=== PATIENT | male | born 1990 | race African-American/Black ===

== ENCOUNTER 2017-03-22 18:22 | Emergency (ER) | payer SELFPAY ==
[2017-03-22 18:33] VITALS: BP 127/74
[2017-03-22] MEDS ORDERED: DOXYcycline CAP(*) 100 MG PO ONE (19:14)
--- NOTE | 2017-03-22 20:08 | UC ---
Radha Medrano Emily, scribed for Kennedy Summers MD on 03/22/17 at 1905 . Complaint Male HPI - HPI Summary HPI Summary: This patient is a 26 year old M presenting to [facility] with a chief complaint of dysuria since approximately one week ago. He states it hurts in his groin when he urinates but it does not burn. Symptoms alleviated by nothing. Patient reports increased thirst, weight loss, dehydration, lightheadedness, suprapubic abdominal pain, vomiting, urinary frequency, vision changes (thought he saw light out of the corner of his eye), and loss of appetite. Patient denies penile discharge, and hematuria. He takes a baby ASA daily. He reports working 80 hours a week. PMHx of A-Fib (Cardioversion 5 years ago). Medications reviewed. Allergies reviewed. - History of Current Complaint Chief Complaint: UCGeneralIllness Stated Complaint: UTI Time Seen by Provider: 03/22/17 18:46 Hx Obtained From: Patient Onset/Duration: Sudden Onset, Lasting Weeks - 1, Still Present Timing: Constant Severity Initially: Moderate Severity Currently: Moderate Location: Groin Alleviating Factor(s): Nothing Associated Signs And Symptoms: Positive: Dysuria, Vomiting(# Of Episodes =). Negative: Hematuria, Appetite, Penile Discharge - Allergies/Home Medications Allergies/Adverse Reactions: Allergies Allergy/AdvReac Type Severity Reaction Status Date / Time Eggs or Egg-derived Products Allergy Severe Hives Verified 03/22/17 18:35 Gluten Meal Allergy Abdominal Verified 03/22/17 18:35 Pain Milk-related Compounds Allergy Abdominal Verified 03/22/17 18:35 Pain Peanut-containing Drug Allergy Airway Verified 03/22/17 18:35 Products Obstruction BANANAS Allergy Severe Rash Uncoded 03/22/17 18:35 Home Medications: Home Medications Cetirizine* [ZyrTEC 10 MG TAB*] 1 cap PO DAILY 03/22/17 [History Confirmed 03/22] PMH/Surg Hx/FS Hx/Imm Hx Cardiovascular History: Atrial Fibrillation Other History Of: Anticoagulant Therapy - asa 325mg daily - Surgical History Surgical History: None - Family History Known Family History: Positive: Diabetes - Social History Alcohol Use: Occasionally Substance Use Type: Marijuana Smoking Status (MU): Heavy Every Day Tobacco Smoker Amount Used/How Often: 1/2 PPD - Immunization History Most Recent Tetanus Shot: last year 2011, at dr yen[facility] Review of Systems Eyes: Other - vision changes (thought he saw light out of the corner of his eye) Gastrointestinal: Abdominal Pain - suprapubic, Vomiting, Other - increased thirst, weight loss, dehydration, loss of appetite Genitourinary: Dysuria, Frequency, Other - Negative penile discharge and hematuria. Neurological: Other - lightheadedness All Other Systems Reviewed And Are Negative: Yes Physical Exam Triage Information Reviewed: Yes Vital Signs: Initial Vital Signs Temp 98.1 F 03/22/17 18:29 Pulse 97 03/22/17 18:29 Resp 12 03/22/17 18:29 BP 127/74 03/22/17 18: Pulse Ox 100 03/22/17 18:29 Vital Signs Reviewed: Yes - Additional Comments The patient is well-nourished in no acute distress and in no acute pain. The skin is warm and dry and skin color reflects adequate perfusion. HEENT: The head is normocephalic and atraumatic. The pupils are equal and reactive. The conjunctivae are clear and without drainage. Nares are patent and without drainage. Mouth reveals moist mucous membranes and the throat is without erythema and exudate. The external ears are intact. The ear canals are patent and without drainage. The tympanic membranes are intact. Neck is supple with full range of motion and non-tender. There are no carotid bruits. There is no neck vein distension. Respiratory: Chest is non-tender. Lungs are clear to auscultation and breath sounds are symmetrical and equal. Cardiovascular: Heart is regular rate and rhythm. There is no murmur or rub auscultated. There is no peripheral edema and pulses are symmetrical and equal. Abdomen: The abdomen is soft and non-tender. There are normal bowel sounds heard in all four quadrants and there is no organomegaly palpated. Bilateral inguinal adenopathy. Testicles nontender. Musculoskeletal: There is no back pain noted. Extremities are non-tender with full range of motion. There is good capillary refill. There is no peripheral edema or calf tenderness elicited. Neurological: Patient is alert and oriented to person, place and time. The patient has symmetrical motor strength in all four extremities. Cranial nerves are grossly intact. Deep tendon reflexes are symmetrical and equal in all four extremities. Psychiatric: The patient has an appropriate affect and does not exhibit any anxiety or depression. Complaint Male Course/Dx - Course Course Of Treatment: This patient is a 26 year old M presenting to [facility] with a chief complaint of dysuria since approximately one week ago. He states it hurts in his groin when he urinates but it does not burn. Symptoms alleviated by nothing. Patient reports increased thirst, weight loss, dehydration, lightheadedness, suprapubic abdominal pain, vomiting, urinary frequency, vision changes (thought he saw light out of the corner of his eye), and loss of appetite. Patient denies penile discharge, and hematuria. He takes a baby ASA daily. He reports working 80 hours a week. PMHx of A-Fib (Cardioversion 5 years ago). Medications reviewed. Allergies reviewed. Patient will be discharged with prescription and follow up from PCP. The patient is agreeable with this plan. - Differential Dx/Diagnosis Differential Diagnosis/HQI/PQRI: Prostatitis, Urinary Tract Infection, Other - std, diabetes mellitus Provider Diagnoses: Prostatitis, hematuria. Discharge - Discharge Plan Condition: Stable Disposition: HOME Prescriptions: DOXYcycline CAP(*) [DOXYcycline 100MG CAP(*)] 100 mg PO BID #18 cap Patient Education Materials: Prostatitis (ED), Hematuria (ED) Referrals: [facility] [Outside] - 7 Days The documentation as recorded by the Radha pardo Emily accurately reflects the service I personally performed and the decisions made by me, Kennedy Summers MD.
== END 2017-03-22 19:28 | disposition home or self-care (01) ==
LOC: UCEAST 18:22
DX: N41.9 Inflammatory disease of prostate, unspecified (principal); R31.9 Hematuria, unspecified; R30.0 Dysuria; R11.10 Vomiting, unspecified; R63.4 Abnormal weight loss; R42 Dizziness and giddiness; E86.0 Dehydration; I48.91 Unspecified atrial fibrillation; Z79.82 Long term (current) use of aspirin; F12.90 Cannabis use, unspecified, uncomplicated; F17.210 Nicotine dependence, cigarettes, uncomplicated
CPT/HCPCS: 81003; 87086; 87491; 87591; 99212; A9270-GY; G0463

== ENCOUNTER 2017-04-24 05:52 | Observation (INO) | payer SELFPAY ==
[2017-04-24 06:42] LABS: Hematocrit 44 % (42-52); Hemoglobin 14.5 g/dl (14.0-18.0); Mean Corpuscular HGB Conc 33 g/dl (31-36); Mean Corpuscular Hemoglobin 29 pg (27-31); Mean Corpuscular Volume 88 fL (80-94); Mean Platelet Volume 9 um3 (7.4-10.4); Red Blood Count 4.97 10^6/ul (4.0-5.4); Red Cell Distribution Width 14 % (10.5-15)
[2017-04-24 06:58] LABS: Albumin 4.7 g/dL (3.2-5.2); BUN/Creatinine Ratio 12.8 (8-20); Calcium 9.3 mg/dL (8.6-10.3); EGFR African American 122.9 (>60); EGFR Non-African American 95.6 (>60); Globulin 2.9 g/dL (2-4); Magnesium 1.9 mg/dL (1.9-2.7); Potassium 3.7 mmol/L (3.5-5.0); Total Bilirubin 0.6 mg/dL (0.2-1.0); Total Protein 7.6 g/dL (6.4-8.9)
[2017-04-24 07:23] LABS: TSH (Thyroid Stimulating Horm) 0.41 mcIU/mL (0.34-5.60)
[2017-04-24 07:25] LABS: Troponin I 0.05 ng/mL (<0.04)
--- NOTE | 2017-04-24 07:58 | RAD ---
HISTORY: Chest pain, history of dextrocardia COMPARISONS: October 27, 2012, September 25, 2012 VIEWS: 4: Frontal dual-energy and lateral views of the chest. FINDINGS: CARDIOMEDIASTINAL SILHOUETTE: There is a right-sided cardiac silhouette with a right-sided aortic arch. SCOT: The scot are normal. PLEURA: The costophrenic angles are sharp. No pleural abnormalities are noted. LUNG PARENCHYMA: The lungs are clear. ABDOMEN: The upper abdomen is clear. There is no subphrenic gas. BONES AND SOFT TISSUES: No bone or soft tissue abnormalities are noted. OTHER: None. 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 NO ACTIVE CARDIOPULMONARY DISEASE
[2017-04-24] MEDS ORDERED: Nicotine Inhaler* 10 MG AMP INH PRN (13:36)
[2017-04-24] MEDS ORDERED: Mouth Piece, Nicotine* 1 EACH CARTRIDGE INH PRN (13:36)
--- NOTE | 2017-04-24 14:24 | ED ---
French Medrano Rebecca, scribed for Maribell Bass MD on 04/24/17 at 0640 . Palpitations / Dysrhythmia - HPI Summary HPI Summary: Pt is a 26 y/o M who presents to ED c/o palpitations characterized as fast, described as "heart racing." Sx have been present for approximately 45 minutes. Sx aggravated and alleviated by nothing. Additionally c/o R hand numbness and L- sided "chest swelling." Pt reports using EtOH, marijuana and cocaine tonight and he is unsure of the amount. Pt confirms that he has used cocaine in the past and he has not had prior similar episodes of symptoms s/p use. PMHx A Fib that was cardioverted and dextrocardia. - History of Current Complaint Chief Complaint: EDDysrhythmPalp Time Seen by Provider: 04/24/17 06:13 Hx Obtained From: Patient, Family/Resolution Specialist - 2 male friends with pt Onset/Duration: Lasting Minutes, Still Present Timing: Constant Severity Initially: Moderate Severity Currently: Moderate Character: Fast Aggravating: Nothing Alleviating: Nothing Associated Signs & Symptoms: Dizzy, Chest Pain - Allergy/Home Medications Allergies/Adverse Reactions: Allergies Allergy/AdvReac Type Severity Reaction Status Date / Time Eggs or Egg-derived Products Allergy Severe Hives Verified 04/24/17 06:16 Gluten Meal Allergy Abdominal Verified 04/24/17 06:16 Pain Milk-related Compounds Allergy Abdominal Verified 04/24/17 06:16 Pain Peanut-containing Drug Allergy Airway Verified 04/24/17 06:16 Products Obstruction BANANAS Allergy Severe Rash Uncoded 04/24/17 06:16 PMH/Surg Hx/FS Hx/Imm Hx Endocrine/Hematology History: Reports: Hx Anticoagulant Therapy - asa 325mg daily Denies: Hx Diabetes, Hx Thyroid Disease Cardiovascular History: Denies: Hx Hypertension, Hx Pacemaker/ICD Comment Only: 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 Respiratory History: Denies: Hx Chronic Obstructive Pulmonary Disease (COPD) Comment Only: Hx Asthma - SEASONAL ALLERGIES GI History: Denies: Hx Ulcer Neurological History: Denies: Hx Seizures - Surgical History Surgery Procedure, Year, and Place: no prior surg - Immunization History Date of Tetanus Vaccine: 2011 Date of Influenza Vaccine: NONE; ALLERGIC Infectious Disease History: No Infectious Disease History: Denies: Hx Hepatitis, Hx Human Immunodeficiency Virus (HIV), Traveled Outside the [place] in Last 30 Days - Family History Known Family History: Positive: Diabetes - Social History Alcohol Use: Occasionally Substance Use Type: Reports: Cocaine, Marijuana Substance Use Comment - Amount & Last Used: tonight Hx Tobacco Use: Yes - FEW YEARS AGO Smoking Status (MU): Heavy Every Day Tobacco Smoker Amount Used/How Often: 1/2 PPD Review of Systems Constitutional: Negative Positive: Palpitations - fast, Other - L-sided chest swelling Respiratory: Negative Positive: Numbness - R hand numbness Psychological: Normal All Other Systems Reviewed And Are Negative: Yes Physical Exam Triage Information Reviewed: Yes Vital Signs On Initial Exam: Initial Vitals Temp Pulse Resp BP Pulse Ox 98.4 F 90 14 166/94 100 04/24/17 06:03 04/24/17 06:03 04/24/17 06:03 04/24/17 06:03 04/24/17 06:03 Vital Signs Reviewed: Yes Appearance: Positive: No Pain Distress, Well-Nourished, Ill-Appearing - mildly Skin: Positive: Warm, Skin Color Reflects Adequate Perfusion Head/Face: Positive: Normal Head/Face Inspection Eyes: Positive: EOMI, Conjunctiva Clear ENT: Positive: Normal ENT inspection Neck: Positive: Supple, Nontender Respiratory/Lung Sounds: Positive: Clear to Auscultation, Breath Sounds Present , Other - No respiratory distress Cardiovascular: Positive: RRR, Pulses are Symmetrical in both Upper and Lower Extremities, Other - Brisk capillary refill, point of maximal impulse is on the right. Negative: Murmur Abdomen Description: Positive: Nontender, No Organomegaly, Soft Musculoskeletal: Positive: Strength/ROM Intact Neurological: Positive: Sensory/Motor Intact, Alert, Oriented to Person Place, Time, Facial Symmetry, Speech Normal Psychiatric: Positive: Normal - Karen Coma Scale Coma Scale Total: 15 Diagnostics - Vital Signs Vital Signs Temp Pulse Resp BP Pulse Ox 04/24/17 06:03 98.4 F 90 14 166/94 100 - Laboratory Lab Results: Lab Results 04/24/17 04/24/17 04/24/17 Range/Units 06:28 06:28 06:28 WBC 8.0 (3.5-10.8) 10^3/ul RBC 4.97 (4.0-5.4) 10^6/ul Hgb 14.5 (14.0-18.0) g/dl Hct 44 (42-52) % MCV 88 (80-94) fL MCH 29 (27-31) pg MCHC 33 (31-36) g/dl RDW 14 (10.5-15) % Plt Count 135 L (150-450) 10^3/ul MPV 9 (7.4-10.4) um3 Neut % (Auto) 64.0 (38-83) % Lymph % (Auto) 24.2 L (25-47) % Osborne % (Auto) 10.7 H (1-9) % Eos % (Auto) 0.5 (0-6) % Baso % (Auto) 0.6 (0-2) % Absolute Neuts (auto) 5.1 (1.5-7.7) 10^3/ul Absolute Lymphs (auto) 1.9 (1.0-4.8) 10^3/ul Absolute Monos (auto) 0.9 H (0-0.8) 10^3/ul Absolute Eos (auto) 0 (0-0.6) 10^3/ul Absolute Basos (auto) 0 (0-0.2) 10^3/ul Absolute Nucleated RBC 0.01 10^3/ul Nucleated RBC % 0.1 Sodium 135 (133-145) mmol/L Potassium 3.7 (3.5-5.0) mmol/L Chloride 99 L (101-111) mmol/L Carbon Dioxide 30 (22-32) mmol/L Anion Gap 6 (2-11) mmol/L BUN 12 (6-24) mg/dL Creatinine 0.94 (0.67-1.17) mg/dL Est GFR ( Amer) 122.9 (>60) Est GFR (Non-Af Amer) 95.6 (>60) BUN/Creatinine Ratio 12.8 (8-20) Glucose 181 H (70-100) mg/dL Lactic Acid 1.7 (0.5-2.0) mmol/L Calcium 9.3 (8.6-10.3) mg/dL Magnesium 1.9 (1.9-2.7) mg/dL Total Bilirubin 0.60 (0.2-1.0) mg/dL AST 22 (13-39) U/L ALT 14 (7-52) U/L Alkaline Phosphatase 55 (34-104) U/L Total Creatine Kinase 303 H (10-223) U/L CK-MB (CK-2) 2.3 (0.6-6.3) ng/mL Troponin I 0.05 H* (<0.04) ng/mL B-Natriuretic Peptide ( - 100) pg/mL Total Protein 7.6 (6.4-8.9) g/dL Albumin 4.7 (3.2-5.2) g/dL Globulin 2.9 (2-4) g/dL Albumin/Globulin Ratio 1.6 (1-3) TSH 0.41 (0.34-5.60) mcIU/mL 04/24/17 Range/Units 06:28 WBC (3.5-10.8) 10^3/ul RBC (4.0-5.4) 10^6/ul Hgb (14.0-18.0) g/dl Hct (42-52) % MCV (80-94) fL MCH (27-31) pg MCHC (31-36) g/dl RDW (10.5-15) % Plt Count (150-450) 10^3/ul MPV (7.4-10.4) um3 Neut % (Auto) (38-83) % Lymph % (Auto) (25-47) % Osborne % (Auto) (1-9) % Eos % (Auto) (0-6) % Baso % (Auto) (0-2) % Absolute Neuts (auto) (1.5-7.7) 10^3/ul Absolute Lymphs (auto) (1.0-4.8) 10^3/ul Absolute Monos (auto) (0-0.8) 10^3/ul Absolute Eos (auto) (0-0.6) 10^3/ul Absolute Basos (auto) (0-0.2) 10^3/ul Absolute Nucleated RBC 10^3/ul Nucleated RBC % Sodium (133-145) mmol/L Potassium (3.5-5.0) mmol/L Chloride (101-111) mmol/L Carbon Dioxide (22-32) mmol/L Anion Gap (2-11) mmol/L BUN (6-24) mg/dL Creatinine (0.67-1.17) mg/dL Est GFR ( Amer) (>60) Est GFR (Non-Af Amer) (>60) BUN/Creatinine Ratio (8-20) Glucose (70-100) mg/dL Lactic Acid (0.5-2.0) mmol/L Calcium (8.6-10.3) mg/dL Magnesium (1.9-2.7) mg/dL Total Bilirubin (0.2-1.0) mg/dL AST (13-39) U/L ALT (7-52) U/L Alkaline Phosphatase (34-104) U/L Total Creatine Kinase (10-223) U/L CK-MB (CK-2) (0.6-6.3) ng/mL Troponin I (<0.04) ng/mL B-Natriuretic Peptide 11 ( - 100) pg/mL Total Protein (6.4-8.9) g/dL Albumin (3.2-5.2) g/dL Globulin (2-4) g/dL Albumin/Globulin Ratio (1-3) TSH (0.34-5.60) mcIU/mL Result Diagrams: 04/24/17 06:28 04/24/17 06:28 Lab Statement: Any lab studies that have been ordered have been reviewed, and results considered in the medical decision making process. - Radiology CXR Xray Interpretation: Positive (See Comments) - Dextrocardia. Radiology Interpretation Completed By: ED Physician - EKG 0604 Cardiac Rate: NL - [address] Segment: Non-Specific - inverted Ts in V4, V5, V6 and coved STs in V2 and V3 EKG Interpretation: Right leads: Nl AV/IV CT, nl QTC, nl axis, RAD, LVH 0612 Cardiac Rate: NL - [address] Segment: Non-Specific - Coved STs in V1-V3 EKG Interpretation: Left Leads: Nl AV/IV CT, nl QTC, RAD EKG Comparison: Other - As compared with EKG at 0604 (right heart leads) there are no T wave inversions Course/Dx - Course Assessment/Plan: Pt is a 26 y/o M who presents to ED c/o palpitations characterized as fest, described as "heart racing." Sx have been present for approximately 45 minutes. Sx aggravated and alleviated by nothing. Additionally c/o R hand numbness and L-sided "chest swelling." Pt reports using EtOH, marijuana and cocaine tonight and he is unsure of the amount. Pt confirms that he has used cocaine in the past and he has not had prior similar episodes of symptoms s/p use. PMHx A Fib and dextrocardia. Both right sided lead and left sided lead EKG's done without sign of a STEMI. Troponin of 0.05. CXR reveals destrocardia. Discussed care of pt with Dr. Wetzel who recommended admission to hospitalist services. Elevated BP noted. - Diagnoses Differential Diagnosis/HQI/PQRI: Positive: Cardiomyopathy, Congestive Heart Failure, Pericarditis, Pulmonary Embolism, Other - ACS, MS Provider Diagnoses: Elevated BP without diagnosis of hypertension, Chest pain, Cocaine abuse, Marijuana abuse, Dextrocardia - Physician Notifications Discussed Care Of Patient With: Fabien Wetzel Time Discussed With Above Provider: 07:29 Instructed by Provider To: Other - Advised that the pt avoid beta-blockers and that it is alright for him to receive NTG. Recommended admission for observation and an echocardiogram. Discharge - Discharge Plan Condition: Good Disposition: ADMITTED TO [facility] documentation as recorded by the French pardo Rebecca accurately reflects the service I personally performed and the decisions made by , Maribell Bass MD.
--- NOTE | 2017-04-24 16:04 | ECHO ---
Patient: RONI TATE [facility] Rec#: [id number] : 1990 Date: 04/24/2017 Age: 26y Height: 182.88 cm / 72.0 in Weight: 86.18 kg / 189.9 lbs Sex: M BSA: 2.08 Room#: [facility] Admit Date#: 04/24/2017 Type: Inpatient Referring: ADÁN REYNOLDS MD Reading: Fabien Wetzel DO Inspector Quality Assurance: [facility] Indication: Chest pain BP: 124/68 HR: 64 Rhythm: NSR Findings History: Dextrocardia with situs inversus, a-fib, smoker, and substance abuse. Technical Comments: The study quality is good. Completed at 1500. Left Ventricle: The left ventricular chamber size is normal. Mild concentric left ventricular hypertrophy is observed. Global left ventricular wall motion and contractility are within normal limits. There is normal left ventricular systolic function. The estimated ejection fraction is 55-60%. Normal left ventricular diastolic filling is observed. Left Atrium: The left atrial chamber size is normal. Right Ventricle: The right ventricular chamber size and systolic function are within normal limits. Right Atrium: The right atrial cavity size is normal. Aortic Valve: The aortic valve is trileaflet. There is no evidence of aortic regurgitation. There is no evidence of aortic stenosis. Mitral Valve: The mitral valve leaflets appear normal. There is a trace of mitral regurgitation. There is no evidence of mitral stenosis. Tricuspid Valve: The tricuspid valve leaflets are normal. There is a physiologic tricuspid regurgitation. No pulmonary hypertension is noted. There is no tricuspid stenosis. Pulmonic Valve: The pulmonic valve appears normal. There is a trace pulmonic regurgitation. There is no pulmonic stenosis. Pericardium: There is no significant pericardial effusion. Aorta: There is no dilatation of the ascending aorta. There is no dilatation of the aortic arch. The aortic root is normal in size. Pulmonary Artery: The main pulmonary artery appears normal. Venous: The inferior vena cava appears normal in size. There is a greater than 50% respiratory change in the inferior vena cava dimension. Conclusions The left ventricular chamber size is normal. Mild concentric left ventricular hypertrophy is observed. Global left ventricular wall motion and contractility are within normal limits. There is normal left ventricular systolic function. The estimated ejection fraction is 55-60%. The left atrial chamber size is normal. The right ventricular chamber size and systolic function are within normal limits. No significant valvular abnormalities noted. No pulmonary hypertension is noted. Patient with known dextrocardia No recent transthoracic images available for comparison at time of examination Measurements Name Value Normal Range RVIDd (AP) 2D 2.9 cm (0.9 - 2.6) RVDdMajor (2D) 3.6 cm (2.2 - 4.4) RA (A4C)W 4.5 cm (2.9 - 4.6) IVSd (2D) 1.1 cm (0.6 - 1) LVPWd (2D) 1.1 cm (0.6 - 1) LVIDd (2D) 4.9 cm (3.6 - 5.4) LVIDs (2D) 3.2 cm - LV FS (2D) 35 % (25 - 45) Aortic Annulus 2.6 cm (1.4 - 2.6) Ao root diameter (2D) 3.2 cm (2.1 - 3.5) Ascending Ao 2.8 cm (2.1 - 3.4) Aortic arch 2.9 cm (1.8 - 3.4) LA dimension (AP) 2D 3.2 cm (2.3 - 3.8) LAd ISD 4CH 5.9 cm (2.9 - 5.3) LA ISD 4CH W 4.3 cm (2.5 - 4.5) Name Value Normal Range LA ESV SP 4CH (A/L) 68 ml - LA ESV SP 2CH (A/L) 78 ml - LA ESV BP (A/L) 74 ml - LA ESV BP (A/L) index 35.22 ml/m2 - LA ESV SP 4CH (MOD) 58 ml - LA ESV SP 2CH (MOD) 75 ml - Name Value Normal Range MV E-wave Vmax 0.84 m/sec - MV deceleration time 249.1 msec - MV A-wave Vmax 0.38 m/sec - MV E:A ratio 2.2 ratio - LV septal e' Vmax 0.11 m/sec - LV lateral e' Vmax 0.19 m/sec - LV E:e' septal ratio 7.64 ratio - LV E:e' lateral ratio 4.42 ratio - Name Value Normal Range AV Vmax 1.24 m/sec - AV VTI 24.2 cm - AV peak gradient 6.16 mmHg - AV mean gradient 3.21 mmHg - LVOT Vmax 0.99 m/sec - LVOT VTI 20.97 cm - LVOT peak gradient 3.92 mmHg - LVOT mean gradient 2.27 mmHg - BLANE Vmax 1.04 m/sec - Name Value Normal Range TR Vmax 1.7 m/sec - TR peak gradient 12 mmHg - RAP 3 mmHg - RVSP 15 mmHg - IVC diameter 2 cm - Name Value Normal Range PV Vmax 0.88 m/sec - PV peak gradient 3.07 mmHg -
[2017-04-24 16:44] VITALS: BP 104/55
--- NOTE | 2017-04-24 20:59 | HP ---
HISTORY AND PHYSICAL/DISCHARGE SUMMARY: DATE OF ADMISSION: 04/24/17 CHIEF COMPLAINT: Chest pain and palpitations after cocaine use. HISTORY OF PRESENT ILLNESS: Mr. Lundy is a 26-year-old man with past medical history of dextrocardia who presented to the hospital with chest pain, palpitations, and reported some right hand numbness and tingling a few hours after using cocaine. The patient states he was out last night with his friends , had a few drinks and then around midnight he used cocaine, which he states he does about once a month. Within a few hours he reported "chest swelling, palpitations, and left-sided pain." When the symptoms came on, he was back home just watching TV. He was concerned, so came to the emergency department for further evaluation. On my exam, he states the chest pain was still present , but was very mild. Denied any shortness of breath, diaphoresis, fever, chills , nausea, vomiting. Initial troponin was 0.05. Hospitalist service was consulted to consider the patient for observation. PAST MEDICAL HISTORY: Dextrocardia. He reports history of AFib in the past that he was cardioverted for. PAST SURGICAL HISTORY: None. HOME MEDICATIONS: Allergy medication once a day. ALLERGIES: The patient reports no known drug allergies. FAMILY HISTORY: Denies any significant family history. SOCIAL HISTORY: The patient is a half a pack per day smoker, uses cocaine about once a month, occasionally used marijuana. Denies any IV drug use. Up-to -date on HIV testing, which he states he had 2 weeks ago. REVIEW OF SYSTEMS: A 12-point review of systems is negative except for that noted in the HPI aside from reported hematuria and urinary tract infection recently. PHYSICAL EXAMINATION GENERAL: The patient is a middle-aged Afirican-Mongolian male, lying in bed, in no acute distress. VITAL SIGNS: On admission, temperature 98.4, heart rate 90, respiratory rate of 14, O2 saturation 100% on room air, blood pressure 166/94. HEENT: Head normocephalic, atraumatic. Eyes, pupils equal, round and reactive to light and accommodation. Anicteric sclerae. ENT: Moist mucous membranes. NECK: No cervical adenopathy. LUNGS: Clear to auscultation bilaterally. No wheezes, rales, or rhonchi. CARDIOVASCULAR: Right-sided heart sounds. Regular rate and rhythm. No murmurs , gallops, or rubs. ABDOMEN: Soft. DIAGNOSTIC STUDIES/LABORATORY DATA: EKG difficult to compare with dextrocardia with the final read, but did not appear to have any acute ischemic changes. Initial troponin of 0.05. Subsequent troponins were negative. Echocardiogram was done that showed normal left ventricular chamber size, mild concentric LVH, global left ventricular wall motion and contractility within normal limits. Normal LV systolic function with EF of 55% to 60%. Normal left atrial chamber size, right ventricular chamber size, systolic function within normal limits. No significant valvular abnormalities. No pulmonary hypertension. The patient with known dextrocardia. ASSESSMENT AND PLAN: Chest pain induced by cocaine and palpitations in a 26- year- old man with a history of dextrocardia and reported atrial fibrillation in the past. The patient was monitored on telemetry and as noted above, subsequent troponins remain negative. Echocardiogram was unremarkable. The patient still had some mild chest discomfort and was encouraged to use Tylenol or ibuprofen. I do not think he has any ischemic issues aside from perhaps some mild cocaine-induced changes. He was counseled on cessation of cocaine use , which he states he is agreeable to. The patient will be discharged home and should follow up with a primary care doctor. TIME SPENT: Total time spent on this history and discharge, 60 minutes. This is a summary of the hospitalization. Please see the full medical record for further details. [id number] #: [id number] MTDD
== END 2017-04-24 17:25 | disposition home or self-care (01) ==
LOC: ED 05:52 → MEDTELE 08:30
PROVIDERS: ADMIT Internal Medicine; ATTEND Hospitalist
DX: R07.9 Chest pain, unspecified (principal); R00.1 Bradycardia, unspecified; R20.0 Anesthesia of skin; F14.10 Cocaine abuse, uncomplicated; Q24.0 Dextrocardia; F17.210 Nicotine dependence, cigarettes, uncomplicated; Z79.899 Other long term (current) drug therapy; Z79.82 Long term (current) use of aspirin; R94.31 Abnormal electrocardiogram [ECG] [EKG]
CPT/HCPCS: 36415; 71020; 80053; 82550; 82553; 83605; 83735; 83880; 84443; 84484; 85025; 93005; 93306; 99284; 99406; A9270-GY; G0378

== ENCOUNTER 2017-06-29 17:13 | Emergency (ER) | payer SELFPAY ==
[2017-06-29 17:19] VITALS: BP 140/84
[2017-06-29] MEDS ORDERED: Ketorolac INJ* 30 MG/ML 1 ML VIAL IV PUSH ONE (17:46)
--- NOTE | 2017-06-29 17:55 | UC ---
Osorio Medrano Gabriel, scribed for Thien Mcrae MD on 06/29/17 at 1737 . Abdominal Pain Male HPI - HPI Summary HPI Summary: This patient is a 26 year old M presenting to [facility] with a chief complaint of left sided ABD pain since yesterday. The patient rates the pain 10/10 in severity radiating into his grown and testicle. Symptoms aggravated by bending down. Patient reports increased urinary frequency. Patient believes he ate something he is allergic to yesterday at [facility]. - History of Current Complaint Chief Complaint: UCGU Stated Complaint: ABD/GROIN PAIN Hx Obtained From: Patient Onset/Duration: Lasting Days - 1, Still Present Timing: Constant Severity Initially: Moderate Severity Currently: Severe Pain Intensity: 10 Pain Scale Used: 0-10 Numeric Radiates: Yes Radiates to: Inguinal Associated Signs And Symptoms: Positive: Urinary Symptoms - Allergies/Home Medications Allergies/Adverse Reactions: Allergies Allergy/AdvReac Type Severity Reaction Status Date / Time Eggs or Egg-derived Products Allergy Severe Hives Verified 06/29/17 17:19 Gluten Meal Allergy Abdominal Verified 06/29/17 17:19 Pain Milk-related Compounds Allergy Abdominal Verified 06/29/17 17:19 Pain Peanut-containing Drug Allergy Airway Verified 06/29/17 17:19 Products Obstruction BANANAS Allergy Severe Rash Uncoded 06/29/17 17:19 Home Medications: Home Medications HYDROcodone/ACETAMIN 5-325 MG* [[place] 5-325 TAB*] 1 tab PO Q4H PRN 06/29/17 [ History Confirmed 06/29/17] PMH/Surg Hx/FS Hx/Imm Hx Previously Healthy: No Cardiovascular History: Atrial Fibrillation Other History Of: Anticoagulant Therapy - asa 325mg daily - Surgical History Surgical History: None Surgery Procedure, Year, and Place: no prior surg - Family History Known Family History: Positive: Hypertension, Diabetes - Social History Occupation: Employed Full-time Alcohol Use: Occasionally Substance Use Type: Marijuana Substance Use Comment - Amount & Last Used: rarely Smoking Status (MU): Heavy Every Day Tobacco Smoker Type: Cigarettes Amount Used/How Often: 1/2 PPD - Immunization History Most Recent Tetanus Shot: last year 2011, at [facility] Review of Systems Gastrointestinal: Abdominal Pain Genitourinary: Frequency - increased Musculoskeletal: Other: - pain radiating into groin All Other Systems Reviewed And Are Negative: Yes Physical Exam Triage Information Reviewed: Yes Appearance: Pain Distress Vital Signs: Initial Vital Signs Temp 99.0 F 06/29/17 17:15 Pulse 101 06/29/17 17:15 Resp 18 06/29/17 17:15 BP 140/84 06/29/17 17:15 Pulse Ox 100 06/29/17 17:15 Vital Signs Reviewed: Yes Eyes: Positive: Conjunctiva Clear ENT: Positive: Normal ENT inspection Neck: Positive: Supple, Nontender Respiratory: Positive: Lungs clear, Normal breath sounds Cardiovascular: Positive: RRR, No Murmur Abdomen Description: Positive: Nontender, Other: - No inguinal hernia present, no scrotal swelling or tenderness to palpation of the testes.. Negative: CVA Tenderness (R), CVA Tenderness (L), Distended, Guarding Musculoskeletal Exam: Normal Neurological Exam: Normal Psychological Exam: Normal Skin Exam: Normal Abd Pain Male Course/Dx - Course Course Of Treatment: 26 yr old with left side abdominal pain radiating into his left testes. Urine positive for blood. Favor renal stone over testes etiology. DW Dr Bass in the ER and patient going by ambulance for pain management and further work up. - Differential Dx/Clinical Impression Provider Diagnoses: left side abdominal pain. left testes pain Discharge - Discharge Plan Condition: Good Disposition: TRANS HIGHER LVL OF CARE FAC Referrals: No Primary Care Phys,NOPCP [Primary Care Provider] - The documentation as recorded by the Osorio pardo Gabriel accurately reflects the service I personally performed and the decisions made by me, Thien Mcrae MD.
== END 2017-06-29 18:07 | disposition short-term general hospital (02) ==
LOC: UCEAST 17:13
DX: R10.9 Unspecified abdominal pain (principal); N50.812 Left testicular pain; Z79.82 Long term (current) use of aspirin; I48.91 Unspecified atrial fibrillation; F17.210 Nicotine dependence, cigarettes, uncomplicated
CPT/HCPCS: 81003; 96374; 99213; G0463; J1885

== ENCOUNTER 2017-06-29 18:32 | Emergency (ER) | payer SELFPAY ==
[2017-06-29] MEDS ORDERED: Morphine INJ* 4 MG/ML 1 ML CARPUJECT IV ONE (18:56)
[2017-06-29] MEDS ORDERED: Ondansetron INJ* 2 MG/ML VIAL IV ONE (18:56)
[2017-06-29 19:02] LABS: Hematocrit 44 % (42-52); Hemoglobin 14.6 g/dl (14.0-18.0); Mean Corpuscular HGB Conc 33 g/dl (31-36); Mean Corpuscular Hemoglobin 29 pg (27-31); Mean Corpuscular Volume 87 fL (80-94); Mean Platelet Volume 9 um3 (7.4-10.4); Red Blood Count 5.04 10^6/ul (4.0-5.4); Red Cell Distribution Width 14 % (10.5-15); White Blood Count 9.1 10^3/ul (3.5-10.8)
[2017-06-29 19:08] LABS: Urine Bacteria Absent (Absent); Urine Bilirubin Negative (Negative); Urine Glucose Negative (Negative); Urine Nitrite Negative (Negative)
[2017-06-29 19:15] LABS: Albumin 4.2 g/dL (3.2-5.2); BUN/Creatinine Ratio 11.7 (8-20); Calcium 9.6 mg/dL (8.6-10.3); EGFR African American 110.6 (>60); Globulin 2.7 g/dL (2-4); Potassium 3.8 mmol/L (3.5-5.0); Total Bilirubin 0.4 mg/dL (0.2-1.0); Total Protein 6.9 g/dL (6.4-8.9)
--- NOTE | 2017-06-29 19:22 | RAD ---
CLINICAL HISTORY: Left-sided abdominal pain, hematuria, history of dextrocardia COMPARISON: None TECHNIQUE: Multiple contiguous axial CT scans were obtained of the abdomen and pelvis, without intravenous contrast enhancement. Coronal and sagittal multiplanar reformations are submitted for review. Oral contrast was not administered. FINDINGS: The study is limited by the lack of intravenous contrast. This limits evaluation of the solid organs and vasculature. 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 LIVER: There are low-attenuation hepatic parenchymal lesions that are too small to definitively characterize measuring up to 0.6 cm in size. BILE DUCTS: There is no intrahepatic or extrahepatic biliary dilatation. GALLBLADDER: The gallbladder is normal, without pericholecystic inflammatory change. PANCREAS: The pancreas is normal, without mass or ductal dilatation. SPLEEN: Normal in size and appearance. UPPER GI TRACT: Evaluation of the gastrointestinal tract is limited by incomplete gastric distention. The upper GI tract is unremarkable. SMALL BOWEL AND MESENTERY: The small bowel is normal in contour, course, and caliber. There is no obstruction or dilatation. COLON: The colon is normal in contour, course, caliber. There is no pericolonic inflammatory change. There is a tubular, vermiform, hollow viscus that is blind ending, and originates from the cecum, consistent with a normal appendix. There is no periappendiceal inflammatory change. This is best seen on axial images 61 through 74. ADRENALS: Normal bilaterally. KIDNEYS: There is a calculus in the region of the left UVJ, measuring 0.3 cm in size. There is mild hydroureter.. BLADDER: The bladder is collapsed and is not well evaluated. PELVIC ORGANS: The prostate gland is normal. The seminal vesicles are symmetric. AORTA: The aorta is normal. IVC: Unremarkable LYMPH NODES: There is no lymphadenopathy by size criteria. ABDOMINAL WALL: There is no evidence for abdominal wall hernia. BONES AND SOFT TISSUES: Mild degenerative changes are noted most mass at L5-S1 OTHER: None IMPRESSION: 1. SINUS INVERSUS. 2. 0.3 CM CALCULUS IN THE REGION OF THE LEFT UVJ WITH MILD HYDROURETER. 3. MULTIPLE LOW-ATTENUATION HEPATIC PARENCHYMAL LESIONS. THESE ARE TOO SMALL TO DEFINITIVELY CHARACTERIZE, BUT LIKELY REPRESENT SMALL CYSTS VERSUS HEMANGIOMAS.
--- NOTE | 2017-06-29 19:42 | RAD ---
HISTORY: Left testicular pain COMPARISONS: None TECHNIQUE: Multiple transverse and longitudinal ultrasound images were obtained of the scrotum, using grayscale, color Doppler, and spectral Doppler imaging. FINDINGS: RIGHT: RIGHT TESTICLE: The right testicle measures 3.8 x 1.8 x 3.1 cm. The right testicle is homogeneous in echotexture, without testicular parenchymal mass. Normal arterial and venous waveforms are identified within the right testicle on spectral Doppler imaging. RIGHT EPIDIDYMIS: The right epididymis measures 1 cm at the head. RIGHT SCROTUM: There is no hydrocele or varicocele. LEFT: LEFT TESTICLE: The left testicle measures 3.8 x 1.6 x 3.1 cm. The left testicle is homogeneous in echotexture, without testicular parenchymal mass. Normal arterial and venous waveforms are identified within the left testicle on spectral Doppler imaging. LEFT EPIDIDYMIS: The left epididymis measures 0.8 cm at the head. LEFT SCROTUM: There is a small left hydrocele. There is no varicocele. OTHER: None IMPRESSION: 1. NO TESTICULAR PARENCHYMAL MASS. 2. NO SONOGRAPHIC FEATURES OF TORSION. PLEASE NOTE THAT PARTIAL OR INTERMITTENT TORSION MAY BE SONOGRAPHICALLY NORMAL. 3. SMALL LEFT HYDROCELE
[2017-06-29] MEDS ORDERED: Tamsulosin CAP* 0.4 MG PO ONE (19:53)
[2017-06-29] MEDS ORDERED: HYDROmorphone INJ* 2 MG/ML CARPUJECT SYRINGE IV SLOW PU ONE (21:14)
[2017-06-29] MEDS ORDERED: oxyCODONE/Acetamin 5/325 MG* TAB PO ONE (22:58)
--- NOTE | 2017-06-29 22:58 | ED ---
GI/ HPI - HPI Summary HPI Summary: 26M presents with left sided abdominal pain. He states pain radiates from LLQ to left groin. Patient believes he ate something he is allergic to yesterday at [facility] when it first started but he denies any diarrhea. He had one episode of vomiting. He admits to nausea. He had normal BM. He admits to urinary frequency and dysuria. He denies any penile discharge. He had history of kidney stones years ago. He denies any previous abdominal surgeries. He took an oxy without relief. He denies any fevers. - History of Current Complaint Chief Complaint: EDAbdPain Time Seen by Provider: 06/29/17 18:43 Stated Complaint: ABD/GROIN PAIN Pain Intensity: 9 - Allergy/Home Medications Allergies/Adverse Reactions: Allergies Allergy/AdvReac Type Severity Reaction Status Date / Time Eggs or Egg-derived Products Allergy Severe Hives Verified 06/29/17 17:19 Gluten Meal Allergy Abdominal Verified 06/29/17 17:19 Pain Milk-related Compounds Allergy Abdominal Verified 06/29/17 17:19 Pain Peanut-containing Drug Allergy Airway Verified 06/29/17 17:19 Products Obstruction BANANAS Allergy Severe Rash Uncoded 06/29/17 17:19 PMH/Surg Hx/FS Hx/Imm Hx Endocrine/Hematology History: Reports: Hx Anticoagulant Therapy - asa 325mg daily Denies: Hx Diabetes, Hx Thyroid Disease Cardiovascular History: Denies: Hx Hypertension, Hx Pacemaker/ICD Comment Only: 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 Respiratory History: Denies: Hx Chronic Obstructive Pulmonary Disease (COPD) Comment Only: Hx Asthma - SEASONAL ALLERGIES GI History: Denies: Hx Ulcer History: Comment Only: Other Problems/Disorders - intermittent pain in stomach Sensory History: Denies: Hx Contacts or Glasses, Hx Hearing Aid Opthamlomology History: Denies: Hx Contacts or Glasses Neurological History: Denies: Hx Seizures - Surgical History Surgery Procedure, Year, and Place: no prior surg - Immunization History Date of Tetanus Vaccine: 2011 Date of Influenza Vaccine: NONE; ALLERGIC Infectious Disease History: No Infectious Disease History: Denies: Hx Hepatitis, Hx Human Immunodeficiency Virus (HIV), Traveled Outside the [place] in Last 30 Days - Family History Known Family History: Positive: Hypertension, Diabetes - Social History Alcohol Use: Occasionally Substance Use Type: Reports: Marijuana Substance Use Comment - Amount & Last Used: rarely Hx Tobacco Use: Yes - FEW YEARS AGO Smoking Status (MU): Heavy Every Day Tobacco Smoker Type: Cigarettes Amount Used/How Often: 1/2 PPD Review of Systems Negative: Fever Negative: Chest Pain Negative: Shortness Of Breath Positive: Abdominal Pain, Vomiting, Nausea. Negative: Diarrhea All Other Systems Reviewed And Are Negative: Yes Physical Exam Triage Information Reviewed: Yes Vital Signs On Initial Exam: Initial Vitals Temp Pulse Resp BP Pulse Ox 99.5 F 77 22 127/77 99 06/29/17 18:34 06/29/17 18:34 06/29/17 18:34 06/29/17 18:34 06/29/17 18:34 Vital Signs Reviewed: Yes Appearance: Positive: Pain Distress Skin: Positive: Warm, Dry Head/Face: Positive: Normal Head/Face Inspection Eyes: Positive: Normal, EOMI, NANNETTE, Conjunctiva Clear ENT: Positive: Normal ENT inspection, Pharynx normal, TMs normal Respiratory/Lung Sounds: Positive: Clear to Auscultation, Breath Sounds Present Cardiovascular: Positive: Normal, RRR Abdomen Description: Positive: Soft, CVA Tenderness (L), Other: - tenderness LLQ Bowel Sounds: Positive: Present Musculoskeletal: Positive: Normal Neurological: Positive: Normal Psychiatric: Positive: Normal Diagnostics - Vital Signs Vital Signs Temp Pulse Resp BP Pulse Ox 06/29/17 22:09 18 06/29/17 19:39 91 18 118/86 100 06/29/17 19:33 18 06/29/17 18:40 78 133/87 99 06/29/17 18:34 99.5 F 77 22 127/77 99 - Laboratory Lab Results: Lab Results 06/29/17 06/29/17 06/29/17 Range/Units 18:05 18:05 18:52 WBC 9.1 (3.5-10.8) 10^3/ul RBC 5.04 (4.0-5.4) 10^6/ul Hgb 14.6 (14.0-18.0) g/dl Hct 44 (42-52) % MCV 87 (80-94) fL MCH 29 (27-31) pg MCHC 33 (31-36) g/dl RDW 14 (10.5-15) % Plt Count 161 (150-450) 10^3/ul MPV 9 (7.4-10.4) um3 Neut % (Auto) 63.9 (38-83) % Lymph % (Auto) 21.0 L (25-47) % [place] % (Auto) 11.9 H (1-9) % Eos % (Auto) 2.8 (0-6) % Baso % (Auto) 0.4 (0-2) % Absolute Neuts (auto) 5.8 (1.5-7.7) 10^3/ul Absolute Lymphs (auto) 1.9 (1.0-4.8) 10^3/ul Absolute Monos (auto) 1.1 H (0-0.8) 10^3/ul Absolute Eos (auto) 0.3 (0-0.6) 10^3/ul Absolute Basos (auto) 0 (0-0.2) 10^3/ul Absolute Nucleated RBC 0.02 10^3/ul Nucleated RBC % 0.2 Sodium 140 (133-145) mmol/L Potassium 3.8 (3.5-5.0) mmol/L Chloride 103 (101-111) mmol/L Carbon Dioxide 26 (22-32) mmol/L Anion Gap 11 (2-11) mmol/L BUN 12 (6-24) mg/dL Creatinine 1.03 (0.67-1.17) mg/dL Est GFR ( Amer) 110.6 (>60) Est GFR (Non-Af Amer) 86.0 (>60) BUN/Creatinine Ratio 11.7 (8-20) Glucose 124 H (70-100) mg/dL Calcium 9.6 (8.6-10.3) mg/dL Total Bilirubin 0.40 (0.2-1.0) mg/dL AST 18 (13-39) U/L ALT 13 (7-52) U/L Alkaline Phosphatase 64 (34-104) U/L C-React Prot High Sens 0.53 mg/L Total Protein 6.9 (6.4-8.9) g/dL Albumin 4.2 (3.2-5.2) g/dL Globulin 2.7 (2-4) g/dL Albumin/Globulin Ratio 1.6 (1-3) Lipase 17 (11.0-82.0) U/L Urine Color Yellow Urine Appearance Clear Urine pH 6.0 (5-9) Ur Specific [place] 1.014 (1.010-1.030) Urine Protein Negative (Negative) Urine Ketones Negative (Negative) Urine Blood 2+ H (Negative) Urine Nitrate Negative (Negative) Urine Bilirubin Negative (Negative) Urine Urobilinogen Negative (Negative) Ur Leukocyte Esterase Negative (Negative) Urine WBC (Auto) Trace(0-5/hpf) (Absent) Urine RBC (Auto) 3+(>10/hpf) H (Absent) Urine Bacteria Absent (Absent) Urine Glucose Negative (Negative) Result Diagrams: 06/29/17 18:05 06/29/17 18:05 Lab Statement: Any lab studies that have been ordered have been reviewed, and results considered in the medical decision making process. - CT abd CT Interpretation: Positive (See Comments) - IMPRESSION: 1. SINUS INVERSUS. 2. 0.3 CM CALCULUS IN THE REGION OF THE LEFT UVJ WITH MILD HYDROURETER. 3. MULTIPLE LOW-ATTENUATION HEPATIC PARENCHYMAL LESIONS. THESE ARE TOO SMALL TO DEFINITIVELY CHARACTERIZE, BUT LIKELY REPRESENT SMALL CYSTS VERSUS HEMANGIOMAS. CT Interpretation Completed By: Radiologist - Ultrasound No standard instances Ultrasound Interpretation: No Acute Changes Ultrasound Interpretation Completed By: Radiologist Re-Evaluation - Re-Evaluation First Eval Re-Evaluation Time: 20:45 Change: Improved Comment: pain still 7/10 Second Eval Re-Evaluation Time: 22:50 Change: Improved Comment: pain is 3/10 so will discharge with pain meds GIGU Course/Dx - Course Course Of Treatment: 26M presents with left sided abdominal pain. He states pain radiates from LLQ to left groin. Patient believes he ate something he is allergic to yesterday at [employer] when it first started but he denies any diarrhea. He had one episode of vomiting. He admits to nausea. He had normal BM. He admits to urinary frequency and dysuria. He denies any penile discharge. He had history of kidney stones years ago. He denies any previous abdominal surgeries. He took an oxy without relief. on exam tenderness LLQ. urine shows blood. u/s normal. CT abd shows stone. will discharge with pain meds and flomax and urology referral. patient understand and agrees with plan. - Diagnoses Differential Diagnoses - Male: Pyelonephritis, Ureteral Calculi, Urinary Tract Infection Provider Diagnoses: Left ureteral stone Discharge - Discharge Plan Condition: Good Disposition: HOME Prescriptions: Ondansetron ODT TAB* [Zofran 4 MG Odt TAB*] 4 mg PO Q6H PRN #12 tab.odt PRN Reason: Nausea oxyCODONE/Acetamin 5/325 MG* [Percocet 5/325 TAB*] 1 tab PO Q6H PRN #16 tab MDD 4 PRN Reason: Pain Tamsulosin CAP* [Flomax CAP*] 0.4 mg PO DAILY #7 cap Patient Education Materials: Ureteral Stones (ED) Referrals: [facility]ERR[facility] [Outside] Lars Espinoza MD [Medical Doctor] - Additional Instructions: Take ibuprofen every 6 hours and narcotic as needed every 6 hours Take Zofran every 6 hours for nausea as needed Take Flomax daily starting tomorrow, first dose given in ED until stone expelled , make sure stand up slowly Follow up with urology, call office tomorrow for appointment Strain urine until collect stone Return to ED if unable to manage pain at home, develop fever, or any new or worsening symptoms
[2017-06-29 23:26] VITALS: BP 139/89
== END 2017-06-29 23:25 | disposition home or self-care (01) ==
LOC: ED 18:32
DX: N20.1 Calculus of ureter (principal); Z87.442 Personal history of urinary calculi; R11.2 Nausea with vomiting, unspecified; Q89.3 Situs inversus; Z79.82 Long term (current) use of aspirin; F17.210 Nicotine dependence, cigarettes, uncomplicated
CPT/HCPCS: 36415; 74176; 76870; 80053; 81003; 81015; 83690; 85025; 86141; 96374; 96375; 99283; A9270-GY; J1170; J2270; J2405

== ENCOUNTER 2017-07-04 09:15 | Emergency (ER) | payer SELFPAY ==
[2017-07-04] MEDS ORDERED: Ondansetron INJ* 2 MG/ML VIAL IV ONE (10:01)
[2017-07-04] MEDS ORDERED: Morphine INJ* 4 MG/ML 1 ML CARPUJECT IV ONE (10:01)
--- NOTE | 2017-07-04 10:07 | ED ---
GI/ HPI - HPI Summary HPI Summary: Pt here w/ persistent and worsening Lt sided flank and ab pain radiating into Lt testicle and penis. He started with Lt sided ab pain (sharp) last Thursday - this progressed so he went to and upon findings hematuria, was sent to ED. Here he was dx'd w/ 0.3cm urinary tract stone at the [facility]. He was provided with flomax, percocet and zofran which he's been taking but hasn't passed stone yet (has been straining urine every time). Zofran only helps nausea sometimes and pain is poorly controlled with percocet. Denies penile drainage, testicular swelling and still urinating although reports sometimes there is hesitation and only a few drops where other times he's able to void with normal stream. Denies fever but had a brief bout of chills the other day. Denies vomiting and had a normal BM this morning for the first time in a few days. Here today as he's concerned he hasn't passed this yet and pain is worse. Has been drinking lots of water and reports he's not had any ETOH since this started. - History of Current Complaint Chief Complaint: EDFlankPain Time Seen by Provider: 07/04/17 09:26 Stated Complaint: ABD/BACK PAIN Hx Obtained From: Patient Pain Intensity: 9 - Allergy/Home Medications Allergies/Adverse Reactions: Allergies Allergy/AdvReac Type Severity Reaction Status Date / Time Eggs or Egg-derived Products Allergy Severe Hives Verified 06/29/17 17:19 Gluten Meal Allergy Abdominal Verified 06/29/17 17:19 Pain Milk-related Compounds Allergy Abdominal Verified 06/29/17 17:19 Pain Peanut-containing Drug Allergy Airway Verified 06/29/17 17:19 Products Obstruction BANANAS Allergy Severe Rash Uncoded 06/29/17 17:19 PMH/Surg Hx/FS Hx/Imm Hx Previously Healthy: Yes Endocrine/Hematology History: Denies: Hx Anticoagulant Therapy - asa 325mg daily, Hx Diabetes, Hx Thyroid Disease Cardiovascular History: Denies: Hx Hypertension, Hx Pacemaker/ICD Comment Only: 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 Respiratory History: Denies: Hx Chronic Obstructive Pulmonary Disease (COPD) Comment Only: Hx Asthma - SEASONAL ALLERGIES GI History: Denies: Hx Ulcer History: Reports: Hx Kidney Stones Comment Only: Other Problems/Disorders - intermittent pain in stomach - multiple food allergies Sensory History: Denies: Hx Contacts or Glasses, Hx Hearing Aid Opthamlomology History: Denies: Hx Contacts or Glasses Neurological History: Denies: Hx Seizures - Surgical History Surgery Procedure, Year, and Place: no prior surg - Immunization History Date of Tetanus Vaccine: 2011 Date of Influenza Vaccine: NONE; ALLERGIC Infectious Disease History: No Infectious Disease History: Denies: Hx Hepatitis, Hx Human Immunodeficiency Virus (HIV), Traveled Outside the [place] in Last 30 Days - Family History Known Family History: Positive: Hypertension, Diabetes - Social History Occupation: Employed Part-time Lives: Alone Alcohol Use: Occasionally Substance Use Type: Reports: Marijuana Substance Use Comment - Amount & Last Used: rarely Hx Tobacco Use: Yes - FEW YEARS AGO Smoking Status (MU): Current Every Day Smoker Type: Cigarettes Amount Used/How Often: 1/2 PPD Review of Systems Positive: Chills. Negative: Fever Eyes: Negative ENT: Negative Cardiovascular: Negative Negative: Palpitations, Chest Pain Respiratory: Negative Negative: Shortness Of Breath, Cough Positive: Abdominal Pain, Nausea. Negative: Vomiting, Diarrhea Positive: see HPI Musculoskeletal: Negative Skin: Negative Neurological: Negative Negative: Headache Psychological: Normal - concerned but calm All Other Systems Reviewed And Are Negative: Yes Physical Exam Triage Information Reviewed: Yes Vital Signs On Initial Exam: Initial Vitals Temp Pulse Resp BP Pulse Ox 98.1 F 92 16 126/80 99 07/04/17 09:21 07/04/17 09:21 07/04/17 09:21 07/04/17 09:21 07/04/17 09:21 Vital Signs Reviewed: Yes Appearance: Positive: Well-Appearing, Well-Nourished, Pain Distress - moderate but is pleasant Skin: Positive: Warm, Dry Head/Face: Positive: Normal Head/Face Inspection Eyes: Positive: Normal, EOMI, Conjunctiva Clear - anicteric sclera ENT: Positive: Normal ENT inspection, Hearing grossly normal, Pharynx normal - mucosa moist Neck: Positive: Supple Respiratory/Lung Sounds: Positive: Clear to Auscultation, Breath Sounds Present Cardiovascular: Positive: RRR, S1, S2. Negative: Leg Edema Left, Leg Edema Right Abdomen Description: Positive: No Organomegaly, Soft, CVA Tenderness (L) - mild - percussion triggers radiating pain into ab/groin, Other: - LLQ - no rebounding. Negative: CVA Tenderness (R) Bowel Sounds: Positive: Present Male Genital Exam: Positive: normal genitalia - no edema. Negative: epididymal tenderness Musculoskeletal: Positive: Normal, Strength/ROM Intact Neurological: Positive: Normal, Sensory/Motor Intact, Alert, Oriented to Person Place, Time, CN Intact II-III Psychiatric: Positive: Normal Diagnostics - Vital Signs Vital Signs Temp Pulse Resp BP Pulse Ox 07/04/17 09:21 98.1 F 92 16 126/80 99 - Laboratory Result Diagrams: 07/04/17 10:53 07/04/17 10:53 Lab Statement: Any lab studies that have been ordered have been reviewed, and results considered in the medical decision making process. GIGU Course/Dx - Course Course Of Treatment: Pt here w/ Lt flank and side pain. Was dx'd w/ urinary tract stone. He has been straining his urine but still has not passed his stone. It was last seen on 06/29/[address] scan at the [facility] w/ mild hydroureter. An U/S revealed no hydronephrosis and flow through B/L urethral jets. He was provided pain meds which reduced pain and advised to start NSAID's in addition regimen he's been taking at home to aid in passing stone. He does not appear to have infection or renal failure based on labs and vital signs. Continue to strain. Reviewed danger s/sx of when to return to ED otherwise will f/u w/ urologist as recommended. Discussed w/ Dr. Alfonso - Diagnoses Provider Diagnoses: Left ureteral stone Discharge - Discharge Plan Condition: Stable Disposition: HOME Prescriptions: Ibuprofen TAB* [Motrin TAB* 800 MG] 800 mg PO Q8HR PRN #20 tab PRN Reason: Pain Patient Education Materials: Kidney Stones (ED), How to Strain Your Urine (ED) Referrals: Lars Espinoza MD [Medical Doctor] - Additional Instructions: Continue care as directed - an anti-inflammatory pain medication has been added to your regimen - keep this in your system to avoid return of pain. Continue to strain urine. Follow-up with urology - call Thursday to schedule an appointment. *If worse, return to ED
--- NOTE | 2017-07-04 10:43 | RAD ---
INDICATION: Left UVJ calculus with mild hydroureter. Left flank pain. COMPARISON: CT June 29, 2017 TECHNIQUE: Longitudinal and transverse scans of the kidneys were obtained. FINDINGS: Left kidney: The kidney is normal in size and echogenicity. No renal masses, calculi, or hydronephrosis is seen. The left kidney kidney measures 13.7 x 6.0 x 5.3 cm. Other: There are bilateral ureteral jets IMPRESSION: NO EVIDENCE OF HYDRONEPHROSIS. BILATERAL URETERAL JETS.
[2017-07-04 11:16] LABS: ABS Basophils 0 10^3/ul (0-0.2); ABS Eosinophils 0.2 10^3/ul (0-0.6); ABS Lymphocytes 1.9 10^3/ul (1.0-4.8); ABS Monocytes 0.6 10^3/ul (0-0.8); ABS Neutrophils 2.7 10^3/ul (1.5-7.7); ABS Nucleated RBC 0.01 10^3/ul; Eosinophil % 3.7 % (0-6); Hematocrit 41 % (42-52); Hemoglobin 13.3 g/dl (14.0-18.0); Lymphocyte % 35.1 % (25-47); Mean Corpuscular HGB Conc 33 g/dl (31-36); Mean Corpuscular Hemoglobin 29 pg (27-31); Mean Corpuscular Volume 88 fL (80-94); Mean Platelet Volume 9 um3 (7.4-10.4); Nucleated Red Blood Cells % 0.1; Platelet Count 154 10^3/ul (150-450); Red Blood Count 4.62 10^6/ul (4.0-5.4); Red Cell Distribution Width 13 % (10.5-15); White Blood Count 5.4 10^3/ul (3.5-10.8)
[2017-07-04 11:27] LABS: Urine Appearance Clear; Urine Blood 1+ (Negative); Urine Color Yellow; Urine Ketones Negative (Negative); Urine Protein Negative (Negative); Urine Specific Gravity 1.019 (1.010-1.030); Urine Urobilinogen Negative (Negative)
[2017-07-04 11:28] LABS: EGFR Non-African American 93.3 (>60)
[2017-07-04] MEDS ORDERED: Ketorolac INJ* 30 MG/ML 1 ML VIAL IV PUSH ONE (11:51)
[2017-07-04 13:12] VITALS: BP 123/79
== END 2017-07-04 13:11 | disposition home or self-care (01) ==
LOC: ED 09:15
DX: N20.1 Calculus of ureter (principal); F17.210 Nicotine dependence, cigarettes, uncomplicated
CPT/HCPCS: 36415; 76775; 80053; 81003; 81015; 83605; 85025; 86140; 96374; 96375; 99282; J1885; J2270; J2405

== ENCOUNTER 2017-08-30 03:18 | Emergency (ER) | payer SELFPAY ==
[2017-08-30] MEDS ORDERED: Ketorolac INJ* 60 MG/2 ML VIAL IM ONE (05:03)
[2017-08-30] MEDS ORDERED: oxyCODONE/Acetamin 5/325 MG* TAB PO ONE (05:04)
[2017-08-30 05:43] VITALS: BP 128/71
--- NOTE | 2017-08-30 05:48 | ED ---
Juan Alberto Medrano Tecjoon, scribed for Erick Garcia MD on 08/30/17 at 0508 . Lower Extremity - HPI Summary HPI Summary: This patient is a 26 year old male presenting to [facility] with a chief complaint of foot pain s/p a mechanical fall a few hours ago. Patient states that he tripped in pavement, his right foot buckled, and he tumbled forward. The pain is rated 10/10 in severity. Symptoms aggravated by nothing. Symptoms alleviated by nothing - History of Current Complaint Chief Complaint: EDExtremityLower Stated Complaint: RIGHT FOOT INJURY Time Seen by Provider: 08/30/17 04:49 Hx Obtained From: Patient Mechanism Of Injury: Fall From A Standing Position, Twisted Onset of Pain: Immediate Onset/Duration: Still Present Severity Currently: Severe Pain Intensity: 10 Pain Scale Used: 0-10 Numeric Timing: Constant Location: Is Discrete @ - right foot Aggravating Factor(s): Nothing Alleviating Factor(s): Nothing - Allergies/Home Medications Allergies/Adverse Reactions: Allergies Allergy/AdvReac Type Severity Reaction Status Date / Time egg Allergy Rash And Verified 08/30/17 03:23 Itching gluten Allergy GI Upset Verified 08/30/17 05:01 milk Allergy Vomiting Verified 08/30/17 03:23 nut - unspecified Allergy Anaphylatic Verified 08/30/17 03:23 Shock BANANAS Allergy Severe Rash Uncoded 06/29/17 17:19 PMH/Surg Hx/FS Hx/Imm Hx Previously Healthy: No Endocrine/Hematology History: Denies: Hx Anticoagulant Therapy - asa 325mg daily, Hx Diabetes, Hx Thyroid Disease Cardiovascular History: Denies: Hx Hypertension, Hx Pacemaker/ICD Comment Only: 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 Respiratory History: Denies: Hx Chronic Obstructive Pulmonary Disease (COPD) Comment Only: Hx Asthma - SEASONAL ALLERGIES GI History: Denies: Hx Ulcer History: Reports: Hx Kidney Stones Comment Only: Other Problems/Disorders - intermittent pain in stomach - multiple food allergies Sensory History: Denies: Hx Contacts or Glasses, Hx Hearing Aid Opthamlomology History: Denies: Hx Contacts or Glasses Neurological History: Denies: Hx Seizures - Surgical History Surgery Procedure, Year, and Place: no prior surg - Immunization History Date of Tetanus Vaccine: utd Date of Influenza Vaccine: none Infectious Disease History: No Infectious Disease History: Denies: Hx Hepatitis, Hx Human Immunodeficiency Virus (HIV), Traveled Outside the [place] in Last 30 Days - Family History Known Family History: Positive: Hypertension, Diabetes - Social History Alcohol Use: Occasionally Hx Substance Use: No Substance Use Type: Reports: Marijuana Substance Use Comment - Amount & Last Used: rarely Hx Tobacco Use: Yes - FEW YEARS AGO Smoking Status (MU): Current Every Day Smoker Type: Cigarettes Amount Used/How Often: 1/2 PPD Review of Systems Negative: Fever Positive: Other - foot pain All Other Systems Reviewed And Are Negative: Yes Physical Exam - Summary Physical Exam Summary: VITAL SIGNS: Reviewed. GENERAL: Patient is a well-developed and nourished male who is lying comfortable in the stretcher. Patient is not in any acute respiratory distress. HEAD AND FACE: No signs of trauma. No ecchymosis, hematomas or skull depressions. No sinus tenderness. EYES: PERRLA, EOMI x 2, No injected conjunctiva, no nystagmus. EARS: Hearing grossly intact. Ear canals and tympanic membranes are within normal limits. MOUTH: Oropharynx within normal limits. NECK: Supple, trachea is midline, no adenopathy, no JVD, no carotid bruit, no c- spine tenderness, neck with full ROM. CHEST: Symmetric, no tenderness at palpation LUNGS: Clear to auscultation bilaterally. No wheezing or crackles. CVS: Regular rate and rhythm, S1 and S2 present, no murmurs or gallops appreciated. ABDOMEN: Soft, non-tender. No signs of distention. No rebound no guarding, and no masses palpated. Bowel sounds are normal. EXTREMITIES: Tenderness over lateral aspect of left foot NEURO: Alert and oriented x 3. No acute neurological deficits. Speech is normal and follows commands. SKIN: Dry and warm Triage Information Reviewed: Yes Vital Signs On Initial Exam: Initial Vitals Temp Pulse Resp BP Pulse Ox 98.1 F 93 16 132/91 99 08/30/17 03:21 08/30/17 03:21 08/30/17 03:21 08/30/17 03:21 08/30/17 03:21 Vital Signs Reviewed: Yes Diagnostics - Vital Signs Vital Signs Temp Pulse Resp BP Pulse Ox 08/30/17 03:21 98.1 F 93 16 132/91 99 - Laboratory Lab Statement: Any lab studies that have been ordered have been reviewed, and results considered in the medical decision making process. - Radiology Foot XR Xray Interpretation: Positive (See Comments) - Foot XR reveals, per radiologist , IMPRESSION: fracture of the base of the 5th metatarsal. ED physician has reviewed this radiology report. Radiology Interpretation Completed By: Radiologist Lower Extremity Course/Dx - Course Course Of Treatment: This patient is a 26 year old male presenting to [facility] with a chief complaint of foot pain s/p a mechanical fall a few hours ago. Patient states that he tripped in pavement, his right foot buckled, and he tumbled forward. Foot XR reveals, per radiologist, IMPRESSION: fracture of the base of the 5th metatarsal. ED physician has reviewed this radiology report. In the ED course the patient was given Toradol, Percocet. Patient will be discharged with diagnosis of Nickerson fracture and will be given pain medication and crutches for support. Patient is advised to follow up with Dr. Woo (Ortho ) in 3 days. The patient is agreeable with this plan. - Diagnoses Provider Diagnoses: Nickerson fracture Discharge - Discharge Plan Condition: Stable Disposition: HOME Patient Education Materials: Foot Fracture in Adults (ED) Referrals: No Primary Care Phys,NOPCP [Primary Care Provider] - Maulik Woo MD [Medical Doctor] - 3 Days [facility]Outside] - 3 Days Additional Instructions: Patient will be discharged with diagnosis of Nickerson fracture and will be given pain medication and crutches for support. Patient is advised to follow up with Dr. Woo (Ortho) in 3 days. The patient is agreeable with this plan. Return to the ED for new or worsening symptoms. The documentation as recorded by the Juan Alberto pardo Tecjoon accurately reflects the service I personally performed and the decisions made by , Erick Garcia MD.
--- NOTE | 2017-08-30 11:25 | RAD ---
Indication: RIGHT foot pain and edema. Preceding injury. Comparison: No relevant prior exams available on the [facility] [place] for [place]. Technique: AP, lateral, and oblique views RIGHT foot. REPORT AND IMPRESSION: Nondisplaced avulsion fracture at the tuberosity of the base of the fifth metatarsal. Overlying soft tissue swelling. Negative for additional fracture. Normal articular alignment.
== END 2017-08-30 05:42 | disposition home or self-care (01) ==
LOC: ED 03:18
DX: S92.351A Displaced fracture of fifth metatarsal bone, right foot, initial encounter for closed fracture (principal); M79.671 Pain in right foot; F17.210 Nicotine dependence, cigarettes, uncomplicated; W01.0XXA Fall on same level from slipping, tripping and stumbling without subsequent striking against object, initial encounter; Y92.9 Unspecified place or not applicable
CPT/HCPCS: 96372; 99282; A9270-GY; J1885

== ENCOUNTER 2017-10-02 17:06 | Emergency (ER) | payer SELFPAY ==
[2017-10-02 17:15] VITALS: BP 128/81
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
[2017-10-02] MEDS ORDERED: Tetan/Diph/Pertus SYR(Tdap)* 0.5 ML SYR(BOOSTRIX) use SYR IM ONE (17:32)
[2017-10-02] MEDS ORDERED: Ibuprofen TAB* 600 MG PO ONE (17:49)
[2017-10-02] MEDS ORDERED: Amoxicillin/Clavulanate TAB* 875 MG PO ONE (17:51)
[2017-10-02] MEDS ORDERED: Acetaminophen TAB* 325 MG PO ONE (17:53)
--- NOTE | 2017-10-02 18:00 | RAD ---
INDICATION: RIGHT hand second and third metacarpal and first and second finger pain as well as significant soft tissue swelling following injury last night. COMPARISON: No relevant prior exams available on the [facility] [place] for comparison. TECHNIQUE: AP, lateral, and oblique views RIGHT hand. REPORT AND IMPRESSION: Negative for fracture or articular malalignment. Soft tissue swelling most prominent over the dorsum of the hand at the level of the metacarpal phalangeal joints and at the second finger. No subcutaneous emphysema or conspicuous foreign body evident.
== END 2017-10-02 18:30 | disposition home or self-care (01) ==
LOC: UCEAST 17:06
DX: L03.113 Cellulitis of right upper limb (principal); S61.210A Laceration without foreign body of right index finger without damage to nail, initial encounter; Y04.0XXA Assault by unarmed brawl or fight, initial encounter; Y93.9 Activity, unspecified; Y92.9 Unspecified place or not applicable; Z23 Encounter for immunization; F17.210 Nicotine dependence, cigarettes, uncomplicated
CPT/HCPCS: 90715; 96372; 99212; A9270-GY; G0463

== ENCOUNTER 2018-01-31 22:00 | Emergency (ER) | payer SELFPAY ==
[2018-01-31] MEDS ORDERED: cefTRIAXone VIAL(*) 250 MG VIAL IM ONE (22:20)
[2018-01-31] MEDS ORDERED: Azithromycin TAB* 250 MG PO ONE (22:20)
--- NOTE | 2018-01-31 22:25 | ED ---
GI/ HPI - HPI Summary HPI Summary: Patient complains of exposure to gonorrhea. States he had unprotected sex with his male partner who was having symptoms at the time without telling him. Partner later tested positive for gonorrhea and informed the patient today. Patient denies any active symptoms. - History of Current Complaint Chief Complaint: EDExposureBodyFluid Time Seen by Provider: 01/31/18 22:12 Stated Complaint: GENERAL ILLNESS Hx Obtained From: Patient Current Severity: None Pain Intensity: 0 - Allergy/Home Medications Allergies/Adverse Reactions: Allergies Allergy/AdvReac Type Severity Reaction Status Date / Time egg Allergy Rash And Verified 10/02/17 17:09 Itching gluten Allergy GI Upset Verified 10/02/17 17:09 milk Allergy Vomiting Verified 10/02/17 17:09 nut - unspecified Allergy Anaphylatic Verified 10/02/17 17:09 Shock BANANAS Allergy Severe Rash Uncoded 06/29/17 17:19 PMH/Surg Hx/FS Hx/Imm Hx Endocrine/Hematology History: Denies: Hx Anticoagulant Therapy - asa 325mg daily, Hx Diabetes, Hx Thyroid Disease Cardiovascular History: Denies: Hx Hypertension, Hx Pacemaker/ICD Comment Only: 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 Respiratory History: Denies: Hx Chronic Obstructive Pulmonary Disease (COPD) Comment Only: Hx Asthma - SEASONAL ALLERGIES GI History: Denies: Hx Ulcer History: Reports: Hx Kidney Stones Comment Only: Other Problems/Disorders - intermittent pain in stomach - multiple food allergies Sensory History: Denies: Hx Contacts or Glasses, Hx Hearing Aid Opthamlomology History: Denies: Hx Contacts or Glasses Neurological History: Denies: Hx Seizures - Surgical History Surgery Procedure, Year, and Place: no prior surg - Immunization History Date of Tetanus Vaccine: utd Date of Influenza Vaccine: none Infectious Disease History: No Infectious Disease History: Denies: Hx Hepatitis, Hx Human Immunodeficiency Virus (HIV), Traveled Outside the [place] in Last 30 Days - Family History Known Family History: Positive: Hypertension, Diabetes - Social History Alcohol Use: Occasionally Hx Substance Use: No Substance Use Type: Reports: Marijuana Substance Use Comment - Amount & Last Used: rarely Hx Tobacco Use: Yes - FEW YEARS AGO Smoking Status (MU): Current Every Day Smoker Type: Cigarettes Amount Used/How Often: 1/2 PPD Review of Systems Constitutional: Negative Eyes: Negative ENT: Negative Cardiovascular: Negative Respiratory: Negative Gastrointestinal: Negative Genitourinary: Negative Musculoskeletal: Negative Skin: Negative Neurological: Negative Psychological: Normal All Other Systems Reviewed And Are Negative: Yes Physical Exam Triage Information Reviewed: Yes Vital Signs On Initial Exam: Initial Vitals Temp Pulse Resp BP Pulse Ox 98.3 F 103 22 134/93 97 01/31/18 22:02 01/31/18 22:02 01/31/18 22:02 01/31/18 22:02 01/31/18 22:02 Vital Signs Reviewed: Yes Appearance: Positive: Well-Appearing Skin: Positive: Warm Head/Face: Positive: Normal Head/Face Inspection Eyes: Positive: Normal Neck: Positive: Supple Respiratory/Lung Sounds: Positive: Clear to Auscultation Cardiovascular: Positive: Normal Abdomen Description: Positive: Nontender Musculoskeletal: Positive: Normal Neurological: Positive: Normal Psychiatric: Positive: Normal AVPU Assessment: Alert - Davin Coma Scale Best Eye Response: 4 - Spontaneous Best Motor Response: 6 - Obeys Commands Best Verbal Response: 5 - Oriented Coma Scale Total: 15 Diagnostics - Vital Signs Vital Signs Temp Pulse Resp BP Pulse Ox 01/31/18 22:02 98.3 F 103 22 134/93 97 - Laboratory Lab Statement: Any lab studies that have been ordered have been reviewed, and results considered in the medical decision making process. GIGU Course/Dx - Course Course Of Treatment: Patient complains of exposure to gonorrhea. States he had unprotected sex with his male partner who was having symptoms at the time without telling him. Partner later tested positive for gonorrhea and informed the patient today. Patient denies any active symptoms. Azithromycin 1 g by mouth, Rocephin 250 mg IV, here in the ED. GC chlamydia test by urine. Patient will be called with results if positive. - Diagnoses Provider Diagnoses: Exposure to gonorrhea Discharge - Sign-Out/Discharge Documenting (check all that apply): Patient Departure - Discharge Plan Condition: Stable Disposition: HOME Patient Education Materials: Gonorrhea (ED) Referrals: No Primary Care Phys,NOPCP [Primary Care Provider] - Additional Instructions: Inform all sexual partners that they need to be treated for exposure to gonorrhea. Return to the ED for any new or worsening symptoms - Billing Disposition and Condition Condition: STABLE Disposition: Home
[2018-01-31 22:58] VITALS: BP 145/90
== END 2018-01-31 22:54 | disposition home or self-care (01) ==
LOC: ED 22:00
DX: Z20.2 Contact with and (suspected) exposure to infections with a predominantly sexual mode of transmission (principal); J45.909 Unspecified asthma, uncomplicated; Z87.442 Personal history of urinary calculi; Z91.012 Allergy to eggs; Z91.011 Allergy to milk products; Z91.018 Allergy to other foods; Z82.49 Family history of ischemic heart disease and other diseases of the circulatory system; Z83.3 Family history of diabetes mellitus; F17.210 Nicotine dependence, cigarettes, uncomplicated
CPT/HCPCS: 96372; 99282; A9270-GY; J0696

== ENCOUNTER 2018-02-14 18:37 | Emergency (ER) | payer SELFPAY ==
[2018-02-14 19:56] LABS: Urine Appearance Cloudy; Urine Blood 3+ (Negative); Urine Color Yellow; Urine Ketones Negative (Negative); Urine Protein 1+(30 mg/dL) (Negative); Urine Red Blood Cell 3+(>10/hpf) (Absent); Urine Specific Gravity 1.023 (1.010-1.030); Urine Urobilinogen Negative (Negative); Urine White Blood Cell Trace(0-5/hpf) (Absent)
[2018-02-14] MEDS ORDERED: NS 0.9% 1000 ML* 1,000 ML IV ONE (20:20)
[2018-02-14] MEDS ORDERED: Ketorolac INJ* 30 MG/ML 1 ML VIAL IV PUSH ONE (20:22)
[2018-02-14] MEDS ORDERED: Ketorolac INJ* 30 MG/ML 1 ML VIAL ONE (20:23)
--- NOTE | 2018-02-14 20:24 | ED ---
Abdominal Pain/Male - HPI Summary HPI Summary: This is edvin Regalado documenting for Dr. Braden Cohen MD. Pt is a 27 y/o M who presents to ED c/o constant left-sided abdominal pain. Pain began yesterday but he thought it was resolved. Woke up today and the pain was much worse. Rates pain as 10/10 in severity at triage. Notes dysuria, frequency, testicular pain, and penile pain. PMHx of nephrolithiasis 4 months ago that he was able to pass. - History of Current Complaint Chief Complaint: EDAbdPain Stated Complaint: LT SIDE ABD PAIN/NAUSEOUS Time Seen by Provider: 02/14/18 20:13 Hx Obtained From: Patient Onset/Duration: Lasting Hours, Still Present Timing: Constant, Lasting Hours Severity Currently: Severe Pain Intensity: 10 Pain Scale Used: 0-10 Numeric Location: Discrete At: LLQ Associated Signs And Symptoms: Positive: Urinary Symptoms - dysuria and frequency, Other - testicular pain and penile pain - Allergies/Home Medications Allergies/Adverse Reactions: Allergies Allergy/AdvReac Type Severity Reaction Status Date / Time egg Allergy Rash And Verified 02/14/18 20:20 Itching gluten Allergy GI Upset Verified 02/14/18 20:20 milk Allergy Vomiting Verified 02/14/18 20:20 nut - unspecified Allergy Anaphylatic Verified 02/14/18 20:20 Shock BANANAS Allergy Severe Rash Uncoded 02/14/18 20:20 PMH/Surg Hx/FS Hx/Imm Hx Endocrine/Hematology History: Denies: Hx Anticoagulant Therapy - asa 325mg daily, Hx Diabetes, Hx Thyroid Disease Cardiovascular History: Denies: Hx Hypertension, Hx Pacemaker/ICD Comment Only: 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 Respiratory History: Denies: Hx Chronic Obstructive Pulmonary Disease (COPD) Comment Only: Hx Asthma - SEASONAL ALLERGIES GI History: Denies: Hx Ulcer History: Reports: Hx Kidney Stones Comment Only: Other Problems/Disorders - intermittent pain in stomach - multiple food allergies Sensory History: Denies: Hx Contacts or Glasses Opthamlomology History: Denies: Hx Contacts or Glasses Neurological History: Denies: Hx Seizures - Surgical History Surgery Procedure, Year, and Place: no prior surg - Immunization History Date of Tetanus Vaccine: utd Date of Influenza Vaccine: none Infectious Disease History: No Infectious Disease History: Denies: Hx Hepatitis, Hx Human Immunodeficiency Virus (HIV), Traveled Outside the [place] in Last 30 Days - Family History Known Family History: Positive: Hypertension, Diabetes - Social History Alcohol Use: Occasionally Hx Substance Use: No Substance Use Type: Reports: Marijuana Substance Use Comment - Amount & Last Used: rarely Hx Tobacco Use: Yes - FEW YEARS AGO Smoking Status (MU): Current Every Day Smoker Type: Cigarettes Amount Used/How Often: 1/2 PPD Review of Systems Positive: Abdominal Pain Positive: dysuria, frequency, other - testicular pain, penile pain All Other Systems Reviewed And Are Negative: Yes Physical Exam - Summary Physical Exam Summary: Appearance: Well appearing, no pain distress Skin: warm, dry, reflects adequate perfusion Head/face: normal Eyes: EOMI, NANNETTE ENT: normal Neck: supple, non-tender Respiratory: CTA, breath sounds present Cardiovascular: RRR, pulses symmetrical Abdomen: mild tenderness in LLQ and scrotum, soft Bowel: present Musculoskeletal: normal, strength/ROM intact Neuro: normal, sensory motor intact, A&Ox3 Triage Information Reviewed: Yes Vital Signs On Initial Exam: Initial Vitals Temp Pulse Resp BP Pulse Ox 97.3 F 81 18 142/85 100 02/14/18 18:45 02/14/18 18:45 02/14/18 18:45 02/14/18 18:45 02/14/18 18:45 Vital Signs Reviewed: Yes Diagnostics - Vital Signs Vital Signs Temp Pulse Resp BP Pulse Ox 02/14/18 18:45 97.3 F 81 18 142/85 100 - Laboratory Lab Results: Lab Results 02/14/18 Range/Units 19:42 Urine Color Yellow Urine Appearance Cloudy Urine pH 6.0 (5-9) Ur Specific Imperial 1.023 (1.010-1.030) Urine Protein 1+(30 mg/dl) A (Negative) Urine Ketones Negative (Negative) Urine Blood 3+ A (Negative) Urine Nitrate Negative (Negative) Urine Bilirubin Negative (Negative) Urine Urobilinogen Negative (Negative) Ur Leukocyte Esterase Trace A (Negative) Urine WBC (Auto) Trace(0-5/hpf) (Absent) Urine RBC (Auto) 3+(>10/hpf) A (Absent) Urine Bacteria Absent (Absent) Urine Glucose Negative (Negative) Result Diagrams: 02/14/18 20:19 02/14/18 20:19 Lab Statement: Any lab studies that have been ordered have been reviewed, and results considered in the medical decision making process. - CT CT Abd/Pel CT Interpretation Completed By: ED Physician - Negative. - Ultrasound No standard instances Ultrasound Interpretation Completed By: ED Physician - US Scrotum was negative. Abdominal Pain Fem Course/Dx - Course Course Of Treatment: Pt is a 27 y/o M who presents to ED c/o constant left- sided abdominal pain. Notes dysuria, frequency, testicular pain, and penile pain. PMHx of nephrolithiasis 4 months ago that he was able to pass. In ED course pt was given morphine, fluids, and Toradol. CT Abd/Pel was negative. US Scrotum was negative. Pt was diagnosed with flank pain and discharged home. - Diagnoses Differential Diagnosis/HQI/PQRI: Diverticulitis, Pancreatitis, Renal Colic, Urinary Tract Infection Provider Diagnoses: Flank pain Discharge - Sign-Out/Discharge Documenting (check all that apply): Patient Departure - Discharge - Discharge Plan Condition: Stable Disposition: HOME Prescriptions: Diclofenac Sodium EC TAB* [Voltaren EC TAB*] 50 mg PO TID PRN #15 tab.ec MDD 3 PRN Reason: Pain Patient Education Materials: Flank Pain (ED) Referrals: [facility] – [place] [facility] [Outside] - 3 Days Additional Instructions: RETURN TO ED FOR ANY NEW OR WORSENING SYMPTOMS. - Billing Disposition and Condition Condition: STABLE Disposition: Home
[2018-02-14 20:43] LABS: ABS Basophils 0.1 10^3/ul (0-0.2); ABS Eosinophils 0.2 10^3/ul (0-0.6); ABS Lymphocytes 2.4 10^3/ul (1.0-4.8); ABS Monocytes 0.6 10^3/ul (0-0.8); ABS Neutrophils 3.5 10^3/ul (1.5-7.7); ABS Nucleated RBC 0 10^3/ul; Eosinophil % 2.8 % (0-6); Hematocrit 45 % (42-52); Hemoglobin 14.9 g/dl (14.0-18.0); Lymphocyte % 35.6 % (25-47); Mean Corpuscular HGB Conc 33 g/dl (31-36); Mean Corpuscular Hemoglobin 29 pg (27-31); Mean Corpuscular Volume 88 fL (80-94); Mean Platelet Volume 8.9 um3 (7.4-10.4); Nucleated Red Blood Cells % 0.3; Platelet Count 176 10^3/ul (150-450); Red Cell Distribution Width 14 % (10.5-15); White Blood Count 6.8 10^3/ul (3.5-10.8)
[2018-02-14 21:05] LABS: EGFR Non-African American 89.4 (>60)
[2018-02-14] MEDS ORDERED: Morphine VIAL* 4 MG/ML VIAL (1 ml vial) IV ONE (22:21)
[2018-02-14] MEDS ORDERED: Morphine INJ* 2 MG/ML 1 ML SYRINGE (TWO MG - NEW SYRINGE VERSION) ONE (22:36)
[2018-02-14 23:28] VITALS: BP 111/73
--- NOTE | 2018-02-15 07:32 | RAD ---
INDICATION: Abdominal pain, possible kidney stone left side. COMPARISON: Comparison is made with a prior CT of the abdomen and pelvis from June 29, 2017. TECHNIQUE: A CT scan of the abdomen and pelvis was performed without intravenous and without oral contrast. Contiguous axial sections were obtained from the lung bases through the symphysis pubis. Images were reconstructed in the coronal and sagittal planes. FINDINGS: The lung bases are clear. No pleural effusion is present. There is dextrocardia. There is situs inversus. The liver and spleen are normal and size. There are multiple small fluid density hepatic lesions which are too small to characterize by CT although appear similar to the prior study and likely represent cysts or hemangiomas. No calcified gallstones are seen. No pancreatic ductal distention or calcifications are seen. The adrenal glands and kidneys are normal in size. No renal, ureteral or bladder calculi are seen. There is no evidence for necrosis. The aorta is normal in caliber without significant calcific plaque. No significant enlarged retroperitoneal lymph nodes are seen. The stomach, small and large bowel appear nondistended. The appendix is within normal limits. There are few scattered diverticuli. There is no evidence for diverticulitis or colitis. No free intraperitoneal air or fluid is seen. No significant focal osseous abnormality is seen. IMPRESSION: 1. NO EVIDENCE FOR ACUTE FINDING OR CAUSE FOR THE PATIENT'S ABDOMINAL PAIN. 2. SITUS INVERSUS AND DEXTROCARDIA. R0
--- NOTE | 2018-02-15 08:02 | RAD ---
INDICATION: Left flank and testicle pain COMPARISON: None TECHNIQUE: Duplex interrogation of the scrotum was performed. FINDINGS: The testicles are normal in size and echogenicity. There is no evidence for testicular mass. The right testis measures 3.7 x 2.1 x 2.9 cm and the left 3.8 x 2.3 x 3.0 cm. There is symmetric flow on Doppler interrogation. Arterial and venous waveforms are identified bilaterally. The epididymides appear normal. The right epididymal head measures 0.8 x 0.9 cm and the left 1.0 x 1.1 cm. There are very small hydroceles bilaterally, slightly larger on the left than the right. There are no varicoceles. IMPRESSION: Very small bilateral hydroceles, slightly larger on the left than the right, in this otherwise normal sonographic examination of the scrotum.
== END 2018-02-14 23:33 | disposition home or self-care (01) ==
LOC: ED 18:37
DX: R10.32 Left lower quadrant pain (principal); R30.0 Dysuria; R35.0 Frequency of micturition; N50.812 Left testicular pain; N48.89 Other specified disorders of penis; N43.3 Hydrocele, unspecified; Z79.82 Long term (current) use of aspirin; Z91.012 Allergy to eggs; Z91.011 Allergy to milk products; Z91.018 Allergy to other foods; Z82.49 Family history of ischemic heart disease and other diseases of the circulatory system; Z83.3 Family history of diabetes mellitus; F17.210 Nicotine dependence, cigarettes, uncomplicated
CPT/HCPCS: 36415; 74176; 76870; 80053; 81003; 81015; 83605; 83690; 85025; 86140; 87086; 96361; 96374; 96375; 99283; J1885; J2270

== ENCOUNTER 2018-04-15 11:36 | Emergency (ER) | payer SELFPAY ==
[2018-04-15 11:49] VITALS: BP 140/85
--- NOTE | 2018-04-15 11:54 | ED ---
Skin Complaint - HPI Summary HPI Summary: 27 y/o male presents to the urgent care c/o rash and itchiness in the back, abdomen and arms s/p hep B vaccines placed at work about 1 hrs ago today. Pt states he was given Benadryl PO 50 mg by the nurse immediately at work. He states he has multiple food allergies. Pt denies SOB, throat tightening, diffiulty breathing, chest pain, abdominal pain, N/V/D. - History of Current Complaint Chief Complaint: UCAllergicReaction Time Seen by Provider: 04/15/18 11:53 Stated Complaint: ALLERGIC REACTION ITCHY DIZZY Hx Obtained From: Patient Onset/Duration: Started Hours Ago - 1 hrs ago, Still Present Skin Exposure Onset/Duration: Hours Ago - 1 hrs Timing: Constant Onset Severity: Mild Current Severity: Mild Pain Intensity: 0 Pain Scale Used: 0-10 Numeric Skin Location: Diffuse, Other: Character: Pruritus - Allergy/Home Medications Allergies/Adverse Reactions: Allergies Allergy/AdvReac Type Severity Reaction Status Date / Time egg Allergy Rash And Verified 04/18/18 15:40 Itching gluten Allergy GI Upset Verified 04/18/18 15:40 milk Allergy Vomiting Verified 04/18/18 15:40 nut - unspecified Allergy Anaphylatic Verified 04/18/18 15:40 Shock BANANAS Allergy Severe Rash Uncoded 04/15/18 11:49 PMH/Surg Hx/FS Hx/Imm Hx Previously Healthy: Yes Endocrine/Hematology History: Denies: Hx Anticoagulant Therapy - asa 325mg daily, Hx Diabetes, Hx Thyroid Disease Cardiovascular History: Reports: Hx Atrial Fibrillation - 2 years ago Denies: Hx Hypertension, Hx Pacemaker/ICD Comment Only: 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 Respiratory History: Denies: Hx Chronic Obstructive Pulmonary Disease (COPD) Comment Only: Hx Asthma - SEASONAL ALLERGIES GI History: Denies: Hx Ulcer History: Reports: Hx Kidney Stones Comment Only: Other Problems/Disorders - intermittent pain in stomach - multiple food allergies Sensory History: Denies: Hx Contacts or Glasses Opthamlomology History: Denies: Hx Contacts or Glasses Neurological History: Denies: Hx Seizures - Surgical History Surgery Procedure, Year, and Place: no prior surg - Immunization History Date of Tetanus Vaccine: utd Date of Influenza Vaccine: none Infectious Disease History: No Infectious Disease History: Denies: Hx Hepatitis, Hx Human Immunodeficiency Virus (HIV), Traveled Outside the [place] in Last 30 Days - Family History Known Family History: Positive: Hypertension, Diabetes - Social History Occupation: Employed Full-time Lives: With Family Alcohol Use: Occasionally Hx Substance Use: No Substance Use Type: Reports: None Substance Use Comment - Amount & Last Used: rarely Hx Tobacco Use: Yes - FEW YEARS AGO Smoking Status (MU): Light Every Day Tobacco Smoker Type: Cigarettes Amount Used/How Often: 1/2 PPD Review of Systems Constitutional: Negative Negative: Skin Diaphoresis Eyes: Negative ENT: Negative Cardiovascular: Negative Respiratory: Negative Gastrointestinal: Negative Genitourinary: Negative Musculoskeletal: Negative Positive: Rash - chest, back and B/L upper arms hives w/ a lot of ithciness Neurological: Negative Psychological: Normal All Other Systems Reviewed And Are Negative: Yes Physical Exam - Summary Physical Exam Summary: Vital Signs Reviewed: Yes General: well developed, well nourished male sitting in the examining table w/o any apparent distress. Eyes: Positive: Conjunctiva Clear - PERRLA, EOMI ENT: Positive: Normal ENT inspection, Hearing grossly normal, Pharynx normal, TMs normal Neck: Positive: Supple, Nontender, No Lymphadenopathy Respiratory: Positive: Chest nontender, Lungs clear, Normal breath sounds Cardiovascular: Positive: RRR, No Murmur, Pulses Normal Abdomen Description: Positive: Nontender, No Organomegaly, Soft. Negative: CVA Tenderness (R), CVA Tenderness (L) Bowel Sounds: Positive: Present Musculoskeletal: Positive: Strength Intact, ROM Intact, No Edema Neurological Exam: Normal Psychological Exam: Normal Skin: Positive: rashes back , chest and B/L upper arms w/ scattered erythematous patches w/ mild signs of excoriation, no drainage observed, non tender to palpation. Triage Information Reviewed: Yes Vital Signs On Initial Exam: Initial Vitals Temp Pulse Resp BP Pulse Ox 98.3 F 91 16 140/85 100 04/15/18 11:45 04/15/18 11:45 04/15/18 11:45 04/15/18 11:45 04/15/18 11:45 Diagnostics - Vital Signs Vital Signs Temp Pulse Resp BP Pulse Ox 04/15/18 11:45 98.3 F 91 16 140/85 100 - Laboratory Lab Statement: Any lab studies that have been ordered have been reviewed, and results considered in the medical decision making process. Course/Dx - Course Course Of Treatment: 27 y/o male presents to the urgent care c/o rash and itchiness in the back, abdomen and arms s/p hep B vaccines placed at work about 1 hrs ago today. Pt states he was given Benadryl PO 50 mg by the nurse immediately at work. He states he has multiple food allergies. Pt denies SOB, throat tightening, diffiulty breathing, chest pain, abdominal pain, N/V/D.Hx obtained. Pt w/ an allergic reaction on examination. Pt is allergic to eggs which can be a component in the vaccine. Pt is Hemodynamically stable, O2Sat:100 % and scattered hives on back, chest and B/L upper arms. Pt Given Methylprednisolone IM inj by nurse. Pt tolerated well IM inj. Pt RX Prednisone PO taper dose, and advised to continue w/ Benadryl PO to alleviate symptoms. Your BP is elevated today. please decrease salt in your diet, monitor BP and if it continues to be elevated please f/u with your PCP for further management. D/ C instructions explained. Pt understood and agreed w/ plan of care and left the clinic ambulating and hemodynamically stable. - Differential Diagnoses - Skin Complaint Differential Diagnoses: Allergic Reaction, Anaphylaxis, Angioedema, Contact Dermatitis, Drug Rash, Local Allergic Reaction - Diagnoses Provider Diagnoses: Allergic reaction, Elevated BP without diagnosis of hypertension Discharge - Sign-Out/Discharge Documenting (check all that apply): Patient Departure - D/c home All imaging exams completed and their final reports reviewed: No Studies - Discharge Plan Condition: Stable Disposition: HOME Prescriptions: predniSONE TAB* [Deltasone 20 MG TAB*] 20 mg PO DAILY #11 tab Patient Education Materials: Low-Sodium Diet (ED), General Allergic Reaction ( ED) Referrals: [facility] – [place] [facility] REFERRAL [Outside] - If Needed Additional Instructions: 1-Please Start taking Prednisone PO taper dose starting tomorrow. first loading dose given today at the clinic. 2- Continue taking Benadryl PO to alleviate itchiness. Apply topical cream as directed. Avoid exposure to the sun. 3-If symptoms do not improve or worsen please f/u with your PCP in 2-3 days for further evaluation and treatment. 4- If symptoms worsen and you develop SOB or difficulty breathing please go immediately to the ER for further management. 5-Your BP is elevated today. please decrease salt in your diet, monitor BP and if it continues to be elevated please f/u with your PCP for further management - Billing Disposition and Condition Condition: STABLE Disposition: Home - Attestation Statements Provider Attestation: I was available for consult. This patient was seen by the CATHY. The patient was not presented to, seen by, or examined by me. -Felicita
[2018-04-15] MEDS ORDERED: methylPREDNISolone 125 MG* 2 ML VIAL IM ONE (12:00)
== END 2018-04-15 12:58 | disposition home or self-care (01) ==
LOC: UCEAST 11:36
DX: T80.62XA Other serum reaction due to vaccination, initial encounter (principal); T50.Z95A Adverse effect of other vaccines and biological substances, initial encounter; Y92.9 Unspecified place or not applicable; R03.0 Elevated blood-pressure reading, without diagnosis of hypertension; F17.210 Nicotine dependence, cigarettes, uncomplicated
CPT/HCPCS: 96372; 99212; G0463; J2930

== ENCOUNTER 2018-04-18 15:12 | Emergency (ER) | payer SELFPAY ==
--- NOTE | 2018-04-18 16:10 | ED ---
GI/ HPI - HPI Summary HPI Summary: This patient is a 27 year old M presenting to [facility] with a chief complaint of L testicular pain that began [employer]ST. The patient rates the pain 8/10 in severity. Symptoms aggravated by urinating. Symptoms alleviated by nothing. Patient reports dizziness, dysuria, hesitance to urinate, CP (resolved), and nausea. Patient denies penile discharge and increased urinary urgency. Patient states it has been four weeks since he was last sexually active. Patient states he had an allergic reaction to a hepatitis B vaccine on 04/16/2018 and experienced throat tightness. - History of Current Complaint Chief Complaint: EDChestPainROMI Stated Complaint: GENERAL ILLNESS Hx Obtained From: Patient Onset/Duration: Started Hours Ago, Still Present Timing: Constant Severity: Severe Current Severity: Severe Pain Intensity: 8 Additional Locations for Males: Testicles Associated Signs and Symptoms: Positive: Other: - Positive dizziness, dysuria, hesitance to urinate, CP (resolved), and nausea. Negative penile discharge and increased urinary urgency Aggravating Factor(s): Urination Alleviating Factor(s): Nothing - Allergy/Home Medications Allergies/Adverse Reactions: Allergies Allergy/AdvReac Type Severity Reaction Status Date / Time egg Allergy Rash And Verified 04/18/18 15:40 Itching gluten Allergy GI Upset Verified 04/18/18 15:40 milk Allergy Vomiting Verified 04/18/18 15:40 nut - unspecified Allergy Anaphylatic Verified 04/18/18 15:40 Shock BANANAS Allergy Severe Rash Uncoded 04/15/18 11:49 PMH/Surg Hx/FS Hx/Imm Hx Previously Healthy: No Endocrine/Hematology History: Denies: Hx Anticoagulant Therapy - asa 325mg daily, Hx Diabetes, Hx Thyroid Disease Cardiovascular History: Reports: Hx Atrial Fibrillation Denies: Hx Hypertension, Hx Pacemaker/ICD Comment Only: 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 Respiratory History: Denies: Hx Chronic Obstructive Pulmonary Disease (COPD) Comment Only: Hx Asthma - SEASONAL ALLERGIES GI History: Denies: Hx Ulcer History: Reports: Hx Kidney Stones Comment Only: Other Problems/Disorders - intermittent pain in stomach - multiple food allergies Sensory History: Denies: Hx Contacts or Glasses Opthamlomology History: Denies: Hx Contacts or Glasses Neurological History: Denies: Hx Seizures - Surgical History Surgery Procedure, Year, and Place: no prior surg - Immunization History Date of Tetanus Vaccine: utd Date of Influenza Vaccine: none Infectious Disease History: No Infectious Disease History: Denies: Hx Hepatitis, Hx Human Immunodeficiency Virus (HIV), Traveled Outside the [place] in Last 30 Days - Family History Known Family History: Positive: Hypertension, Diabetes - Social History Occupation: Employed Full-time Lives: Alone Alcohol Use: Occasionally Hx Substance Use: No Substance Use Type: Reports: None Substance Use Comment - Amount & Last Used: rarely Hx Tobacco Use: Yes - FEW YEARS AGO Smoking Status (MU): Light Every Day Tobacco Smoker Type: Cigarettes Amount Used/How Often: 1/2 PPD Review of Systems Positive: Chest Pain Positive: Nausea Genitourinary: Other - Positive testicular pain and hestiance to urinate Positive: dysuria. Negative: discharge, urgency Neurological: Other - Positive dizziness All Other Systems Reviewed And Are Negative: Yes Physical Exam - Summary Physical Exam Summary: VITAL SIGNS: Reviewed. GENERAL: Patient is a well-developed and nourished male who is lying comfortable in the stretcher. Patient is not in any acute respiratory distress. HEAD AND FACE: Normocephalic and atraumatic. EYES: PERRLA, EOMI x 2, No injected conjunctiva. EARS: Hearing grossly intact. Ear canals and tympanic membranes are WNL. MOUTH: Oropharynx within normal limits. NECK: Supple, trachea is midline, no adenopathy, no JVD. CHEST: Symmetric, no tenderness at palpation LUNGS: Clear to auscultation bilaterally. No wheezing or crackles. CVS: RRR, S1 and S2 present, no murmurs or gallops appreciated. ABDOMEN: Soft, non-tender. No signs of distention. Positive bowel sounds. No rebound no guarding, and no masses palpated. No abdominal bruit or pulsations. : Circumcised penis, both testicles are descended. No masses are appreciated. Positive cremasteric reflex. EXTREMITIES: FROM in all major joints, no edema, no cyanosis or clubbing. NEURO: Alert and oriented x 3. No acute neurological deficits. Speech is normal. SKIN: Dry and warm Triage Information Reviewed: Yes Vital Signs On Initial Exam: Initial Vitals Temp Pulse Resp BP Pulse Ox 98.2 F 88 16 127/92 100 04/18/18 15:33 04/18/18 15:33 04/18/18 15:33 04/18/18 15:33 04/18/18 15:33 Vital Signs Reviewed: Yes Diagnostics - Vital Signs Vital Signs Temp Pulse Resp BP Pulse Ox 04/18/18 15:33 98.2 F 88 16 127/92 100 - Laboratory Result Diagrams: 04/18/18 16:24 04/18/18 16:24 Lab Statement: Any lab studies that have been ordered have been reviewed, and results considered in the medical decision making process. - EKG 1553 Cardiac Rate: NL EKG Rhythm: Sinus Rhythm - 76 BPM EKG Interpretation: Dextrocardia EKG Comparison: No Significant Change - Since 04/24/2017 - Additional Comments Diagnostic Additional Comments: Testicular US reveals, per radiologist, 1. No testicular parenchymal mass. 2. No sonographic features of torsion. Please note that partial or intermittent torsion may be sonographically normal. 3. Small bilateral hydroceles. ED physician has reviewed this radiology report. GIGU Course/Dx - Course Assessment/Plan: This patient is a 27 year old M presenting to [facility] with a chief complaint of L testicular pain that began [employer]ST. The patient rates the pain 8/10 in severity. Symptoms aggravated by urinating. Symptoms alleviated by nothing. Patient reports dizziness, dysuria, hesitancy to urinate, CP (resolved) , and nausea. Patient denies penile discharge and increased urinary urgency. Patient states it has been four weeks since he was last sexually active. Patient states he had an allergic reaction to a hepatitis B vaccine on 2017 and experienced throat tightness. Blood test results without any significant abnormality. Urinalysis is negative for UTI. told testicular ultrasound impression: No testicular parenchymal mass. No sonographic features of torsion. Small bilateral hydroceles. Since all the test results are negative, ultrasound is negative I believe that the patient can be discharged home with follow-up with primary care physician. The patient reports that he was tested for GC and chlamydia about a week and half ago was negative. Patient also reports that he has not been sexually active for months. Patient will follow-up with GC and chlamydia test results from today with the primary care physician. In the ED course the patient was given Toradol for the pain and his symptoms improved. I discussed all the findings and test results with the patient. Patient was instructed to return to the emergency room immediately if any of the symptoms return or worsens. Plan of care was discussed with the patient and understands and agrees. All questions were answered at patient satisfaction. There were no further complaints or concerns. Lung exam before discharge: CTA B/L. Good air exchange. No wheezing or crackles heard. CVS: S1 and S2 present. No murmurs appreciated. Patient is alert and oriented x 3. Patient is hemodynamically stable. Patient will be discharged home with follow up PCP in the next 2-3 days - Diagnoses Provider Diagnoses: Testicular pain Discharge - Sign-Out/Discharge Documenting (check all that apply): Patient Departure - Discharge home - Discharge Plan Condition: Stable Disposition: HOME Prescriptions: Naproxen [Naproxen 500 mg tab] 500 mg PO BID #20 tablet Patient Education Materials: Testicle Pain (ED) Referrals: [facility] – [place] [facility] [place] [Outside] - 2 Days Additional Instructions: RETURN TO THE EMERGENCY DEPARTMENT FOR NEW OR WORSENING SYMPTOMS - Billing Disposition and Condition Condition: STABLE Disposition: Home - Attestation Statements Document Initiated by Scribe: Yes Documenting Scribe: Ofe Garcia Provider For Whom Scribe is Documenting (Include Credential): Thien Ngo MD Scribe Attestation: Ofe Medrano, scribed for Thien Ngo MD on 04/20/18 at 1842. Scribe Documentation Reviewed: Yes Provider Attestation: The documentation as recorded by the Ofe pardo accurately reflects the service I personally performed and the decisions made by Thien monroy MD
[2018-04-18 16:35] LABS: ABS Basophils 0.1 10^3/ul (0-0.2); ABS Eosinophils 0.3 10^3/ul (0-0.6); ABS Lymphocytes 3.7 10^3/ul (1.0-4.8); ABS Monocytes 1.4 10^3/ul (0-0.8); ABS Neutrophils 5.1 10^3/ul (1.5-7.7); ABS Nucleated RBC 0 10^3/ul; Eosinophil % 2.7 % (0-6); Hematocrit 40 % (42-52); Hemoglobin 13.2 g/dl (14.0-18.0); Lymphocyte % 35.2 % (25-47); Mean Corpuscular HGB Conc 33 g/dl (31-36); Mean Corpuscular Hemoglobin 29 pg (27-31); Mean Corpuscular Volume 86 fL (80-94); Nucleated Red Blood Cells % 0.1; Platelet Count 170 10^3/ul (150-450); Red Blood Count 4.62 10^6/ul (4.00-5.40); Red Cell Distribution Width 13 % (10.5-15); White Blood Count 10.6 10^3/ul (3.5-10.8)
[2018-04-18 16:37] LABS: Urine Appearance Cloudy; Urine Blood Negative (Negative); Urine Color Yellow; Urine Ketones Negative (Negative); Urine Protein Negative (Negative); Urine Specific Gravity 1.017 (1.010-1.030); Urine Urobilinogen Negative (Negative)
--- NOTE | 2018-04-18 16:50 | RAD ---
HISTORY: Testicular pain COMPARISONS: None TECHNIQUE: Multiple transverse and longitudinal ultrasound images were obtained of the scrotum, using grayscale, color Doppler, and spectral Doppler imaging. FINDINGS: RIGHT: RIGHT TESTICLE: The right testicle measures 3.5 x 2.2 x 2.7 cm. The right testicle is homogeneous in echotexture, without testicular parenchymal mass. Normal arterial and venous waveforms are identified within the right testicle on spectral Doppler imaging. RIGHT EPIDIDYMIS: The right epididymis measures 1.0 cm at the head. RIGHT SCROTUM: There is a small right hydrocele. There is no varicocele. LEFT: LEFT TESTICLE: The left testicle measures 3.7 x 2.3 x 2.9 cm. The left testicle is homogeneous in echotexture, without testicular parenchymal mass. Normal arterial and venous waveforms are identified within the left testicle on spectral Doppler imaging. LEFT EPIDIDYMIS: The left epididymis measures 1 cm at the head. LEFT SCROTUM: There is a small left hydrocele. There is no varicocele. OTHER: None IMPRESSION: 1. NO TESTICULAR PARENCHYMAL MASS. 2. NO SONOGRAPHIC FEATURES OF TORSION. PLEASE NOTE THAT PARTIAL OR INTERMITTENT TORSION MAY BE SONOGRAPHICALLY NORMAL. 3. SMALL BILATERAL HYDROCELES.
[2018-04-18 16:51] LABS: EGFR Non-African American 99.8 (>60)
[2018-04-18] MEDS ORDERED: Ketorolac INJ* 30 MG/ML 1 ML VIAL ONE (17:02)
[2018-04-18] MEDS ORDERED: Ketorolac INJ* 30 MG/ML 1 ML VIAL IV PUSH ONE (17:03)
[2018-04-18 17:57] VITALS: BP 114/76
== END 2018-04-18 17:56 | disposition home or self-care (01) ==
LOC: ED 15:12
DX: N50.812 Left testicular pain (principal); N43.3 Hydrocele, unspecified; F17.210 Nicotine dependence, cigarettes, uncomplicated
CPT/HCPCS: 36415; 76870; 80053; 81003; 83605; 83690; 85025; 86140; 87491; 87591; 93005; 96374; 99283; J1885

== ENCOUNTER 2018-05-12 21:28 | Emergency (ER) | payer SELFPAY ==
[2018-05-12 21:38] VITALS: BP 120/76
[2018-05-12] MEDS ORDERED: Cephalexin CAP* 500 MG PO ONE (21:59)
--- NOTE | 2018-05-12 22:06 | UC ---
Skin Complaint HPI - HPI Summary HPI Summary: 4 days of redness, pain, swelling to right anterior lower leg. No fever or drainage. Denies any trauma or injury to the area. - History of Current Complaint Chief Complaint: UCSkin Time Seen by Provider: 05/12/18 21:52 Stated Complaint: RASH ON LEG Hx Obtained From: Patient Onset/Duration: Sudden Onset, Lasting Days, Still Present Timing: Constant Onset Severity: Moderate Current Severity: Moderate Pain Intensity: 8 Pain Scale Used: 0-10 Numeric Character: Pain, Redness, Raised Aggravating Factor(s): Touch Alleviating Factor(s): Nothing Associated Signs & Symptoms: Positive: Tenderness - Allergy/Home Medications Allergies/Adverse Reactions: Allergies Allergy/AdvReac Type Severity Reaction Status Date / Time egg Allergy Rash And Verified 05/12/18 21:38 Itching gluten Allergy GI Upset Verified 05/12/18 21:38 milk Allergy Vomiting Verified 05/12/18 21:38 nut - unspecified Allergy Anaphylatic Verified 05/12/18 21:38 Shock BANANAS Allergy Severe Rash Uncoded 05/12/18 21:38 Review of Systems Constitutional: Negative Skin: Rash Respiratory: Negative Cardiovascular: Negative Gastrointestinal: Negative All Other Systems Reviewed And Are Negative: Yes PMH/Surg Hx/FS Hx/Imm Hx Previously Healthy: Yes Other History Of: Negative For: Anticoagulant Therapy - asa 325mg daily - Surgical History Surgical History: None Surgery Procedure, Year, and Place: no prior surg - Family History Known Family History: Positive: Hypertension, Diabetes - Social History Alcohol Use: Occasionally Substance Use Type: None Substance Use Comment - Amount & Last Used: rarely Smoking Status (MU): Light Every Day Tobacco Smoker Type: Cigarettes Amount Used/How Often: 1/2 PPD Household Exposure Type: Cigarettes - Immunization History Most Recent Tetanus Shot: 2011 Physical Exam Triage Information Reviewed: Yes Appearance: Well-Appearing, No Pain Distress, Well-Nourished Vital Signs: Initial Vital Signs Temp 98.0 F 05/12/18 21:36 Pulse 105 05/12/18 21:36 Resp 18 05/12/18 21:36 BP 120/76 05/12/18 21:36 Pulse Ox 100 05/12/18 21:36 Vital Signs Reviewed: Yes Eyes: Positive: Conjunctiva Clear ENT: Positive: Hearing grossly normal Neck: Positive: Supple Respiratory: Positive: No respiratory distress, No accessory muscle use Cardiovascular: Positive: Pulses Normal Abdomen Description: Positive: Soft Musculoskeletal: Positive: ROM Intact, Other: - NO CALF TENDERNESS. ACHILLES INTACT Neurological: Positive: Alert Psychological: Positive: Age Appropriate Behavior Skin: Positive: Other - 10CM X 7CM AREA OF INDURATION AND ERYTHEMA RIGHT LOWER LEG ANTEROMEDIALLY. TENDER TO PALPATION. Course/Dx - Diagnoses Provider Diagnoses: CELLULITIS RIGHT LOWER LEG Discharge - Sign-Out/Discharge Documenting (check all that apply): Patient Departure All imaging exams completed and their final reports reviewed: No Studies - Discharge Plan Condition: Stable Disposition: HOME Prescriptions: Cephalexin CAP* [Keflex 500 CAP*] 1,000 mg PO BID #[id number] cap Patient Education Materials: Cellulitis (ED) Forms: *Work Release Referrals: No Primary Care Phys,NOPCP [Primary Care Provider] - Additional Instructions: TAKE THE ANTIBIOTICS TWICE DAILY FOR THE FULL COURSE. KEEP LEG ELEVATED WHEN SEATED. IBUPROFEN NEEDED FOR DISCOMFORT. SEEK FOLLOW-UP IF YOU'RE NOT IMPROVING OVER THE NEXT 48 HOURS. CALL THE NUMBER BELOW FOR ASSISTANCE IN ESTABLISHING WITH A PCP An additional resource available to assist in finding the appropriate physician for your health care needs is the [facility] ([facility]). You may contact them by calling [phone]. - Billing Disposition and Condition Condition: STABLE Disposition: Home
== END 2018-05-12 22:10 | disposition home or self-care (01) ==
LOC: UCEAST 21:28
DX: L03.031 Cellulitis of right toe (principal); F17.210 Nicotine dependence, cigarettes, uncomplicated
CPT/HCPCS: 99212; A9270-GY; G0463

== ENCOUNTER 2018-07-22 20:32 | Emergency (ER) | payer SELFPAY ==
[2018-07-22] MEDS ORDERED: NS 0.9% 1000 ML* 1,000 ML IV ONE (20:50)
[2018-07-22] MEDS ORDERED: Ondansetron INJ* 2 MG/ML VIAL IV ONE (20:51)
[2018-07-22] MEDS ORDERED: Ketorolac INJ* 30 MG/ML 1 ML VIAL IV PUSH ONE (20:51)
[2018-07-22] MEDS ORDERED: Ketorolac INJ* 30 MG/ML 1 ML VIAL ONE (21:01)
[2018-07-22 21:31] VITALS: BP 117/62
--- NOTE | 2018-07-22 21:55 | UC ---
Abdominal Pain Male HPI - HPI Summary HPI Summary: 27-year-old male comes to clinic today with a chief complaint of left-sided abdominal pain nausea and vomiting. He woke up at 4:00 this morning with nausea left-sided abdominal pain. His been vomiting all day. Trying to eat something or drink something makes the nausea worse and he ends up throwing up. He has been passing flatus. He has had left-sided abdominal pain in the past that's been recurrent and no his been able to find out what exactly the causes. 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 No dysuria. Left-sided abdominal pain is mild to moderate and waxes and wanes in intensity. Denies any scrotal pain or testicular pain. - History of Current Complaint Chief Complaint: UCAbdominalPain Stated Complaint: abdominal pain, AND VOMITING Time Seen by Provider: 07/22/18 20:41 Pain Intensity: 7 - Allergies/Home Medications Allergies/Adverse Reactions: Allergies Allergy/AdvReac Type Severity Reaction Status Date / Time egg Allergy Rash And Verified 07/22/18 20:37 Itching gluten Allergy GI Upset Verified 07/22/18 20:37 milk Allergy Vomiting Verified 07/22/18 20:37 nut - unspecified Allergy Anaphylatic Verified 07/22/18 20:37 Shock BANANAS Allergy Severe Rash Uncoded 07/22/18 20:37 PMH/Surg Hx/FS Hx/Imm Hx Previously Healthy: Yes - situs inversus and dextrocardia Other History Of: Negative For: Anticoagulant Therapy - asa 325mg daily - Surgical History Surgical History: None Surgery Procedure, Year, and Place: no prior surg - Family History Known Family History: Positive: Hypertension, Diabetes - Social History Alcohol Use: Occasionally Substance Use Type: None Substance Use Comment - Amount & Last Used: rarely Smoking Status (MU): Light Every Day Tobacco Smoker Type: Cigarettes Amount Used/How Often: 1/2 PPD Household Exposure Type: Cigarettes - Immunization History Most Recent Tetanus Shot: 2011 Review of Systems All Other Systems Reviewed And Are Negative: Yes Constitutional: Positive: Negative Skin: Positive: Negative Eyes: Positive: Negative ENT: Positive: Negative Respiratory: Positive: Negative Cardiovascular: Positive: Negative Gastrointestinal: Positive: Abdominal Pain, Vomiting, Nausea Genitourinary: Positive: Negative. Negative: Dysuria, Hematuria, Frequency, Urgency, Vaginal/Penile Discharge Motor: Positive: Negative Neurovascular: Positive: Negative Musculoskeletal: Positive: Negative Neurological: Positive: Negative Psychological: Positive: Negative Is Patient Immunocompromised?: No Physical Exam Triage Information Reviewed: Yes Appearance: No Pain Distress, Well-Nourished, Ill-Appearing - mild Vital Signs: Initial Vital Signs Temp 99.2 F 07/22/18 20:38 Pulse 116 07/22/18 20:38 Resp 18 07/22/18 20:38 BP 133/89 07/22/18 20:38 Pulse Ox 100 07/22/18 20:38 Vital Signs Reviewed: Yes Eye Exam: Normal Eyes: Positive: Conjunctiva Clear ENT: Positive: Pharynx normal Neck exam: Normal Neck: Positive: Supple Respiratory: Positive: Lungs clear, Normal breath sounds, No respiratory distress Cardiovascular: Positive: Tachycardia Abdomen Description: Positive: Soft, Other: - mild llq tenderness to palpation. Negative: CVA Tenderness (R), CVA Tenderness (L) Bowel Sounds: Positive: Present Musculoskeletal Exam: Normal Musculoskeletal: Positive: Strength Intact, ROM Intact Neurological Exam: Normal Neurological: Positive: Alert, Muscle Tone Normal Psychological Exam: Normal Psychological: Positive: Age Appropriate Behavior Skin Exam: Normal Abd Pain Male Course/Dx - Course Course Of Treatment: Order Information: CT ABD/PEL W/O. Accession Number: [id number]. CPT: 56592. EXAM: CT Abdomen and Pelvis Without Contrast. EXAM DATE/TIME: 07/22/2018 9:04 PM. CLINICAL HISTORY: 27 years old, male; Pain; Abdominal pain; Acute; Patient HX: Patient has situs. inversus/dextrocardia, llq pain x 16 hours with vommiting and cough. TECHNIQUE: Axial computed tomography images of the abdomen and pelvis without contrast. All CT scans at this facility use at least one of these dose optimization. techniques: automated exposure control; mA and/or kV adjustment per patient. size ( includes targeted exams where dose is matched to clinical indication); or. iterative reconstruction. Coronal and sagittal reformatted images were created and reviewed. COMPARISON: A/P WO CT ABD/PEL W/O 02/14/2018 8:49 PM. FINDINGS: Lower thorax: No acute findings. ABDOMEN: Liver: Multiple small low- attenuation areas in the liver representing cysts,. unchanged from prior study. Hepatomegaly. Gallbladder and bile ducts: Normal. No calcified stones. No ductal dilation. Pancreas: Normal. No ductal dilation. Spleen: Normal. No splenomegaly. Adrenals: Normal. No mass. Kidneys and ureters: Normal. No hydronephrosis. Stomach and bowel: Moderate fecal loading in colon and rectum. No bowel. dilatation or obstruction. Appendix: Normal appendix. PELVIS: Bladder: Unremarkable as visualized. Reproductive: Unremarkable as visualized. ABDOMEN and PELVIS: Intraperitoneal space: Normal. No free air. No significant fluid collection. Bones/joints: No acute fracture. No dislocation. Soft tissues: Unremarkable. Vasculature: Normal. No abdominal aortic aneurysm. Lymph nodes: Normal. No enlarged lymph nodes. IMPRESSION: Situs inversus. Normal appendix. Moderate fecal loading of the colon and rectum. To contact [facility] with a general question: Operations Center - [phone]. For direct physician to physician contact: Physician Hotline - [phone]. [facility] ([facility] Facility ID #[id number]). . <Electronically signed by Marlys Regalado MD in OV> 07/22/18 5110. I discussed the CT report with the patient. In clinic he received a liter of normal saline Zofran 4 mg IV and Toradol 30 mg IV. Patient's condition is greatly improved after the medications. He tolerated by mouth. Percent arm all was some Zofran follow-up with regular doctor return or get rechecked for any worsening of his condition or questions or concerns. - Differential Dx/Clinical Impression Provider Diagnosis: Left sided abdominal pain, Nausea & vomiting, Dehydration Discharge - Sign-Out/Discharge Documenting (check all that apply): Patient Departure All imaging exams completed and their final reports reviewed: Yes - Discharge Plan Condition: Stable Disposition: HOME Prescriptions: Ondansetron ODT TAB* [Zofran 4 MG Odt TAB*] 4 mg PO Q6H PRN #10 tab.odt PRN Reason: Nausea Patient Education Materials: Dehydration (ED), Acute Nausea and Vomiting (ED), Abdominal Pain (ED) Forms: *Work Release Referrals: [facility] [place] [facility]IAN REFERRAL [Outside] Additional Instructions: FOLLOW UP WITH YOUR DOCTOR. GET RECHECKED FOR ANY WORSENING OF YOUR CONDITION; PAIN, FEVER, DEHYDRATION, YOU FEEL ILL OR QUESTIONS OR CONCERNS. - Billing Disposition and Condition Condition: STABLE Disposition: Home
[2018-07-22] MEDS ORDERED: Ondansetron ODT TAB* 4 MG PO ONE (21:58)
== END 2018-07-22 22:23 | disposition home or self-care (01) ==
LOC: UCEAST 20:32
DX: R10.9 Unspecified abdominal pain (principal); R11.2 Nausea with vomiting, unspecified; E86.0 Dehydration; F17.210 Nicotine dependence, cigarettes, uncomplicated
CPT/HCPCS: 74176; 81003; 96360; 96374; 96376; 99212; A9270-GY; G0463; J1885; J2405

== ENCOUNTER 2018-07-23 13:28 | Emergency (ER) | payer SELFPAY ==
[2018-07-23 14:33] LABS: ABS Basophils 0.1 10^3/ul (0-0.2); ABS Eosinophils 0.5 10^3/ul (0-0.6); ABS Monocytes 0.9 10^3/ul (0-0.8); ABS Neutrophils 4.6 10^3/ul (1.5-7.7); ABS Nucleated RBC 0 10^3/ul; Eosinophil % 5.8 %; Hematocrit 40 % (42-52); Hemoglobin 13.1 g/dl (14.0-18.0); Lymphocyte % 25.1 %; Mean Corpuscular HGB Conc 33 g/dl (31-36); Mean Corpuscular Hemoglobin 28 pg (27-31); Mean Corpuscular Volume 87 fL (80-94); Mean Platelet Volume 8.6 fL (7.4-10.4); Nucleated Red Blood Cells % 0; Platelet Count 169 10^3/ul (150-450); Red Blood Count 4.61 10^6/ul (4.00-5.40); Red Cell Distribution Width 15 % (10.5-15); White Blood Count 8.2 10^3/ul (3.5-10.8)
[2018-07-23] MEDS ORDERED: Magnesium CITRATE* 300 ML BTL PO ONE (15:03)
[2018-07-23] MEDS ORDERED: Ondansetron ODT TAB* 4 MG PO ONE (15:03)
[2018-07-23 15:08] LABS: ALT 26 U/L (7-52); AST 25 U/L (13-39); Albumin 3.9 g/dL (3.2-5.2); Albumin/Globulin Ratio 1.7 (1-3); Alkaline Phosphatase 81 U/L (34-104); Anion Gap 5 mmol/L (2-11); BUN/Creatinine Ratio 22.4 (8-20); Blood Urea Nitrogen 19 mg/dL (6-24); C Reactive Protein < 1.00 mg/L (<8.01); CO2 Carbon Dioxide 30 mmol/L (22-32); Calcium 9.1 mg/dL (8.6-10.3); Chloride 107 mmol/L (101-111); EGFR Non-African American 106.6 (>60); Globulin 2.3 g/dL (2-4); Glucose 104 mg/dL (70-100); Potassium 3.8 mmol/L (3.5-5.0); Sodium 142 mmol/L (135-145); Total Protein 6.2 g/dL (6.4-8.9)
--- NOTE | 2018-07-23 15:18 | ED ---
Abdominal Pain/Male - HPI Summary HPI Summary: A 27 y/o male presents to the ED c/o abdominal pain and constipation reaching 8/ 10 in severity. As per triage, "yesterday woke with left sided abd pain, N/V. seen at yesterday, IVF and antiemetic, CT scan. has been seen here as well for same issue". According to the patient, he has been having stomach pain again. He stated that the pain has been intermittently going on for the past 8 months. He stated that yesterday around 0400 he experienced abdominal pain and vomiting. He stated that he went to in which a CAT scan was done and constipation was found. He noted that he feels very constipated and is very dehydrated (pale) which became worse at work. He denies any headache, blurred vision, double vision (did think he saw something circular when he woke up, but it went away quickly), CP, ear pain, sore throat, neck pain, back pain, SOB, burning with urination, tenderness in testicular region, rash, edema, anxiety, depression, and bruising. His last bowel movement was "sort of yesterday" when he left . He is health otherwise. 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 No PMHx of colitis or Crohns. Patient would like a GI doctor. Colonoscopy years - History of Current Complaint Chief Complaint: EDAbdPain Stated Complaint: ABD PAIN Hx Obtained From: Patient Onset/Duration: Sudden Onset, Lasting Days, Still Present Timing: Constant Severity Initially: Severe Severity Currently: Severe Pain Intensity: 8 Pain Scale Used: 0-10 Numeric Location: Discrete At: LLQ Radiates: No Character: Other: - CONSTIPATION Aggravating Factor(s): Nothing Alleviating Factor(s): Nothing Associated Signs And Symptoms: Positive: Constipation, Vomiting - Allergies/Home Medications Allergies/Adverse Reactions: Allergies Allergy/AdvReac Type Severity Reaction Status Date / Time egg Allergy Rash And Verified 07/23/18 13:37 Itching gluten Allergy GI Upset Verified 07/23/18 13:37 milk Allergy Vomiting Verified 07/23/18 13:37 nut - unspecified Allergy Anaphylatic Verified 07/23/18 13:37 Shock BANANAS Allergy Severe Rash Uncoded 07/22/18 20:37 PMH/Surg Hx/FS Hx/Imm Hx Endocrine/Hematology History: Denies: Hx Anticoagulant Therapy - asa 325mg daily, Hx Diabetes, Hx Thyroid Disease Cardiovascular History: Reports: Hx Atrial Fibrillation Denies: Hx Hypertension, Hx Pacemaker/ICD Comment Only: 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 Respiratory History: Denies: Hx Chronic Obstructive Pulmonary Disease (COPD) Comment Only: Hx Asthma - SEASONAL ALLERGIES GI History: Denies: Hx Ulcer History: Reports: Hx Kidney Stones Comment Only: Other Problems/Disorders - intermittent pain in stomach - multiple food allergies Sensory History: Denies: Hx Contacts or Glasses Opthamlomology History: Denies: Hx Contacts or Glasses Neurological History: Denies: Hx Seizures - Surgical History Surgery Procedure, Year, and Place: COLONOSCOPY. - Immunization History Date of Tetanus Vaccine: utd Date of Influenza Vaccine: none Infectious Disease History: No Infectious Disease History: Denies: Hx Hepatitis, Hx Human Immunodeficiency Virus (HIV), Traveled Outside the [place] in Last 30 Days - Family History Known Family History: Positive: Hypertension, Diabetes - Social History Alcohol Use: Occasionally Hx Substance Use: No Substance Use Type: Reports: None Substance Use Comment - Amount & Last Used: rarely Hx Tobacco Use: Yes - FEW YEARS AGO Smoking Status (MU): Light Every Day Tobacco Smoker Type: Cigarettes Amount Used/How Often: 1/2 PPD Review of Systems Negative: Fever, Chills Positive: Other - NEGATIVE: DOUBLE VISION. Negative: Blurred Vision Negative: Sore Throat, Ear Ache Negative: Chest Pain Negative: Shortness Of Breath Positive: Abdominal Pain, Vomiting, Other - POSITIVE: CONSTIPATION; NEGATIVE: BLOOD IN STOOL. Negative: Diarrhea, Nausea Positive: other - NEGATIVE: TESTICULAR PAIN. Negative: dysuria, hematuria Positive: Other - NEGATIVE: NECK PAIN AND BACK PAIN. Negative: Edema Negative: Rash, Bruising Negative: Headache Negative: Anxious, Depressed All Other Systems Reviewed And Are Negative: No Physical Exam - Summary Physical Exam Summary: Appearance: Alert, conversive, nontoxic appearing Skin: Warm, dry, no mottling, no rashes, no contusions HEENT: EOMI, PERRL, moist mucous membranes Neck: No masses on the neck, supple Respiratory: Clear to auscultation, breath sounds present, no rales, no rhonchi , no wheezes Cardiovascular: RRR, pulses are symmetrical in both lower and upper extremities Abdomen: Soft, minimal left lower quadrant tenderness Bowel Sounds: Present Musculoskeletal: No CVA tenderness, no obvious deformity, moving all extremities in a grossly normal manner Neurological: A&Ox3, CN II-XII Intact, moving all extremities symmetrically Psychiatric: Normal affect and mood Triage Information Reviewed: Yes Vital Signs On Initial Exam: Initial Vitals Temp Pulse Resp BP Pulse Ox 98.8 F 96 16 131/80 100 07/23/18 13:35 07/23/18 13:35 07/23/18 13:35 07/23/18 13:35 07/23/18 13:35 Vital Signs Reviewed: Yes Diagnostics - Vital Signs Vital Signs Temp Pulse Resp BP Pulse Ox 07/23/18 13:35 98.8 F 96 16 131/80 100 - Laboratory Lab Results: Lab Results 07/23/18 07/23/18 07/23/18 Range/Units 14:24 14:24 14:24 WBC 8.2 (3.5-10.8) 10^3/ul RBC 4.61 (4.00-5.40) 10^6/ul Hgb 13.1 L (14.0-18.0) g/dl Hct 40 L (42-52) % MCV 87 (80-94) fL MCH 28 (27-31) pg MCHC 33 (31-36) g/dl RDW 15 (10.5-15) % Plt Count 169 (150-450) 10^3/ul MPV 8.6 (7.4-10.4) fL Neut % (Auto) 56.9 % Lymph % (Auto) 25.1 % [place] % (Auto) 11.6 % Eos % (Auto) 5.8 % Baso % (Auto) 0.6 % Absolute Neuts (auto) 4.6 (1.5-7.7) 10^3/ul Absolute Lymphs (auto) 2.0 (1.0-4.8) 10^3/ul Absolute Monos (auto) 0.9 H (0-0.8) 10^3/ul Absolute Eos (auto) 0.5 (0-0.6) 10^3/ul Absolute Basos (auto) 0.1 (0-0.2) 10^3/ul Absolute Nucleated RBC 0 10^3/ul Nucleated RBC % 0 Sodium 142 (135-145) mmol/L Potassium 3.8 (3.5-5.0) mmol/L Chloride 107 (101-111) mmol/L Carbon Dioxide 30 (22-32) mmol/L Anion Gap 5 (2-11) mmol/L BUN 19 (6-24) mg/dL Creatinine 0.85 (0.67-1.17) mg/dL Est GFR ( Amer) 128.9 (>60) Est GFR (Non-Af Amer) 106.6 (>60) BUN/Creatinine Ratio 22.4 H (8-20) Glucose 104 H (70-100) mg/dL Lactic Acid 1.3 (0.5-2.0) mmol/L Calcium 9.1 (8.6-10.3) mg/dL Total Bilirubin 0.30 (0.2-1.0) mg/dL AST 25 (13-39) U/L ALT 26 (7-52) U/L Alkaline Phosphatase 81 (34-104) U/L C-Reactive Protein < 1.00 (<8.01) mg/L Total Protein 6.2 L (6.4-8.9) g/dL Albumin 3.9 (3.2-5.2) g/dL Globulin 2.3 (2-4) g/dL Albumin/Globulin Ratio 1.7 (1-3) Lipase 35 (11.0-82.0) U/L Result Diagrams: 07/23/18 14:24 07/23/18 14:24 Lab Statement: Any lab studies that have been ordered have been reviewed, and results considered in the medical decision making process. Re-Evaluation - Re-Evaluation First Eval Re-Evaluation Time: 15:18 Change: Unchanged Comment: CANCELED URINALYSIS AND CHECKED URINALYSIS DONE AT YESTERDAY. URINALYSIS WAS NORMAL. Abdominal Pain Fem Course/Dx - Course Course Of Treatment: A 27 y/o male presents to the ED c/o abdominal pain and constipation reaching 8/10 in severity. According to the patient, he has been having stomach pain again. He stated that the pain has been intermittently going on for the past 8 months. He stated that yesterday around 0400 he experienced abdominal pain and vomiting. He stated that he went to in which a CAT scan was done and constipation was found. He noted that he feels very constipated and is very dehydrated (pale) which became worse at work. Physical examination findings significant for minimal left lower quadrant tenderness. No laboratory scans were done. Hematology and Chemistry screens were done. Urinalysis done yesterday at was reviewed. No significant laboratory abnormalities were found. In the ED course the patient received Zofran and Magnesium Citrate. Patient will be discharged with a diagnosis of acute abdominal pain and constipation. Patient is agreeable with this plan. - Diagnoses Provider Diagnoses: Acute abdominal pain, Constipation Discharge - Sign-Out/Discharge Documenting (check all that apply): Patient Departure - DISCHARGE - Discharge Plan Condition: Stable Disposition: HOME Patient Education Materials: Constipation (ED), Acute Abdominal Pain (ED) Forms: *Work Release Referrals: [facility] [Provider Group] Ezequiel Smith MD [Medical Doctor] - No Primary Care Phys,NOPCP [Primary Care Provider] - Additional Instructions: Please establish care with a pcp. I have given you a referral to a PCP and a analytics leader. REturn if worse or any new symptoms. Take all medications as previously instructed. take the zofran for nausea/vomiting. drink plenty of fluids. - Attestation Statements Document Initiated by Scribe: Yes Documenting Scribe: Jaquan Quiñones Provider For Whom Courtneyibe is Documenting (Include Credential): Annette Mitchell MD Scribe Attestation: Jaquan Medrano, scribed for Annette Mitchell MD on 07/23/18 at 1545. Status of Scribe Document: Ready
[2018-07-23 15:39] VITALS: BP 128/72
== END 2018-07-23 15:37 | disposition home or self-care (01) ==
LOC: ED 13:28
DX: R10.32 Left lower quadrant pain (principal); K59.00 Constipation, unspecified; R11.10 Vomiting, unspecified; F17.210 Nicotine dependence, cigarettes, uncomplicated
CPT/HCPCS: 36415; 80053; 83605; 83690; 85025; 86140; 99282; A9270-GY

== ENCOUNTER 2018-09-12 16:42 | Emergency (ER) | payer SELFPAY ==
[2018-09-12 16:51] VITALS: BP 130/78
--- NOTE | 2018-09-12 17:09 | UC ---
Lower Extremity/Ankle HPI - HPI Summary HPI Summary: pt complains of R foot pain, first felt pain on outside of R foot yesterday am. Cannot remember a fall but was drinking heavily Thursday night and friends say he was running. now has shooting pains in foot and looked swollen earlier today. no redness - History of Current Complaint Chief Complaint: UCLowerExtremity Stated Complaint: R FOOT PAIN Time Seen by Provider: 09/12/18 16:47 Hx Obtained From: Patient Onset/Duration: Sudden Onset Severity Initially: Moderate Severity Currently: Moderate Pain Intensity: 8 Aggravating Factor(s): Standing, Ambulation Alleviating Factor(s): Rest, Elevation Able to Bear Weight: Yes - Allergies/Home Medications Allergies/Adverse Reactions: Allergies Allergy/AdvReac Type Severity Reaction Status Date / Time egg Allergy Rash And Verified 09/12/18 16:52 Itching gluten Allergy GI Upset Verified 09/12/18 16:52 milk Allergy Vomiting Verified 09/12/18 16:52 nut - unspecified Allergy Anaphylatic Verified 09/12/18 16:52 Shock BANANAS Allergy Severe Rash Uncoded 07/22/18 20:37 PMH/Surg Hx/FS Hx/Imm Hx Previously Healthy: Yes Other History Of: Negative For: Anticoagulant Therapy - asa 325mg daily - Surgical History Surgical History: None Surgery Procedure, Year, and Place: COLONOSCOPY. 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 Negative: Rash, Bruising Musculoskeletal: Positive: Other: - R foot pain Neurological: Positive: Negative Psychological: Positive: Negative Is Patient Immunocompromised?: No Physical Exam Triage Information Reviewed: Yes Appearance: Well-Appearing, No Pain Distress, Well-Nourished Vital Signs: Initial Vital Signs Temp 99.1 F 09/12/18 16:45 Pulse 93 09/12/18 16:45 Resp 16 09/12/18 16:45 BP 130/78 09/12/18 16:45 Pulse Ox 100 09/12/18 16:45 Vital Signs Reviewed: Yes Respiratory Exam: Normal Cardiovascular Exam: Normal Cardiovascular: Positive: Pulses Normal, Brisk Capillary Refill Musculoskeletal: Positive: Strength Intact, ROM Intact Neurological Exam: Normal Psychological Exam: Normal Skin Exam: Normal Diagnostics - Radiology No standard instances Radiology Interpretation Completed By: Radiologist - No fracture Lower Extremity Course/Dx - Differential Dx/Diagnosis Differential Diagnosis/HQI/PQRI: Contusion, Fracture (Closed), Strain, Tendonitis Provider Diagnosis: Strain of foot, right Discharge - Sign-Out/Discharge Documenting (check all that apply): Patient Departure All imaging exams completed and their final reports reviewed: Yes - Discharge Plan Condition: Good Disposition: HOME Patient Education Materials: Foot Contusion (ED) Forms: *Work Release Referrals: No Primary Care Phys,NOPCP [Primary Care Provider] - Additional Instructions: elevate and rest foot when able iburpofen 600mg every 6 hours as needed for pain use post-op shoe for 1 week. follow-up here or with your foot doctor if no better 1 week - Billing Disposition and Condition Condition: GOOD Disposition: Home
== END 2018-09-12 17:40 | disposition home or self-care (01) ==
LOC: UCEAST 16:42
DX: S96.911A Strain of unspecified muscle and tendon at ankle and foot level, right foot, initial encounter (principal); F17.210 Nicotine dependence, cigarettes, uncomplicated; Z91.09 Other allergy status, other than to drugs and biological substances; Z91.012 Allergy to eggs; Z91.018 Allergy to other foods; Z91.011 Allergy to milk products; W19.XXXA Unspecified fall, initial encounter; Y92.9 Unspecified place or not applicable
CPT/HCPCS: 99212; G0463

== ENCOUNTER 2019-01-02 18:20 | Emergency (ER) | payer SELFPAY ==
--- OUTSIDE RECORDS SUMMARY | 2019-01-02 18:30 | XMS REPORT | Continuity of Care Document ---
:1990 External Reference #:[id number] Author Name Inés Wu Care Team Providers Name Role Phone Patient's Choice Primary Care Physician Unavailable Payers Date Identification Numbers Payment Provider Subscriber Policy Number: [id number] [facility] Roni Tate PayID: [id number] [address] [place] [address] Problems Active Problems Provider Date Atrial fibrillation Barb Plata M.D. Onset: 09/23/2011 Situs inversus viscerum Barb Plata M.D. Onset: 09/23/2011 Allergic rhinitis due to pollen Barb Plata M.D. Onset: 09/23/2011 Gastroesophageal reflux disease Barb Plata M.D. Onset: 09/23/2011 Tobacco user Barb Plata M.D. 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 Tobacco Use Start: Unknown currently smokes 1/2 Pack Daily Tobacco Use Start: Unknown 10/29 quit date Smoking Status Reviewed: 12/06/1810/29 quit date ETOH Use used to drink heavily 6 months ago/along with binge drinking ETOH Use consumes 1-2 glasses of wine per week Recreational Drug Use Sporadically uses Marijuana Tobacco Use Start: Unknown End: Patient is a former smoker Unknown Exercise Type/Frequency Exercises sporadically Currently Active Patient is currently sexually active Currently Active active male partner Condom Use Never Contraceptive Methods none # Partners in a Lifetime over 10 Avg # Partners in a Year 1 STD's No STD History Allergies, Adverse Reactions, Alerts Active Allergies Reaction Severity Comments Date Lactose Intolerance 02/29/2008 Eggs 02/29/2008 Chocolate 02/29/2008 Dust sneezing 11/04/2011 Pollen sneezing 11/04/2011 Latex 09/02/2017 Medications Active Medications SIG Qnty Indications Ordering Provider Date No Active Medications Unknown 09/02/2017 History Medications Biaxin 1 po bid 20tabs 461.9 Barb Plata, 02/24/2012 - 500mg Tablets M.D. 09/01/2017 Doxycycline Hyclate 1 po bid 20caps 461.9 Barb Plata, 02/24/2012 - M.D. 09/01/2017 100mg Capsules Ear Wax Removal instill in r ear 1units 380.4 Barb Plata, 02/10/2012 - Drops once a day X 7 M.D. 09/01/2017 6.5% Solution days Nexium 1 po qd 15caps 530.81 Barb Plata, 02/10/2012 - 40mg Capsules M.D. 09/01/2017 DR Patel 1 PO daily as 90caps 477.0 Barb Plata, 11/04/2011 - 10mg needed M.D. 09/01/2017 Capsules Zantac 150 Maximum 1 PO bid 60tabs Barb Plata, 09/23/2011 - Strength M.D. 09/01/2017 150mg Tablets Nicoderm CQ apply every day 30units 305.1 Barb Plata, 09/23/2011 - 14mg/24HR M.D. 02/10/2012 Patches 24HR Nicotine Polacrilex as needed for 60units 305.1 Barb Plata, 2011 - cravings M.D. 02/10/2012 2mg Lozenges Fluticasone 1 squirts each 1units 477.0 Barb Plata, 09/23/2011 - Propionate nostril qd M.D. 09/01/2017 50mcg/Act Suspension Ranitidine HCL 1 po bid 60tabs 530.81 Barb Plata, 09/23/2011 - 150mg MJhonny 02/24/2012 Tablets Kcl 1 PO qd 30units Topher Ball 03/01/2008 - 20Meq tablets Brenda Mendes 09/23/2011 Juan Jose Aspirin Ec Low 1 po qd Unknown - Dose 09/01/[address] Ceftin bid 10tabs Unknown - 250mg Tablets 02/24/2012 Mucinex 2 tab bid po prn 60tabs Unknown - 600mg Tablets 11/04/2011 ER 12HR Immunizations CPT Code Status Date Vaccine Lot # [id number] Given 11/04/2007 Tdap - Tetanus/Diptheria/Acellular Pertussis Vital Signs Date Vital Result Comment 12/06/2018 3:27pm Height 72 inches 6'0" Weight 200.00 lb Heart Rate 96 /min BP Systolic Sitting 122 mmHg BP Diastolic Sitting 72 mmHg Respiratory Rate 18 /min Pain Level 8 BMI (Body Mass Index) 27.1 kg/m2 11/05/2018 1:59pm Height 72 inches 6'0" Weight 200.00 lb Heart Rate 76 /min BP Systolic 126 mmHg BP Diastolic 72 mmHg Respiratory Rate 12 /min Pain Level 10 BMI (Body Mass Index) 27.1 kg/m2 01/01/2018 2:14pm Height 72 inches 6'0" Weight 190.00 lb Heart Rate 76 /min Respiratory Rate 16 /min Pain Level 5 BMI (Body Mass Index) 25.8 kg/m2 10/16/2017 8:30am Height 72 inches 6'0" Weight 190.00 lb Heart Rate 78 /min Respiratory Rate 16 /min Body Temperature 97.8 F Pain Level 4 BMI (Body Mass Index) 25.8 kg/m2 09/18/2017 9:12am Height 72 inches 6'0" Weight 190.00 lb Heart Rate 88 /min Respiratory Rate 18 /min Body Temperature 97.0 F Pain Level 7 BMI (Body Mass Index) 25.8 kg/m2 09/02/2017 2:19pm Height 72 inches 6'0" Weight 190.00 lb BP Systolic 124 mmHg BP Diastolic 74 mmHg Respiratory Rate 18 /min Body Temperature 97.8 F Pain Level 10 BMI (Body Mass Index) 25.8 kg/m2 02/24/2012 11:46am Height 72 inches 6'0" Weight 236.00 lb Heart Rate 76 /min BP Systolic Sitting 108 mmHg BP Diastolic Sitting 70 mmHg BMI (Body Mass Index) 32.0 kg/m2 02/10/2012 1:36pm Height 72 inches 6'0" Weight 237.00 lb Heart Rate 70 /min BP Systolic Sitting 110 mmHg BP Diastolic Sitting 70 mmHg BMI (Body Mass Index) 32.1 kg/m2 11/04/2011 9:04am Height 72 inches 6'0" Weight 229.00 lb Heart Rate 76 /min BP Systolic Sitting 102 mmHg BP Diastolic Sitting 70 mmHg BMI (Body Mass Index) 31.1 kg/m2 09/23/2011 11:34am Height 72 inches 6'0" Weight 225.00 lb Heart Rate 64 /min BP Systolic Sitting 104 mmHg BP Diastolic Sitting 70 mmHg BMI (Body Mass Index) 30.5 kg/m2 02/29/2008 2:25pm Height 72 inches 6'0" Weight 221.00 lb Heart Rate 72 /min BP Systolic Sitting 120 mmHg BP Diastolic Sitting 80 mmHg BP Systolic Standing 120 mmHg BP Diastolic Standing 80 mmHg Respiratory Rate 16 /min BMI (Body Mass Index) 30.0 kg/m2 Results Test Date Facility Test Result H/L Range Note Laboratory 11/04/19 [facility] Hepatitis B Nonreactive Nonreactive test finding [address] [place] [address] [phone] Hepatitis B 11/04/19 [facility] Hepatitis B Reactive Abnormal Nonreactive Surface AB [address] [place] [address] [phone] Hbsab Index > 100.00 1 Laboratory 11/04/2011 [facility] Hepatitis C Nonreactive Nonreactive test finding [address] [place] [address] [phone] H. Pylori 11/04/2011 [facility] H. Pylori Igg <0.75 index () [address] [place] [address] [phone] H. Pylori Igm AB Negative Negative H. Pylori Iga AB Negative Negative Lipid Profile 11/04/2011 [facility] Triglyceride 36 mg/dL Low 40-200 (Trig/Chol/HDL) [address] [place] [address] [phone] Cholesterol 156 mg/dL Less Than 200 3 High Density Lipoprotein 68 mg/dL High 40-60 4 Cholesterol/HDL Ratio 2.29 AVERAGE 1-4.97 Low Density Lipoprotein 81 mg/dL Less Than 100 5 GC/Chlamydia Aptima 11/04/2011 [facility] M < SEE [address] NOTE> [place] [id number] [phone] 1 The World Health Organization (WHO) Hepatitis B Immunoglobulin 1st International Reference Preparation (1976): The accepted criteria for immunity to HBV is anti-HBs activity greater than or equal to 10 mIU/mL. An Index Value of 1.00 is equivalent to 10 mIU/mL. Samples with an Index Value of 1.00 or greater are considered reactive (protective) in accordance with the CDC guidelines. 2 -- REFERENCE VALUE -- <0.75 (Negative) 0.75-0.99 (Equivocal) >=1.00 (Positive) Test Performed by: [facility] Dpt of Lab Med and Pathology [address] [place] [address] Wafer Fabricator: Kaushal Sarah III, M.D. 3 CHOLESTEROL INTERPRETATION: Desirable: Less than 200 MG/DL Borderline-High Risk: 200-239 MG/DL High-Risk: 240 MG/DL and over 4 HDL INTERPRETATION: Undesirable: High Risk: Less than 40 MG/DL Desirable: Low Risk: Greater than 60 MG/DL 5 LDL INTERPRETATION: Low Risk Optimal Level: LDL Less than 100 MG/DL Near or Above Optimal: LDL 100-129 MG/DL Borderline High Risk: LDL 130-159 MG/DL High Risk: LDL 160-189 MG/DL Very High Risk: LDL Greater than 189 MG/DL 6 RUN DATE: 11/07/11 [facility] NMI LIVE PAGE 1 RUN TIME: 1325 Specimen Inquiry RUN USER: INTERFACE Name: RONI TATE Status: REG REF Re11/04/11 Age/Sex: 21/M Unit#: [id number] Location: [facility] : 88 SPEC #: [id number] CASSANDRA: 11/04/11 STATUS: COMP REQ #: [id number] RECD: 11/04/11 [facility] SOURCE: URINE ENTR: 11/04/[address]: DANIALC: ORDERED: GC/CHL APTIMA QUERIES: MEDENT REQUISITION # [id number] ACT WKST: GCCHL 11/07/11 #1 Procedure Result Verified Site > CHLAMYDIA TRACHOMATIS RNA Final 11/07/11- 1325 ML NEGATIVE FOR CHLAMYDIA TRACHOMATIS rRNA A negative result does not preclude the presence of a C.trachomatis or N.gonorrhoeae infection because results are dependent on adequate specimen collection, absence of inhibitors, and sufficient rRNA to be detected. Test results may be affected by improper specimen collection, improper specimen storage, technical error, or specimen mixup. Limitations of the Procedure: The Aptima Combo 2 Assay is not intended for the evaluation of suspected sexual abuse or for other medico-legal indications. For those patients for whom a false positive result may have adverse psychosocial impact, the CDC recommends retesting by a method using an alternate technology. Therapeutic failure or success cannot be determined with the Aptima Combo 2 Assay since nucleic acid may persist following appropriate antimicrobial therapy. Results from the APTIMA Combo 2 Assay should be interpreted in conjunction with other laboraotry and clinical data available to the clinician. Performance characteristics for detecting C. trachomatis and N. gonorrhoeae are derived from high prevalence populations. Positive results in low prevalence populations should be interpreted carefully with the understanding that the likelihood of a false positive may be higher than a true positive. DEPARTMENT OF PATHOLOGY, [address] [place] [address] [facility] Permit #[id number] Ahmet Carlos M.D. Director Estephanie Bishop M.D. Silk Conditioner RUN DATE: 11/07/11 [facility] NMI LIVE PAGE 2 RUN TIME: 1325 Specimen Inquiry RUN USER: INTERFACE Name: RONI TATE Status: REG REF Re11/04/11 Age/Sex: 21/M Unit#: [id number] Location: [facility] : 88 -- -- CONTINU ED Procedure Result Verified Site > GC (N. GONORRHOEAE) RNA Final 11/07/11- 1325 ML NEGATIVE FOR NEISSERIA GONORRHOEAE rRNA A negative result does not preclude the presence of a C.trachomatis or N.gonorrhoeae infection because results are dependent on adequate specimen collection, absence of inhibitors, and sufficient rRNA to be detected. Test results may be affected by improper specimen collection, improper specimen storage, technical error, or specimen mixup. Limitations of the Procedure: The Aptima Combo 2 Assay is not intended for the evaluation of suspected sexual abuse or for other medico-legal indications. For those patients for whom a false positive result may have adverse psychosocial impact, the CDC recommends retesting by a method using an alternate technology. Therapeutic failure or success cannot be determined with the Aptima Combo 2 Assay since nucleic acid may persist following appropriate antimicrobial therapy. Results from the APTIMA Combo 2 Assay should be interpreted in conjunction with other laboraotry and clinical data available to the clinician. Performance characteristics for detecting C. trachomatis and N. gonorrhoeae are derived from high prevalence populations. Positive results in low prevalence populations should be interpreted carefully with the understanding that the likelihood of a false positive may be higher than a true positive. ML - [facility] Permit #[id number] [address] [place] [address] DEPARTMENT OF PATHOLOGY, [address] [place] [address] [facility] Permit #[id number] Ahmet Carlos M.D. Director Estephanie Bishop M.D. Silk Conditioner Procedures Date Code Description Status 04/24/2017 32543 ECHO Transthorasic Realtime 2D W Doppler & Color Flow Hosp Completed 04/24/2017 91183 EKG, Interpretation Only Completed 09/17/2011 21681 Color Flow Doppler/Interp & Reprt Completed 09/17/2011 03258 Pulse Wave/Continuous-Interp.RPT Completed 09/17/2011 41437 Echocardiography, Transesophageal, Real Time W/Image 2D Completed W/W/O M-M 09/17/2011 16205 EKG, Interpretation Only Completed 09/17/2011 22157 Cardioversion Completed 09/16/2011 49972 EKG, Interpretation Only Completed 02/29/2008 18096 ECHO/Stress Completed 02/29/2008 26623 Stress Test Completed 02/29/2008 09921 Stress Test Completed 02/29/2008 19105 EKG Tracing & Interpretation Completed 02/29/2008 53052 EKG Tracing & Interpretation Completed 02/28/2008 55436 ECHO/Stress Completed 02/28/2008 43151 Stress Test Completed 02/28/2008 57598 Stress Test Completed Encounters Type Date Location Provider Dx Diagnosis Office Visit 11/05/2018 Orthopedic Eugene Barnard, M84.374D Stress fracture , 1:45p Services Of Evangelist CARTAGENA right foot, subs for fx w routn heal M54.17 Radiculopathy, lumbosacral region M79.671 Pain in right foot Office Visit 01/01/2018 2:00p Orthopedic Eugene Barnard, W18.49xD Oth slipping, Services Of MD muller and Evangelist stumbling w/o falling, subs S92.354D Nondisp fx of 5th metatarsal bone, r ft, 7thD Office Visit 10/16/2017 Orthopedic Eugene Barnard, S92.354A Nondisp fx of 8:30a Services Of MD reina lucasal C.M.A. bone, right foot, init Office Visit 09/18/2017 Orthopedic Eugene Barnard, S92.354A Nondisp fx of 9:00a Services Of fifth metatarsisidoro C.M.A. 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 Unspec Office Visit 02/10/2012 1:30p Sales Operations Analyst Internal Barb Plata, 477.0 Rhinitis Allergic Medicine M.D. Due To Pollen 380.4 Impacted Cerumen Office Visit 11/04/2011 9:00a [facility] Internal Barb V70.0 Examination Medicine Brenda Plata General Medical Routine AT Health Care Facility 530.81 Esophageal Reflux 477.0 Rhinitis Allergic Due To Pollen 305.1 Tobacco Use Disorder Office Visit 09/23/2011 11:30a [facility] Internal Barb 427.31 Atrial Fibrillation Medicine Brenda Plata 530.81 Esophageal Reflux 305.1 Tobacco Use Disorder 477.0 Rhinitis Allergic Due To Pollen Office Visit 09/17/2011 8:20a Kike Ball 427.31 Atrial Cardiology Brenda Mendes Fibrillation Office Visit 09/16/2011 8:19a Kike Ball 427.Lanre Atrial Cardiology Brenda Mendes Fibrillation Office Visit 02/29/2008 2:20p Kike Ball 786.50 Pain Chest Unspec Cardiology Brenda Mendes 794.31 Electrocardiogram (ECG) (EKG) Abnormal Plan of Treatment 12/06/2018 - Eugene Barnard, MDM76.71 Peroneal tendinitis, right legNew Therapy: Physical TherapyFollow up:Follow Up: As [id number] Congenital pes planus, unspecified footReferral:[facility],
[2019-01-02] MEDS ORDERED: Cyclobenzaprine TAB* 10 MG PO ONE (20:50)
[2019-01-02] MEDS ORDERED: Ketorolac INJ* 30 MG/ML 1 ML VIAL IM ONE (20:50)
[2019-01-02] MEDS ORDERED: oxyCODONE/Acetamin 5/325 MG* TAB PO ONE (20:50)
--- NOTE | 2019-01-02 20:54 | ED ---
Back Pain - HPI Summary HPI Summary: Patient is a 28 y/o M presenting to ED with complaints of right back pain. He had an MRI three days ago which showed a herniated disc. Patient reports that he went for a nerve test two days ago as well and states that he needs to follow up with his medical provider for further plans of care. Today, pain is severe. He reports radiation of pain down his right leg and right foot numbness. PMHx of afib with cardioversion, heart on right side of chest, and renal calculi. On triage, pain is rated 10/10, lying down is noted to aggravate Sx. Home medications and allergies are reviewed. - History of Current Complaint Chief Complaint: EDBackInjuryPain Stated Complaint: "BACK PAIN PER PT" Time Seen by Provider: 01/02/19 19:24 Hx Obtained From: Patient Onset/Duration: Still Present, Worse Since - exacerbation of pain today Onset/Duration: Still Present, Worse Since - exacerbation of pain today Back Pain Location: Is Discrete @ - lower right back Severity Initially: Moderate Severity Currently: Severe Pain Intensity: 10 Pain Scale Used: 0-10 Numeric Aggravating Symptom(s): Other - lying down Alleviating Symptom(s): Nothing Associated Signs And Symptoms: Positive: Numbness - right foot numbness - Allergies/Home Medications Allergies/Adverse Reactions: Allergies Allergy/AdvReac Type Severity Reaction Status Date / Time egg Allergy Rash And Verified 01/02/19 18:25 Itching gluten Allergy GI Upset Verified 01/02/19 18:25 latex Allergy Rash Verified 01/02/19 18:25 milk Allergy Vomiting Verified 01/02/19 18:25 nut - unspecified Allergy Anaphylatic Verified 01/02/19 18:25 Shock BANANAS Allergy Severe Rash Uncoded 12/27/18 13:16 Home Medications: Home Medications methylPREDNISolone [Medrol] 4 mg PO DAILY WITH MEAL 01/02/19 [History Confirmed 01/02/19] PMH/Surg Hx/FS Hx/Imm Hx Endocrine/Hematology History: Denies: Hx Anticoagulant Therapy - asa 325mg daily, Hx Diabetes, Hx Thyroid Disease Cardiovascular History: Reports: Hx Atrial Fibrillation Denies: Hx Hypertension, Hx Pacemaker/ICD Comment Only: 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 Respiratory History: Denies: Hx Chronic Obstructive Pulmonary Disease (COPD) Comment Only: Hx Asthma - SEASONAL ALLERGIES GI History: Denies: Hx Ulcer History: Reports: Hx Kidney Stones Comment Only: Other Problems/Disorders - intermittent pain in stomach - multiple food allergies Musculoskeletal History: Denies: Hx Scoliosis Sensory History: Denies: Hx Contacts or Glasses, Hx Hearing Aid Opthamlomology History: Denies: Hx Contacts or Glasses Neurological History: Denies: Hx Headaches, Hx Seizures, Other Neuro Impairments/Disorders Psychiatric History: Denies: Hx Panic Disorder - Surgical History Surgery Procedure, Year, and Place: COLONOSCOPY. - Immunization History Date of Tetanus Vaccine: utd Date of Influenza Vaccine: none Infectious Disease History: No Infectious Disease History: Denies: Hx Hepatitis, Hx Human Immunodeficiency Virus (HIV), Traveled Outside the [place] in Last 30 Days - Family History Known Family History: Positive: Hypertension, Diabetes - Social History Alcohol Use: Occasionally Hx Substance Use: No Substance Use Type: Reports: None Substance Use Comment - Amount & Last Used: rarely Hx Tobacco Use: Yes - FEW YEARS AGO Smoking Status (MU): Current Every Day Smoker Type: Cigarettes Amount Used/How Often: 1/2 PPD Review of Systems Negative: Fever - on vitals, temp is 98 F Musculoskeletal: Other - POSITIVE - RIGHT BACK PAIN Positive: Numbness - right foot numbness All Other Systems Reviewed And Are Negative: Yes Physical Exam - Summary Physical Exam Summary: VITAL SIGNS: Reviewed. GENERAL: Patient is a well-developed and nourished MALE who is lying comfortable in the stretcher. Patient is not in any acute respiratory distress. Mild lumbosacral tenderness is noted. HEAD AND FACE: No signs of trauma. No ecchymosis, hematomas or skull depressions. No sinus tenderness. EYES: PERRLA, EOMI x 2, No injected conjunctiva, no nystagmus. EARS: Hearing grossly intact. Ear canals and tympanic membranes are within normal limits. MOUTH: Oropharynx within normal limits. NECK: Supple, trachea is midline, no adenopathy, no JVD, no carotid bruit, no c- spine tenderness, neck with full ROM CHEST: Symmetric, no tenderness at palpation LUNGS: Clear to auscultation bilaterally. No wheezing or crackles. CVS: Regular rate and rhythm, S1 and S2 present, no murmurs or gallops appreciated. ABDOMEN: Soft, non-tender. No signs of distention. No rebound no guarding, and no masses palpated. Bowel sounds are normal. EXTREMITIES: Positive right straight leg test at 60 degrees; all else normal, no edema, no cyanosis or clubbing. NEURO: Alert and oriented x 3. No acute neurological deficits. Speech is normal and follows commands. SKIN: Dry and warm Triage Information Reviewed: Yes Vital Signs On Initial Exam: Initial Vitals Temp Pulse Resp BP Pulse Ox 98.0 F 93 16 129/90 98 01/02/19 18:21 01/02/19 18:21 01/02/19 18:21 01/02/19 18:21 01/02/19 18:21 Vital Signs Reviewed: Yes Diagnostics - Vital Signs Vital Signs Temp Pulse Resp BP Pulse Ox 01/02/19 18:21 98.0 F 93 16 129/90 98 - Laboratory Lab Statement: Any lab studies that have been ordered have been reviewed, and results considered in the medical decision making process. Re-Evaluation - Re-Evaluation First Eval Re-Evaluation Time: 21:57 Change: Improved Comment: Patient reports improvement in Sx. He will be discharged to home and follow up with PCP and neurosurgery within three days. Patient is agreeable with this plan. Patient is hemodynamically stable, strict return precautions given. Back Pain Course/Dx - Course Course Of Treatment: Patient is a 28 y/o M presenting to ED with complaints of right back pain. He had an MRI three days ago which showed a herniated disc. Patient reports that he went for a nerve test two days ago as well and states that he needs to follow up with his medical provider for further plans of care. Today, pain is severe. He reports radiation of pain down his right leg and right foot numbness. PMHx of afib with cardioversion, heart on right side of chest, and renal calculi. On physical exam, mild lumbosacral tenderness is noted. Right straight leg raise test is positive at 60 degrees. During ED course , patient received Flexeril 10 mg PO, Toradol 30 mg IM, and Percocet 5/325, 1 tab. Patient reports improvement in Sx. He will be discharged to home and follow up with PCP and neurosurgery within three days. Patient is agreeable with this plan. Patient is hemodynamically stable, strict return precautions given. - Diagnoses Provider Diagnoses: Lumbar radiculopathy Discharge - Sign-Out/Discharge Documenting (check all that apply): Patient Departure - discharge Patient Received Moderate/Deep Sedation with Procedure: No - Discharge Plan Condition: Stable Disposition: HOME Prescriptions: Cyclobenzaprine TAB* [Flexeril 10 MG TAB*] 10 mg PO TID PRN #30 tab PRN Reason: Spasms - Back oxyCODONE/Acetamin 5/325 MG* [Percocet 5/325 TAB*] 1 tab PO Q6H PRN #14 tab MDD 4 PRN Reason: Pain Patient Education Materials: Lumbar Radiculopathy (ED) Referrals: [facility] [Outside] - 3 Days Braulio Chavez MD [Medical Doctor] - 3 Days Additional Instructions: PLEASE RETURN TO THE ED IMMEDIATELY FOR WORSENING OR CONCERNING SYMPTOMS. FOLLOW UP WITH YOUR PRIMARY CARE PHYSICIAN AND NEUROSURGERY WITHIN THREE DAYS - Attestation Statements Document Initiated by Scribe: Yes Documenting Scribe: JANELLE PAPPAS Provider For Whom Sivakumar is Documenting (Include Credential): AIMEE CURRY MD Scribe Attestation: IJANELLE, scribed for AIMEE CURRY MD on 01/02/19 at 2203. Status of Scribe Document: Ready
[2019-01-02 21:29] VITALS: BP 118/75
== END 2019-01-02 22:11 | disposition home or self-care (01) ==
LOC: ED 18:20
DX: M54.16 Radiculopathy, lumbar region (principal); R20.0 Anesthesia of skin; M54.9 Dorsalgia, unspecified; I48.91 Unspecified atrial fibrillation; Z87.442 Personal history of urinary calculi; F17.210 Nicotine dependence, cigarettes, uncomplicated; Z79.899 Other long term (current) drug therapy
CPT/HCPCS: 96372; 99283; A9270-GY; J1885

== ENCOUNTER 2019-01-28 05:54 | Observation (INO) | payer MEDICAID ==
[~2019-01-28 05:54] MED LIST: Buffered Lidocaine 1% SYRIN* 1 ML/SYRINGE INTRADERM ONE
--- OUTSIDE RECORDS SUMMARY | 2019-01-28 05:57 | XMS REPORT | Continuity of Care Document ---
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 02/24/2012 Tablets Kcl 1 PO qd 30units Topher F. 03/01/2008 - 20Meq tablets Brenda Mendes 09/23/2011 Juan Jose Aspirin Ec Low 1 po qd Unknown - Dose 09/01/2017 325mg Tablets Ceftin bid 10tabs Unknown - 250mg Tablets 02/24/2012 Mucinex 2 tab bid po prn 60tabs Unknown - 600mg Tablets 11/04/2011 ER 12HR Immunizations CPT Code Status Date Vaccine Lot # [id number] Given 11/04/2007 Tdap - Tetanus/Diptheria/Acellular Pertussis Vital Signs Date Vital Result Comment 01/14/2019 2:52pm Height 72 inches 6'0" Weight 200.00 lb BP Systolic Sitting 138 mmHg BP Diastolic Sitting 90 mmHg Pain Level 10 BMI (Body Mass Index) 27.1 kg/m2 12/06/2018 3:27pm Height 72 inches 6'0" Weight [...] Test Result H/L Range Note Laboratory 11/04/19 [facility] Hepatitis B Nonreactive Nonreactive test finding [address] [place] [address] [phone] Hepatitis B 11/04/19 [facility] Hepatitis B Reactive Abnormal Nonreactive Surface AB [address] [place] [address] [phone] Hbsab Index > 100.00 1 Laboratory 11/04/2011 [facility] Hepatitis C Nonreactive Nonreactive test finding [address] [place] [address] [phone] H. Pylori 11/04/2011 [facility] H. Pylori Igg <0.75 index () [address] [address] [phone] H. Pylori Igm AB Negative Negative H. Pylori Iga AB Negative Negative Lipid Profile 11/04/2011 [facility] Triglyceride 36 mg/dL Low 40-200 (Trig/Chol/HDL) [address] [place] [address] [phone] Cholesterol 156 mg/dL Less Than 200 3 High Density Lipoprotein 68 mg/dL High 40-60 4 Cholesterol/HDL Ratio 2.29 AVERAGE 1-4.97 Low Density Lipoprotein 81 mg/dL Less Than 100 5 GC/Chlamydia Aptima 11/04/2011 [facility] M < SEE [address] NOTE> [place] Gallardo [id number] [phone] 1 The World Health Organization (WHO) Hepatitis [...] 0.75-0.99 (Equivocal) >=1.00 (Positive) Test Performed by: [facility] Dpt of Lab Med and Pathology [address] [place] [address] Impregnating Machine Operator: Kaushal Sarah III, M.D. 3 CHOLESTEROL INTERPRETATION: [...] than 189 MG/DL 6 RUN DATE: 11/07/11 [facility] NMI LIVE PAGE 1 RUN TIME: 1325 Specimen Inquiry RUN USER: INTERFACE Name: RONI TATE Status: REG REF Re11/04/11 Age/Sex: 21/M Unit#: [id number] Location: [facility] : 88 SPEC #: [id number] CASSANDRA: 11/04/11 STATUS: COMP REQ #: [id number] RECD: 11/04/[address] [facility] [address] ENTR: 11/04/11 [facility] [address]: DANIALC: ORDERED: GC/CHL APTIMA QUERIES: MEDENT REQUISITION # [id number] ACT WKST: GCCHL 11/07/11 #1 Procedure Result [...] than a true positive. DEPARTMENT OF PATHOLOGY, [address] [place] [address] [facility] Permit #[id number] Ahmet Carlos M.D. Director Estephanie Bishop M.D. Rn Chemical Dependency RUN DATE: 11/07/11 [facility] NMI LIVE PAGE 2 RUN TIME: 1325 Specimen Inquiry RUN USER: INTERFACE Name: RONI TATE Status: REG REF Re11/04/11 Age/Sex: 21/M Unit#: [id number] Location: [facility] : 88 -- -- CONTINU ED Procedure [...] result may have adverse psychosocial impact, the [facility] recommends retesting by a method using an [...] may be higher than a true positive. - [facility] State Permit #[id number] [address] [place] [address] DEPARTMENT OF PATHOLOGY, [address] [place] [address] [facility] Permit #[id number] Brenda Main M.D. Rn Chemical Dependency Procedures Date Code Description Status 04/24/2017 96946 ECHO Transthorasic Realtime 2D W Doppler & Color Flow Hosp Completed 04/24/2017 17942 EKG, Interpretation Only Completed 09/17/2011 28341 Color Flow Doppler/Interp & Reprt Completed 09/17/2011 96799 Pulse Wave/Continuous-Interp.RPT Completed 09/17/2011 97789 Echocardiography, Transesophageal, Real Time W/Image 2D Completed W/W/O M-M 09/17/2011 66993 EKG, Interpretation Only Completed 09/17/2011 47239 Cardioversion Completed 09/16/2011 20591 EKG, Interpretation Only Completed 02/29/2008 66880 ECHO/Stress Completed 02/29/2008 12886 Stress Test Completed 02/29/2008 77750 Stress Test Completed 02/29/2008 83812 EKG Tracing & Interpretation Completed 02/29/2008 70603 EKG Tracing & Interpretation Completed 02/28/2008 36714 ECHO/Stress Completed 02/28/2008 13667 Stress Test Completed 02/28/2008 69722 Stress Test Completed Encounters Type Date Location Provider Dx Diagnosis Office Visit 12/06/2018 [facility] Eugene Barnard, M76.71 Peroneal 3:00p Of Evangelist CARTAGENA tendinitis, right leg Q66.50 Congenital pes planus, unspecified foot Office Visit 11/05/2018 1:45p [facility]opedic Eugene Barnard, M84.374D Stress Services Of fracture, right C.M.A. foot, subs for fx w routn heal M54.17 Radiculopathy, lumbosacral region M79.671 Pain in right foot Office Visit 01/01/2018 2:00p Orthopedic Eugene Barnard, W18.49xD Oth slipping, Services Of tripping and C.M.A. stumbling w/o falling, subs S92.354D Nondisp fx of 5th metatarsal bone, r ft, 7thD Office Visit 10/16/2017 [facility] Eugene Barnard, S92.354A Nondisp fx of 8:30a Services Of fifth metatarsal C.M.A. bone, right foot, init Office Visit 09/18/2017 Orthopedic Eugene Barnard, S92.354A Nondisp fx of 9:00a Services Of fifth metatarsal C.M.A. bone, right foot, init Office Visit 09/02/2017 Orthopedic Javi Koroma S92.354A Nondisp fx of 3:15p Services Of Brenda fifth metatarsal C.M.A. bone, right foot, init W18.40xA Slipping, tripping and stumbling w/o falling, unsp, init Office Visit 04/24/2017 8:38a [facility] Cheo [place], R07.89 Other chest Assoc,pc MD pain Hospitalists R74.8 Abnormal levels of other serum enzymes F14.10 Cocaine abuse, uncomplicated Office Visit 02/24/2012 11:50a Pharmaceutical Laboratory Technician Internal Barb Plata, 461.9 Sinusitis Acute Medicine - Inder Gutierrez Unspec Office Visit 02/10/2012 1:30p [facility] Internal Barb Plata, 477.0 Rhinitis Allergic Medicine - Inder Gutierrez Due To Pollen 380.4 Impacted Cerumen Office Visit 11/04/2011 9:00a [facility] Internal Barb V70.0 Examination Medicine - Inder Plata M.D. General Medical Routine AT [facility] 530.81 Esophageal Reflux 477.0 Rhinitis Allergic Due To Pollen 305.1 Tobacco Use Disorder Office Visit 09/23/2011 11:30a [facility] Internal Barb 427.31 Atrial Fibrillation Medicine - [facility] 530.81 Esophageal Reflux 305.1 Tobacco Use Disorder 477.0 Rhinitis Allergic Due To Pollen Office Visit 09/17/2011 8:20a Kike Ball 427.31 Atrial Cardiology Brenda Mendes Fibrillation Office Visit 09/16/2011 8:19a Kike Ball 427.Lanre Atrial Cardiology Brenda Mendes Fibrillation Office Visit 02/29/2008 2:20p Kike Ball 786.50 Pain Chest Unspec Cardiology Brenda Mendes 794.31 Electrocardiogram (ECG) (EKG) Abnormal Plan of Treatment 01/14/2019 - Geovanny Cardona, MDM51.36 Other intervertebral disc degeneration, lumbar regionFollow up:RV one week, one month, three months tuhzefQ08.16 Intervertebral disc disorders w radiculopathy, lumbar region
--- OUTSIDE RECORDS SUMMARY | 2019-01-28 05:57 | XMS REPORT | Continuity of Care Document ---
:1990 External Reference #:[id number] Author Name Jessica Odom Care Team Providers Name Role Phone Frankie Akbar MD Primary Care Physician Unavailable Payers Date Identification Numbers Payment Provider Subscriber Policy Number: [id number] Medicaid Roni [employer] Group Name: 1 1 [address] PayID: [id number] [place] [address] Problems Active Problems Provider Date Atrial fibrillation [...] lumbosacral neuritis Eugene Barnard MD Onset: 11/05/2018 Increased frequency of urination Frankie Akbar MD Onset: 01/19/2019 Dysuria Frankie Akbar MD Onset: 01/19/2019 Paroxysmal atrial fibrillation Frankie Akbar MD Onset: 01/19/2019 Degeneration of lumbar intervertebral disc Frankie Akbar MD Onset: 01/19/2019 Preoperative cardiovascular examination Frankie Akbar MD Onset: 01/19/2019 Peroneal tendinitis, right leg Eugene Barnard MD [...] Unknown 10/29 quit date Smoking Status Reviewed: 01/19/1910/29 quit date ETOH Use used to drink heavily 6 months ago/along with binge drinking ETOH Use consumes 1-2 glasses of wine per week Recreational Drug Use Sporadically uses Marijuana Tobacco Use Start: Unknown Light tobacco smoker (10 or fewer cigarettes/day) Exercise Type/Frequency Exercises sporadically Currently Active Patient [...] sneezing 11/04/2011 Pollen sneezing 11/04/2011 Latex 09/02/2017 Gluten 01/19/2019 Numb Nuts 01/19/2019 Medications Active Medications SIG Qnty Indications Ordering Provider Date Juan Jose Back & Body Unknown 500-32.5mg Tablets Percocet take 1 by mouth Unknown 10-325mg Tablets every 8 hours as needed pain History Medications No Active Unknown 09/02/2017 - Medications 01/19/2019 Biaxin 1 po bid 20tabs 461.9 Barb [...] 11/04/2011 - 10mg needed M.D. 09/01/2017 Capsules Ranitidine HCL 1 po bid 60tabs 530.81 Barb Plata, 09/23/2011 - 150mg M.D. 02/24/2012 Tablets Fluticasone 1 squirts each 1units 477.0 Barb Plata, 09/23/2011 - Propionate nostril qd M.D. 09/01/2017 50mcg/Act Suspension Nicotine Polacrilex as needed for 60units 305.1 Barb Plata, 2011 - cravings M.D. 02/10/2012 2mg Lozenges Nicoderm CQ apply every day 30units 305.1 Barb Plata, 09/23/2011 - 14mg/24HR M.D. 02/10/2012 Patches 24HR Zantac 150 Maximum 1 PO bid 60tabs Barb Plata, 09/23/2011 - Strength M.D. 09/01/2017 150mg Tablets Kcl 1 PO qd 30units Topher SkeltonTamera 03/01/2008 - 20Meq tablets Brenda Mendes 09/23/2011 Juan Jose Aspirin Ec Low 1 po qd Unknown - Dose 09/01/[address] Ceftin bid 10tabs Unknown - 250mg Tablets 02/24/2012 Mucinex 2 tab bid po prn 60tabs Unknown - 600mg Tablets 11/04/2011 ER 12HR Immunizations CPT Code Status Date Vaccine Lot # [id number] Given 11/04/2007 Tdap - Tetanus/Diptheria/Acellular Pertussis Vital Signs Date Vital Result Comment 01/19/2019 10:58am Weight 208.00 lb Heart Rate 84 /min BP Systolic 132 mmHg BP Diastolic 88 mmHg Respiratory Rate 16 /min Body Temperature 97.0 F Pain Level 10 O2 % BldC Oximetry 98 % 01/14/2019 2:52pm Height 72 inches 6'0" Weight [...] Date Facility Test Result H/L Range Note GC/Chlamydia 11/04/2011 [facility] M [address] -- <SEE NOTE> [place] [address] [phone] Lipid Profile 11/04/2011 [facility] Triglyceride 36 mg/dL Low 40-200 (Trig/Chol/HDL) [address] [place], [place] [id number] [phone] Cholesterol 156 mg/dL Less Than 200 2 High Density Lipoprotein 68 mg/dL High 40-60 3 Cholesterol/HDL Ratio 2.29 AVERAGE 1-4.97 Low Density Lipoprotein 81 mg/dL Less Than 100 4 H. Pylori 11/04/2011 [facility] H. Pylori Igg <0.75 index () 5 Evaluation [facility] [place] [address] [phone] H. Pylori Igm AB Negative Negative H. Pylori Iga AB Negative Negative Laboratory 11/04/2011 [facility] Hepatitis C Nonreactive Nonreactive test finding [address] [place] [address] [phone] Hepatitis B 11/04/2011 [facility] Hepatitis B Reactive Abnormal Nonreactive Surface AB [address] [place] [address] [phone] Hbsab Index > 100.00 6 Laboratory 11/04/2011 [facility] Hepatitis B Nonreactive Nonreactive test finding [facility] [place] [address] [phone] 1 RUN DATE: 11/07/11 [facility] NMI LIVE PAGE 1 RUN TIME: 1325 Specimen Inquiry RUN USER: INTERFACE Name: RONI TATE Status: REG REF Re11/04/11 Age/Sex: 21/M Unit#: [id number] Location: [facility] : 88 SPEC #: [id number] CASSANDRA: 11/04/11 STATUS: COMP REQ #: [id number] RECD: 11/04/11 [facility] DR: Sherlyn CARTAGENA,Barb SOURCE: URINE ENTR: 11/04/[address]: DANIAL: ORDERED: GC/CHL APTIMA QUERIES: MEDENT REQUISITION # [id number] ACT WKST: GCCHL 11/07/11 #1 Procedure Result [...] than a true positive. DEPARTMENT OF PATHOLOGY, [address] [place] [address] [facility] Permit #[id number] Ahmet Carlos M.D. Director Estephanie Bishop M.D. [employer] Clerk RUN DATE: 11/07/11 [facility] NMI LIVE PAGE 2 RUN TIME: 1325 Specimen Inquiry RUN USER: INTERFACE Name: RONI TATE Status: REG REF Re11/04/11 Age/Sex: 21/M Unit#: [id number] [facility] -- -- CONTINU ED Procedure [...] be higher than a true positive. - [facility] [place] Permit #[id number] [address] [facility] [address] DEPARTMENT OF PATHOLOGY, [facility] DATES [place], [place] [address] [facility] Permit #[id number] Ahmet Carlos M.D. Director Estephanie Bishop M.D. [employer] Clerk 2 CHOLESTEROL INTERPRETATION: Desirable: Less than 200 MG/DL Borderline-High Risk: 200-239 MG/DL High-Risk: 240 MG/DL and over 3 HDL INTERPRETATION: Undesirable: High Risk: Less than 40 MG/DL Desirable: Low Risk: Greater than 60 MG/DL 4 LDL INTERPRETATION: Low Risk Optimal Level: LDL Less than 100 MG/DL Near or Above Optimal: LDL 100-129 MG/DL Borderline High Risk: LDL 130-159 MG/DL High Risk: LDL 160-189 MG/DL Very High Risk: LDL Greater than 189 MG/DL 5 -- REFERENCE VALUE -- <0.75 (Negative) 0.75-0.99 (Equivocal) >=1.00 (Positive) Test Performed by: [facility] Dpt of Lab Med and Pathology [address] [place] [id number] Inpatient Auditor: Kauhsal Sarah III, M.D. 6 The World Health Organization (WHO) Hepatitis B Immunoglobulin 1st International Reference Preparation (1977): The accepted criteria for immunity to HBV is anti-HBs activity greater than or equal to 10 mIU/mL. An Index Value of 1.00 is equivalent to 10 mIU/mL. Samples with an Index Value of 1.00 or greater are considered reactive (protective) in accordance with the CDC guidelines. Procedures Date Code Description Status 04/24/2017 28444 ECHO Transthorasic Realtime 2D W Doppler & Color Flow Hosp Completed 04/24/2017 33655 EKG, Interpretation Only Completed 09/17/2011 80790 Color Flow Doppler/Interp & Reprt Completed 09/17/2011 68064 Pulse Wave/Continuous-Interp.RPT Completed 09/17/2011 60495 Echocardiography, Transesophageal, Real Time W/Image 2D Completed W/W/O M-M 09/17/2011 71990 EKG, Interpretation Only Completed 09/17/2011 59622 Cardioversion Completed 09/16/2011 47369 EKG, Interpretation Only Completed 02/29/2008 80854 ECHO/Stress Completed 02/29/2008 96342 Stress Test Completed 02/29/2008 32349 Stress Test Completed 02/29/2008 78309 EKG Tracing & Interpretation Completed 02/29/2008 17244 EKG Tracing & Interpretation Completed 02/28/2008 91442 ECHO/Stress Completed 02/28/2008 27356 Stress Test Completed 02/28/2008 12094 Stress Test Completed Encounters Type Date Location Provider Dx Diagnosis Office Visit 12/06/2018 [facility] Eugene Barnard, M76.71 Peroneal 3:00p Of [employer] CARTAGENA tendinitis, right leg Q66.50 Congenital pes planus, unspecified foot Office Visit 11/05/2018 1:45p Orthopedic Eugene Barnard M84.374D Stress Services Of fracture, right C.M.A. [...] falling, unsp, init Office Visit 04/24/2017 8:38a [facility] Cheo [place], R07.89 Other chest Assoc,pc MD pain Hospitalists R74.8 Abnormal levels of other serum enzymes F14.10 Cocaine abuse, uncomplicated Office Visit 02/24/2012 11:50a [facility] Internal Barb Plata, 461.9 Sinusitis Acute Medicine - Inder Gutierrez Unspec Office Visit 02/10/2012 1:30p [facility] Internal Barb Plata, 477.0 Rhinitis Allergic Medicine - Inder Gutierrez Due To Pollen 380.4 Impacted Cerumen Office Visit 11/04/2011 9:00a [facility] Internal Barb V70.0 Examination Medicine - Inder Plata M.D. General Medical Routine AT Health Care Facility 530.81 Esophageal Reflux 477.0 Rhinitis Allergic Due To Pollen 305.1 Tobacco Use Disorder Office Visit 09/23/2011 11:30a [facility] Internal Barb 427.31 Atrial Fibrillation Medicine - Brenda Plata Ccmob 530.81 Esophageal Reflux 305.1 Tobacco Use Disorder 477.0 Rhinitis Allergic Due To Pollen Office Visit 09/17/2011 8:20a Kike Ball 427.31 Atrial Cardiology Brenda Mendes Fibrillation Office Visit 09/16/2011 8:19a Kike Ball 427.Lanre Atrial Cardiology Brenda Mendes Fibrillation Office Visit 02/29/2008 2:20p Kike Ball 786.50 Pain Chest Unspec Cardiology Brenda Mendes 794.31 Electrocardiogram (ECG) (EKG) Abnormal Plan of Treatment 01/19/2019 - Frankie Akbar MDZ01.810 Encounter for preprocedural cardiovascular examinationFollow up:as needed.M51.36 Other intervertebral disc degeneration, lumbar qlctptB53.16 Intervertebral disc disorders with radiculopathy, lumbar regQ89.3 Situs ypqieoxaB23.0 Paroxysmal atrial hkjirdfchyrwX29.0 ZpjueayS83.0 Frequency of micturition
[2019-01-28] MEDS ORDERED: Lactated Ringers 1000 ML Bag* 1,000 ML IV SCH ×2 (06:00→11:00)
[2019-01-28] MEDS ORDERED: Famotidine IV* 10 MG/ML 2 ML (20 mg) IV ONE (06:00)
[2019-01-28] MEDS ORDERED: Lidocaine 1% w EPI 1:200,000* 30 ML VIAL ONE ×2 (06:41)
[2019-01-28] MEDS ORDERED: Thrombin 5,000 UNITS* 1 APPLIC KIT - topical use - TOPICAL ONE ×2 (06:42)
[2019-01-28] MEDS ORDERED: Bacitracin INJECTION* 50,000 UNITS ONE ×2 (06:42)
[2019-01-28] MEDS ORDERED: Buffered Lidocaine 1% SYRIN* 1 ML/SYRINGE INTRADERM ONE ×4 (06:46→06:52)
[2019-01-28] MEDS ORDERED: Famotidine IV* 10 MG/ML 2 ML (20 mg) ONE ×3 (06:46→06:52)
[2019-01-28] MEDS ORDERED: Cisatracurium* 2 MG/ML MDV 5 ML ONE ×2 (07:12)
[2019-01-28] MEDS ORDERED: Midazolam* 1 MG/ML 5 ML VIAL (5 MG) ONE ×2 (07:12)
[2019-01-28] MEDS ORDERED: Dexamethasone IV* 4 MG/ML 1 ML (4 MG) ONE ×2 (07:12)
[2019-01-28] MEDS ORDERED: Propofol* 10 MG/ML 20 ML BTL ONE ×2 (07:12→13:05)
[2019-01-28] MEDS ORDERED: fentaNYL* 50 MCG/ML 5 ML VIAL (250 MCG VIAL) ONE ×2 (07:12)
[2019-01-28] MEDS ORDERED: Ondansetron INJ* 2 MG/ML VIAL ONE ×2 (07:12)
[2019-01-28] MEDS ORDERED: Lidocaine 2% PF * 5 ML VIAL ONE ×2 (07:12)
[2019-01-28] MEDS ORDERED: KETAMINE HCL* 50 MG/ML 10 ML VIAL ONE ×2 (07:12)
[2019-01-28] MEDS ORDERED: Artificial Tear OPHTH.OINT* 3.5 GM ONE ×2 (07:15)
[2019-01-28] MEDS ORDERED: ceFAZolin 2 GM in NS PREMIX(*) 2 GM/100 ML BAG IVPB ONE ×2 (07:58)
[2019-01-28] MEDS ORDERED: Naloxone* 0.4 MG/ML 1 ML VIAL IV PRN (09:19)
[2019-01-28] MEDS ORDERED: Ondansetron INJ* 2 MG/ML VIAL IV PRN (09:19)
[2019-01-28] MEDS ORDERED: oxyCODONE/Acetamin 5/325 MG* TAB PO PRN ×2 (09:19→10:20)
[2019-01-28] MEDS ORDERED: HYDROmorphone INJ1* 1 MG/ML SYRINGE IV PRN (09:19)
[2019-01-28] MEDS ORDERED: HYDROcodone/ACETAMIN 5-325 MG* 1 TAB PO PRN (10:15)
[2019-01-28] MEDS ORDERED: Magnesium Hydroxide LIQ* 30 ML UDC PO PRN (10:15)
[2019-01-28] MEDS ORDERED: Cyclobenzaprine TAB* 10 MG PO PRN (10:20)
[2019-01-28] MEDS ORDERED: HYDROmorphone INJ* 0.5 MG/0.5 ML SYRINGE ONE ×4 (10:27→10:41)
[2019-01-28] MEDS ORDERED: fentaNYL* 50 MCG/ML 2 ML VIAL (100 MCG VIAL) ONE ×2 (11:10)
[2019-01-28] MEDS: fentaNYL* 50 MCG/ML 2 ML VIAL (100 MCG VIAL) IV PRN ×2 (11:11→11:32)
--- NOTE | 2019-01-28 12:57 | OP ---
OPERATIVE REPORT: DATE OF OPERATION: 01/28/19 DATE OF : 86 SURGEON: Geovanny Cardona MD WIRE TWISTER: HASEEB Delvalle The case was done with the assistance of surgical PA because of the complexity of the case. ANESTHESIA: General. PRE-OP DIAGNOSIS: Right L4-5 herniated nucleus pulposus. POST-OP DIAGNOSIS: Right L4-5 herniated nucleus pulposus. OPERATIVE PROCEDURE: The patient underwent right L4-5 MIS diskectomy and foraminotomy. ESTIMATED BLOOD LOSS: 5 cc. COMPLICATIONS: None. INDICATIONS: The patient is very pleasant 28-year-old gentleman with complaints of back pain radiating to the right lower extremity. The patient had MRI findings consistent with a right L4-5 herniated nucleus pulposus. Because of the persistence of his symptoms despite conservative modalities, he was offered the option of surgical intervention. After explaining expectations , limitations, and possible complications of the procedure to the patient and his mother with complications including but not limited to bleeding, infection, risk of injury to adjacent structures, coma, paralysis, , need for additional procedures, anesthesia risks, stroke, blindness, cancer, instability , adjacent level disease, spinal fluid leak, anesthesia risk, injury to bladder or bowel and abdominal contents, loss of bladder or bowel control, need for additional procedures, the patient and his mother were agreeable to proceed with surgery and informed consent was obtained. The patient understood that his condition may not improve and in fact may get worse after surgery and that he may need to have additional procedure in the future. He also understood that the operative plan may be modified according to intraoperative findings and conditions and patient may require prolonged hospitalization with prolonged ICU stay and rehabilitation. The patient understood that the procedure may be abandoned or done in more than one stage. DESCRIPTION OF PROCEDURE: The patient was brought to the operating room and was placed under general anesthesia by the anesthesia team. He was carefully positioned prone on the Lai frame on the Alvino table and all bony prominences were meticulously padded. The skin was prepped and draped in a standard fashion. After appropriate surgical pause and patient identification, a small paramedian incision over the right L4-5 disk space was marked on the skin with the assistance of intraoperative fluoroscopic imaging. The skin incision site was infiltrated with local anesthetic. A #10 surgical blade was used to incise the skin. The incision was carried down to the dorsal fascia with the use of Bovie cautery and after dividing gently the dorsal fascia, a series of dilators were used and introduced a METRx retractor system. Intraoperative fluoroscopic image confirmed excellent placement of the retractor and appropriate surgical level. Then a microscope was brought into the field and after exposing his right L4-5 uriel-lamina and part of the medial facet, a high-speed drill was used to perform a laminotomy as well as minimal medial partial facetectomy. The ligamentum flavum was then gently resected with the use of Kerrison punches and the L5 nerve root as well as the medial aspect of the thecal sac was readily identified. This was retracted medially with nerve root retractor and a large disk bulging was identified under the shoulder of the exiting nerve root as expected from preoperative MRI. A fragmentectomy and partial diskectomy was performed with the use of pituitary rongeurs after incising the annulus fibrosus with #15 surgical blade. At the end of the diskectomy, the nerve roots and the thecal sac was found to be free of any pressure phenomenon. After copious irrigation and meticulous hemostasis and after confirmation with intraoperative fluoroscopic image of correct surgical level and after meticulous inspection, the tubular retractor was gently removed. The wound was closed by layers with 0 interrupted Vicryl suture to approximate the dorsal fascia and 2-0 inverted interrupted Vicryl sutures to approximate the subcutaneous tissues. The skin was covered with Dermabond and sterile dressings. At the end of the procedure, all counts were reported to be correct. The patient remained hemodynamically stable throughout the case. He was turned supine, was extubated and was transferred to Recovery in excellent condition. The case was done with the assistance of a surgical PA because of the complexity of the case. [id number]/[facility] #: [id number] KETTY
[2019-01-28] MEDS: oxyCODONE TAB* 5 MG TAB PO PRN ×2 (16:48→21:23)
[2019-01-28] MEDS: oxyCODONE/Acetamin 5/325 MG* TAB PO PRN ×2 (16:48→21:22)
[2019-01-28] MEDS ORDERED: Nicotine* 2MG (FRUIT FLAVOR) GUM PO PRN (18:20)
[2019-01-29] MEDS: oxyCODONE TAB* 5 MG TAB PO PRN ×3 (01:34→10:19)
[2019-01-29] MEDS: oxyCODONE/Acetamin 5/325 MG* TAB PO PRN ×3 (01:34→10:19)
--- NOTE | 2019-01-29 10:16 | PN ---
Progress Note - Progress Note Date of Service: 01/29/19 SOAP: Subjective: [28 y/o male post right L4/L5 decompression POD #1. Patient doing well, his radicular pain has improved with surgery. Currently has some discomfort from surgical site, but has been well managed with medication. He has been walking with out assistance through out the justin, feels better than he did yesterday. Objective: Vital Signs - 12 hr Temp Pulse Resp BP Pulse Ox 01/29/19 10:19 18 01/29/19 08:15 18 01/29/19 08:00 18 01/29/19 07:56 98.8 F 81 19 136/79 100 01/29/19 06:01 18 01/29/19 06:00 18 01/29/19 05:00 16 01/29/19 03:20 97.7 F 65 16 136/71 100 01/29/19 01:34 18 01/29/19 00:24 97.5 F 100 18 131/56 100 General: Patient standing up in room, just finish walking the hallways, NAD Neuro: GCS 15 CN II - XII grossly intact, A&O x3, motor strength 5/5 in all extremities Sensation intact throughout Derm: Wound C/D/I Assessment: 28 y/o male post decompression of L4/L5, doing well ready for discharge. Plan: Discharge home Follow up with NSX in week.
[2019-01-29 12:07] VITALS: BP 149/79
[2019-01-29] MEDS ORDERED: Cetirizine* 10 MG TAB PO SCH (18:00)
== END 2019-01-29 13:05 | disposition home or self-care (01) ==
LOC: AA 05:54 → INTOOBSV 05:54 → SSU 10:15
PROVIDERS: ADMIT Neurological Surgery; ATTEND Neurological Surgery
DX: M51.36 Other intervertebral disc degeneration, lumbar region (principal); M51.16 Intervertebral disc disorders with radiculopathy, lumbar region; Z87.891 Personal history of nicotine dependence; M79.604 Pain in right leg; M21.371 Foot drop, right foot
CPT/HCPCS: 76000; 96374; 96375; A9270-GY; G0378; J0690; J1100; J1170; J2001; J2250; J2405; J2704; J3010

== ENCOUNTER → 2019-02-09 13:06 | Emergency (ER) | payer MEDICAID ==
[~2019-02-09 13:06] MED LIST changes: -Buffered Lidocaine 1% SYRIN* 1 ML/SYRINGE INTRADERM ONE; +Gadoteridol* (CONTRAST) 279.3 MG/ML 10 ML IV ONE; +oxyCODONE/Acetamin 5/325 MG* TAB PO ONE
--- OUTSIDE RECORDS SUMMARY | 2019-02-09 13:18 | XMS REPORT | Continuity of Care Document ---
:1990 External Reference #:[id number] Author Name Miriam Trejo Care Team Providers Name Role Phone Frankie Akbar MD Primary Care Physician Unavailable Payers Date Identification Numbers Payment Provider Subscriber Policy Number: [id number] Medicaid Roni Lundy Group Name: 1 1 [address] PayID: [id number] [place] [address] Problems Active Problems Provider Date Atrial fibrillation [...] Unknown 10/29 quit date Smoking Status Reviewed: 02/04/1910/29 quit date ETOH Use used to drink [...] CPT Code Status Date Vaccine Lot # 44914 Given 11/04/2007 Tdap - Tetanus/Diptheria/Acellular Pertussis Vital Signs Date Vital Result Comment 02/04/2019 9:04am Height 72 inches 6'0" Weight 208.00 lb BP Systolic Sitting 122 mmHg BP Diastolic Sitting 80 mmHg Pain Level 10 BMI (Body Mass Index) 28.2 kg/m2 01/19/2019 10:58am Weight 208.00 lb Heart Rate [...] Date Facility Test Result H/L Range Note Urinalysis Profile 01/25/2019 [facility] Urine Color Yellow [address] [place] [address] [phone] Urine Appearance Cloudy Urine Specific Matthews 1.031 High 1.010-1.030 Urine pH 6.0 N 5-9 Urine Urobilinogen Negative Negative Urine Ketones Negative Negative Urine Protein Negative Negative Urine Leukocytes Negative Negative Urine Blood Negative Negative Urine Nitrite Negative Negative Urine Bilirubin Negative Negative Urine Glucose Negative Negative Inr/Protime 01/25/2019 [facility] Inr 1.07 N 0.82-1.09 2 [place] [address] [phone] Laboratory test 01/25/2019 [facility] Partial 36.1 seconds N 26.0-38.0 3 [place] [address] PTT [phone] CBC No Diff 01/25/2019 [facility] White Blood 6.3 10^3/uL N 3.5-10.8 [place] [address] [phone] Red Blood Count 4.95 10^6/uL N 4.18-5.48 Hemoglobin 14.7 g/dL N 14.0-18.0 Hematocrit 43 % N 42-52 Mean Corpuscular Volume 87 fL N 80-94 Mean Corpuscular Hemoglobin 30 pg N 27-31 Mean Corpuscular HGB Conc 34 g/dL N 31-36 Red Cell Distribution Width 14 % N 10-15 Platelet Count 134 10^3/uL Low 150-450 Mean Platelet Volume 9.4 fL N 7.4-10.4 Basic Metabolic Panel 01/25/2019 [facility] Sodium 138 mmol/L N [address] [place] [address] [phone] Potassium 3.9 mmol/L N 3.5-5.0 Chloride 102 mmol/L N 101-111 Co2 Carbon Dioxide 29 mmol/L N 22-32 Anion Gap 7 mmol/L N 2-11 Glucose 82 mg/dL N 70-100 Blood Urea Nitrogen 19 mg/dL N 6-24 Creatinine 1.04 mg/dL N 0.67-1.17 BUN/Creatinine Ratio 18.3 N 8-20 Calcium 9.7 mg/dL N 8.6-10.3 Egfr Non- 83.9 >60 Egfr 101.5 >60 4 Type & Screen 01/25/2019 [facility] Patient Blood Type O Positive [address] [place] [address] [phone] Antibody Screen NEGATIVE Urine Culture And 01/19/2019 [facility] Urine Culture SEE RESULT [address] [place] [address] [phone] Laboratory test 01/19/2019 [facility] Hemoglobin A1c 5.9 % High 4.0- 6 [address] [facility] (Glyco HGB) [address] [place] [address] [phone] Urinalysis Profile 01/19/2019 [facility] Urine Color Yellow [facility] [place] [address] [phone] Urine Appearance Clear Urine Specific Matthews 1.024 N 1.010-1.030 Urine pH 5.0 N 5-9 Urine Urobilinogen Negative Negative Urine Ketones Negative Negative Urine Protein Negative Negative Urine Leukocytes 1+ Abnormal Negative Urine Blood Negative Negative Urine Nitrite Negative Negative Urine Bilirubin Negative Negative Urine Glucose Negative Negative Urine White Blood Cell Trace(0-5/hpf) Absent Urine Red Blood Cell Trace(0-2/hpf) Absent Urine Bacteria Absent Absent Urine Squamous Epithelial Cell Present Abnormal Absent Inr/Protime 01/19/2019 [facility] Inr 1.06 N 0.82-1.09 7 [place] [address] [phone] Laboratory test 01/19/2019 [facility] Magnesium 2.0 mg/dL N 1.9-2.[address] [place] [address] [phone] Comp Metabolic 01/19/2019 [facility] Sodium 138 mmol/L N 135- [address] [place] [address] [phone] Potassium 4.6 mmol/L N 3.5-5.0 Chloride 104 mmol/L N 101-111 Co2 Carbon Dioxide 30 mmol/L N 22-32 Anion Gap 4 mmol/L N 2-11 Glucose 87 mg/dL N 70-100 Blood Urea Nitrogen 13 mg/dL N 6-24 Creatinine 0.95 mg/dL N 0.67-1.17 BUN/Creatinine Ratio 13.7 N 8-20 Calcium 9.4 mg/dL N 8.6-10.3 Total Protein 6.8 g/dL N 6.4-8.9 Albumin 4.4 g/dL N 3.2-5.2 Globulin 2.4 g/dL N 2-4 Albumin/Globulin Ratio 1.8 N 1-3 Total Bilirubin 0.40 mg/dL N 0.2-1.0 Alkaline Phosphatase 52 U/L N 34-104 Alt 21 U/L N 7-52 Ast 20 U/L N 13-39 Egfr Non- 93.1 >60 Egfr 112.6 >60 8 CBC Auto Diff 01/19/2019 [facility] White Blood 7.0 10^3/uL N 3.5-10.[address] [place] [address] [phone] Red Blood Count 4.71 10^6/uL N 4.18-5.48 Hemoglobin 13.9 g/dL Low 14.0-18.0 Hematocrit 41 % Low 42-52 Mean Corpuscular Volume 88 fL N 80-94 Mean Corpuscular Hemoglobin 30 pg N 27-31 Mean Corpuscular HGB Conc 34 g/dL N 31-36 Red Cell Distribution Width 14 % N 10-15 Platelet Count 127 10^3/uL Low 150-450 Mean Platelet Volume 9.6 fL N 7.4-10.4 Abs Neutrophils 3.4 10^3/uL N 1.5-7.7 Abs Lymphocytes 2.3 10^3/uL N 1.0-4.8 Abs Monocytes 0.9 10^3/uL High 0-0.8 Abs Eosinophils 0.3 10^3/uL N 0-0.6 Abs Basophils 0.0 10^3/uL N 0-0.2 Abs Nucleated RBC 0.0 10^3/uL Granulocyte % 48.9 % Lymphocyte % 33.2 % Monocyte % 13.0 % Eosinophil % 4.3 % Basophil % 0.6 % Nucleated Red Blood Cells % 0.1 Lipid Profile 11/04/2011 [facility] Triglyceride 36 mg/dL Low 40-200 (Trig/Chol/HDL) [address] [place] [address] [phone] Cholesterol 156 mg/dL Less Than 200 9 High Density Lipoprotein 68 mg/dL High 40-60 10 Cholesterol/HDL Ratio 2.29 AVERAGE 1-4.97 Low Density Lipoprotein 81 mg/dL Less Than 100 11 GC/Chlamydia 11/04/2011 [facility] M [address] <SEE NOTE> [place], [place] [id number] [phone] H. Pylori 11/04/2011 [facility] H. Pylori <0.75 index () 13 Evaluation [address] [facility] [address] [address] [phone] H. Pylori Igm AB Negative Negative H. Pylori Iga AB Negative Negative Laboratory 11/04/2011 [facility] Hepatitis C Nonreactive Nonreactive test finding [address] [place] [address] [phone] Hepatitis B 11/04/2011 [facility] Hepatitis B Reactive Abnormal Nonreactive Surface AB [address] [place] [address] [phone] Hbsab Index > 100.00 14 Laboratory 11/04/2011 [facility] Hepatitis B Nonreactive Nonreactive test finding [address] [place] [address] [phone] 1 AA 01/28 2 Standard intensity warfarin therapeutic range: 2.0-3.0 High intensity warfarin therapeutic range: 2.5-3.5 3 AA 01/28 4 Because ethnic data is not always readily available, this report includes an eGFR for both -Americans and non- Americans. The National Kidney Disease Education Program (NKDEP) does not endorse the use of the MDRD equation for patients that are not between the ages of 18 and 70, are , have extremes of body size, muscle mass, or nutritional status, or are non- or non-. According to the National Kidney Foundation, irrespective of diagnosis, the stage of the disease is based on the level of kidney function: Stage Description GFR(mL/min/1.73 m(2)) 1 Kidney damage with normal or decreased GFR 90 2 Kidney damage with mild decrease in GFR 60-89 3 Moderate decrease in GFR 30-59 4 Severe decrease in GFR 15-29 5 Kidney failure <15 (or dialysis) 5 SEE RESULT BELOW Name: RONI LUNDY : [address]: Frankie Akbar MD Acct: [id number] Unit: [id number] AGE: 28 Location: LAB Re01/19/19 SEX: M Status: REG REF SPEC: [id number] CASSANDRA: 01/19/19-[address]: Frankie Akbar MD REQ: [id number] RECD: 01/19/19125 STATUS: COMP _ SOURCE: URINE SPDESC: ORDERED: Urine Culture Procedure Result Reported Site Urine Culture Final 01/20/19- 1306 ML No Growth (<1,000 CFU/mL) * ML - Main Lab . END OF REPORT DEPARTMENT OF PATHOLOGY, [address] [place] [address] Ahmet Carlos M.D. Director [facility] # [id number] 6 Therapeutic target for the treatment of diabetes mellitus patients is <7% HBA1C, and in selective patients <6.0%. Please refer to [place] [employer] diabetic care guidelines for further information. 7 Standard intensity warfarin therapeutic range: 2.0-3.0 High intensity warfarin therapeutic range: 2.5-3.5 8 Because ethnic data is not always readily available, this report includes an eGFR for both -Americans and non- Americans. The National Kidney Disease Education Program (NKDEP) does not endorse the use of the MDRD equation for patients that are not between the ages of 18 and 70, are , have extremes of body size, muscle mass, or nutritional status, or are non- or non-. According to the National Kidney Foundation, irrespective of diagnosis, the stage of the disease is based on the level of kidney function: Stage Description GFR(mL/min/1.73 m(2)) 1 Kidney damage with normal or decreased GFR 90 2 Kidney damage with mild decrease in GFR 60-89 3 Moderate decrease in GFR 30-59 4 Severe decrease in GFR 15-29 5 Kidney failure <15 (or dialysis) 9 CHOLESTEROL INTERPRETATION: Desirable: Less than 200 MG/DL Borderline-High Risk: 200-239 MG/DL High-Risk: 240 MG/DL and over 10 HDL INTERPRETATION: Undesirable: High Risk: Less than 40 MG/DL Desirable: Low Risk: Greater than 60 MG/DL 11 LDL INTERPRETATION: Low Risk Optimal Level: LDL Less than 100 MG/DL Near or Above Optimal: LDL 100-129 MG/DL Borderline High Risk: LDL 130-159 MG/DL High Risk: LDL 160-189 MG/DL Very High Risk: LDL Greater than 189 MG/DL 12 RUN DATE: 11/07/11 [facility] NMI LIVE PAGE 1 RUN TIME: 1325 Specimen Inquiry RUN USER: INTERFACE Name: RONI LUNDY Status: REG REF Re11/04/11 Age/Sex: 21/M Unit#: [id number] Location: [facility] : [birth year] SPEC #: [id number] CASSANDRA: 11/04/11-1023 STATUS: JOY REQ #: [id number] RECD: 11/04/[address] [facility]: URINE ENTR: 11/04/11-[address] [facility] [address]: DANIAL: ORDERED: GC/CHL APTIMA QUERIES: MEDENT REQUISITION # [id number] ACT WKST: GCCHL 11/07/11 #1 Procedure Result [...] result may have adverse psychosocial impact, the [facility] recommends retesting by a method using an [...] than a true positive. DEPARTMENT OF PATHOLOGY, [address] [place] [address] [facility] Permit #[id number] Brenda Main M.D. [place] RUN DATE: 11/07/11 [facility] NMI LIVE PAGE 2 RUN TIME: 1325 Specimen Inquiry RUN USER: INTERFACE Name: RONI LUNDY Status: REG REF Re11/04/11 Age/Sex: 21/M Unit#: [id number] Location: [facility]. : [birth year] -- -- CONTINU ED Procedure [...] result may have adverse psychosocial impact, the [facility] recommends retesting by a method using an [...] be higher than a true positive. - [facility] Permit #[id number] [facility] [place] [address] DEPARTMENT OF PATHOLOGY, [facility] [employer] [place], [place] [address] [facility] Permit #[id number] Ahmet Carlos M.D. Director Estephanie Bishop M.D. [place] 13 -- REFERENCE VALUE -- <0.75 (Negative) 0.75-0.99 (Equivocal) >=1.00 (Positive) Test Performed by: [facility] Dpt of Lab Med and Pathology [address] [place], [place] [id number] Senior Security Analyst: Kaushal Sarah III, M.D. 14 The World Health Organization (WHO) Hepatitis B [...] guidelines. Procedures Date Code Description Status 04/24/2017 94022 ECHO Transthorasic Realtime 2D W Doppler & Color Flow Hosp Completed 04/24/2017 18784 EKG, Interpretation Only Completed 09/17/2011 50978 Color Flow Doppler/Interp & Reprt Completed 09/17/2011 06210 Pulse Wave/Continuous-Interp.RPT Completed 09/17/2011 59317 Echocardiography, Transesophageal, Real Time W/Image 2D Completed W/W/O M-M 09/17/2011 37707 EKG, Interpretation Only Completed 09/17/2011 13470 Cardioversion Completed 09/16/2011 95753 EKG, Interpretation Only Completed 02/29/2008 88898 ECHO/Stress Completed 02/29/2008 60559 Stress Test Completed 02/29/2008 56226 Stress Test Completed 02/29/2008 39473 EKG Tracing & Interpretation Completed 02/29/2008 45029 EKG Tracing & Interpretation Completed 02/28/2008 60122 ECHO/Stress Completed 02/28/2008 30643 Stress Test Completed 02/28/2008 31728 Stress Test Completed Encounters Type Date Location Provider Dx Diagnosis Office Visit 01/19/2019 [facility] Internal Frankie Akbar MD Z01.810 Encounter for 10:20a Medicine - Suite preprocedural R cardiovascular examination M51.36 Other intervertebral disc degeneration, lumbar region M51.16 Intervertebral disc disorders w radiculopathy, lumbar region 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 leg Q66.50 Congenital pes planus, unspecified foot [...] r ft, 7thD Office Visit 10/16/2017 Orthopedic Eugeen Barnard, S92.354A Nondisp fx of 8:30a Services Of fifth metatarsal C.M.A. bone, right foot, init Office Visit 09/18/2017 Herb Barnard, S92.354A Nondisp fx of 9:00a Services Of fifth metatarsal C.M.A. bone, right foot, init Office Visit 09/02/2017 Orthopedic Javi Koroma S92.354A Nondisp fx of 3:15p Services Of Brenda fifth metatarsal C.M.A. bone, right foot, init W18.40xA Slipping, tripping and stumbling w/o falling, unsp, init Office Visit 04/24/2017 8:38a [facility] Cheo [place], R07.89 Other chest Assoc,pc MD pain Hospitalists R74.8 Abnormal levels of other serum enzymes F14.10 Cocaine abuse, uncomplicated Office Visit 02/24/2012 11:50a [facility] Barb Plata, 461.9 Sinusitis Acute Medicine - Mandyob Brenda Unspec Office Visit 02/10/2012 1:30p [facility] Barb Plata, 477.0 Rhinitis Allergic Medicine - Inder Gutierrez Due To Pollen 380.4 Impacted Cerumen Office Visit 11/04/2011 9:00a [facility] Internal Barb V70.0 Examination Medicine - Inder Plata M.D. General Medical Routine AT Health Care Facility 530.81 Esophageal Reflux 477.0 Rhinitis Allergic Due To Pollen 305.1 Tobacco Use Disorder Office Visit 09/23/2011 11:30a [facility] Internal Barb 427.31 Atrial Fibrillation Medicine - Brenda Plata Ccmob 530.81 Esophageal Reflux 305.1 Tobacco Use Disorder 477.0 Rhinitis Allergic Due To Pollen Office Visit 09/17/2011 8:20a Kike Ball 427.31 Atrial Cardiology Brenda Mendes Fibrillation Office Visit 09/16/2011 8:19a Kike Ball 427.31 Atrial Cardiology Brenda Mendes Fibrillation Office Visit 02/29/2008 2:20p Kike Ball 786.50 Pain Chest Unspec Cardiology Brenda Mendes 794.31 Electrocardiogram (ECG) (EKG) Abnormal Plan of Treatment Future Appointment(s):05/04/2019 1:00 pm - Geovanny Cardona MD at [facility]03/01/2019 10:30 am - HASEEB Delvalle at [facility]
[2019-02-09 17:02] LABS: ABS Basophils 0.1 10^3/ul (0-0.2); ABS Eosinophils 0.4 10^3/ul (0-0.6); ABS Lymphocytes 2.5 10^3/ul (1.0-4.8); ABS Neutrophils 2.6 10^3/ul (1.5-7.7); Hematocrit 45 % (42-52); Hemoglobin 15.2 g/dL (14.0-18.0); Lymphocyte % 37.7 %; Mean Corpuscular HGB Conc 34 g/dL (31-36); Mean Corpuscular Hemoglobin 30 pg (27-31); Mean Corpuscular Volume 87 fL (80-94); Mean Platelet Volume 9.5 fL (7.4-10.4); Nucleated Red Blood Cells % 0.2; Platelet Count 168 10^3/uL (150-450); Red Blood Count 5.14 10^6 /uL (4.18-5.48); Red Cell Distribution Width 14 % (10-15); White Blood Count 6.5 10^3/uL (3.5-10.8)
--- NOTE | 2019-02-09 17:06 | ED ---
Back Pain - HPI Summary HPI Summary: Patient is a 28-year-old male with a recent discectomy on 01/28/19 presenting to the ED with low back pain, localized swelling, weakness, sweats, chills and worsening pain. He is also endorsing intermittent SOB, without cough. Denies history of fevers. Neurosurgeon is Dr. Rosas. Denies any abdominal pain. He denies any urinary symptoms. He continues to take Percocet 5/325. He has also taking Tylenol, last dose was yesterday. - History of Current Complaint Chief Complaint: EDShortnessOfBreath Stated Complaint: SHORTNESS OF BREATH/SWELLING AT SURGICAL SIGHT PER Time Seen by Provider: 02/09/19 15:24 Hx Obtained From: Patient Onset/Duration: Sudden Onset Onset/Duration: Started Hours Ago Timing: Constant Severity Initially: Moderate Severity Currently: Moderate Pain Intensity: 9 Pain Scale Used: 0-10 Numeric Character: Dull Aggravating Symptom(s): Movement, Lifting, Bending Alleviating Symptom(s): Rest, Position Associated Signs And Symptoms: Positive: Swelling - swelling at surgical site - Risk Factors AAA Risk Factors: Negative TAD Risk Factors: Negative Cauda Equina Risk Factors: Negative Epidural Abscess Risk Factors: Negative - Allergies/Home Medications Allergies/Adverse Reactions: Allergies Allergy/AdvReac Type Severity Reaction Status Date / Time egg Allergy Severe Rash And Verified 02/09/19 13:12 Itching, throat swelling gluten Allergy Severe GI Upset Verified 02/09/19 13:12 latex Allergy Severe Rash Verified 02/09/19 13:12 milk Allergy Severe Vomiting, Verified 02/09/19 13:12 sever stomach pain nut - unspecified Allergy Severe Anaphylatic Verified 02/09/19 13:12 Shock BANANAS Allergy Severe Rash Uncoded 02/09/19 13:12 Home Medications: Home Medications oxyCODONE/Acetamin 5/325 MG* [Percocet 5/325 TAB*] 2 tab PO Q4H PRN MDD 4 [History Confirmed 02/09/19] PMH/Surg Hx/FS Hx/Imm Hx Previously Healthy: Yes Endocrine/Hematology History: Denies: Hx Anticoagulant Therapy - asa 325mg daily, Hx Diabetes, Hx Thyroid Disease Cardiovascular History: Reports: Hx Atrial Fibrillation Denies: Hx Hypertension, Hx Pacemaker/ICD Comment Only: 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 Respiratory History: Denies: Hx Chronic Obstructive Pulmonary Disease (COPD) Comment Only: Hx Asthma - SEASONAL ALLERGIES GI History: Reports: Hx Gastroesophageal Reflux Disease Denies: Hx Ulcer History: Reports: Hx Kidney Stones - hx of Comment Only: Other Problems/Disorders - intermittent pain in stomach - multiple food allergies Musculoskeletal History: Denies: Hx Scoliosis Sensory History: Denies: Hx Contacts or Glasses, Hx Hearing Aid Opthamlomology History: Denies: Hx Contacts or Glasses Neurological History: Denies: Hx Headaches, Hx Seizures, Other Neuro Impairments/Disorders Psychiatric History: Denies: Hx Panic Disorder - Cancer History Hx Chemotherapy: No - Surgical History Surgery Procedure, Year, and Place: COLONOSCOPY. - Immunization History Date of Tetanus Vaccine: utd Date of Influenza Vaccine: none Hx Pertussis Vaccination: No Immunizations Up to Date: Yes Infectious Disease History: No Infectious Disease History: Denies: Hx Hepatitis, Hx Human Immunodeficiency Virus (HIV), Traveled Outside the [place] in Last 30 Days - Family History Known Family History: Positive: Hypertension, Diabetes - Social History Occupation: Employed Full-time Lives: With Family Alcohol Use: Occasionally Hx Substance Use: No Substance Use Type: Reports: None Substance Use Comment - Amount & Last Used: rarely Hx Tobacco Use: Yes Smoking Status (MU): Light Every Day Tobacco Smoker Type: Cigarettes Amount Used/How Often: 1/2 PPD- did get nicorette gum and patches to quit Review of Systems Positive: Fatigue. Negative: Fever, Chills, Skin Diaphoresis Negative: Palpitations, Chest Pain Positive: Shortness Of Breath. Negative: Cough Negative: Abdominal Pain, Vomiting, Diarrhea, Nausea Genitourinary: Negative Positive: no symptoms reported, see HPI Positive: Arthralgia - low back pain Positive: Other - swelling at surgical site without evidence of infection/ incision is CDI Positive: Weakness - "fatigued" All Other Systems Reviewed And Are Negative: Yes Physical Exam Triage Information Reviewed: Yes Vital Signs On Initial Exam: Initial Vitals Temp Pulse Resp BP Pulse Ox 98.0 F 99 16 125/83 99 02/09/19 13:08 02/09/19 13:08 02/09/19 13:08 02/09/19 13:08 02/09/19 13:08 Vital Signs Reviewed: Yes Appearance: Positive: Well-Appearing, Well-Nourished Skin: Positive: Skin Color Reflects Adequate Perfusion Head/Face: Positive: Normal Head/Face Inspection Eyes: Positive: EOMI Neck: Positive: Supple, No Lymphadenopathy Respiratory/Lung Sounds: Positive: Clear to Auscultation, Breath Sounds Present Cardiovascular: Positive: RRR, Pulses are Symmetrical in both Upper and Lower Extremities Musculoskeletal: Positive: Normal, Strength/ROM Intact Neurological: Positive: Sensory/Motor Intact, Alert, Oriented to Person Place, Time, Speech Normal Psychiatric: Positive: Affect/Mood Appropriate Diagnostics - Vital Signs Vital Signs Temp Pulse Resp BP Pulse Ox 02/09/19 13:08 98.0 F 99 16 125/83 99 - Laboratory Result Diagrams: 02/09/19 16:51 02/09/19 18:36 Lab Statement: Any lab studies that have been ordered have been reviewed, and results considered in the medical decision making process. Back Pain Course/Dx - Course Course Of Treatment: During his course of treatment, the patient is evaluated for worsening low back pain following an L4/L5 discectomy by Dr. Cardona 12 days ago. He is also endorsing some sweats, chills, weakness and swelling at the surgical site. On physical examination, there is noticeable swelling directly over the surgical site. Incision site is clean dry and intact. No evidence of infection, erythema or purulent drainage from the area. Discussed case with Dr. Cardona who recommends MRI with and without contrast. Labs pending. MRI ordered and pending upon sign out to Hollie Sotelo PA-C. He is given oxycodone 5mg. - Diagnoses Provider Diagnoses: Back pain - Provider Notifications Discussed Care Of Patient With: Geovanny Cardona Discharge - Sign-Out/Discharge Documenting (check all that apply): Patient Departure Patient Received Moderate/Deep Sedation with Procedure: No - Discharge Plan Condition: Good Disposition: HOME Referrals: Frankie Akbar MD [Primary Care Provider] - Geovanny Cardona MD [Medical Doctor] - Additional Instructions: Follow up with neurosurgery on Thursday apply ice Return to ED if develop any fever or any new or worsening symptoms - Billing Disposition and Condition Condition: GOOD Disposition: Home
[2019-02-09 17:37] LABS: Albumin 4.3 g/dL (3.2-5.2); CO2 Carbon Dioxide 28 mmol/L (22-32); Calcium 9.5 mg/dL (8.6-10.3); Chloride 104 mmol/L (101-111); Sodium 136 mmol/L (135-145)
[2019-02-09 17:43] LABS: ALT 115 U/L (7-52); Albumin/Globulin Ratio 1.4 (1-3); Alkaline Phosphatase 80 U/L (34-104); BUN/Creatinine Ratio 19.3 (8-20); Blood Urea Nitrogen 17 mg/dL (6-24); C Reactive Protein < 1.00 mg/L (<8.01); EGFR Non-African American 101.7 (>60); Glucose 100 mg/dL (70-100); Total Protein 7.3 g/dL (6.4-8.9)
[2019-02-09 17:55] LABS: Anion Gap 4 mmol/L (2-11)
[2019-02-09 23:22] LABS: Activated Partial Thrombo Time 37.5 seconds (26.0-38.0); INR 0.97 (0.82-1.09)
--- NOTE | 2019-02-09 23:31 | ED ---
Progress - Progress Note Progress Note: patient signed out pending MRI. MRI shows: IMPRESSION: 1. Right hemilaminectomy at L4-L5 with fluid collection at the laminectomy bed as well as the posterior subcutaneous soft tissues. Fluid collections are likely postoperative, component of infection cannot be excluded. 2. Severe central canal stenosis at L4-L5. 3. Left central protrusion at L5-S1 causes mild mass effect upon the traversing left S1 nerve root. 4. Additional findings as above. Course/Dx - Course Course Of Treatment: During his course of treatment, the patient is evaluated for worsening low back pain following an L4/L5 discectomy by Dr. Cardona 12 days ago. He is also endorsing some sweats, chills, weakness and swelling at the surgical site. On physical examination, there is noticeable swelling directly over the surgical site. Incision site is clean dry and intact. No evidence of infection, erythema or purulent drainage from the area. Discussed case with Dr. Cardona who recommends MRI with and without contrast. MRI shows some fluid collection. wbc normal. vitals stable. discussed mri with dr cardona who says get inr which is normal. patient wants to go home and able to ambulate without difficulty. discussed needs follow up thursday but to return if develop any worsening symptoms. patient understand and agrees with plan. - Diagnoses Provider Diagnoses: Back pain Discharge - Sign-Out/Discharge Documenting (check all that apply): Patient Departure, Receiving Sign-Out Receiving patient FROM: Delicia Pretty Patient Received Moderate/Deep Sedation with Procedure: No - Discharge Plan Condition: Good Disposition: HOME Referrals: Frankie Akbar MD [Primary Care Provider] - Geovanny Cardona MD [Medical Doctor] - Additional Instructions: Follow up with neurosurgery on Thursday apply ice Return to ED if develop any fever or any new or worsening symptoms - Billing Disposition and Condition Condition: GOOD Disposition: Home
[2019-02-09 23:37] VITALS: BP 139/86
== END | disposition home or self-care (01) ==
LOC: ED 13:06
DX: M51.27 Other intervertebral disc displacement, lumbosacral region (principal); M48.07 Spinal stenosis, lumbosacral region; R06.02 Shortness of breath; R53.83 Other fatigue; R22.2 Localized swelling, mass and lump, trunk; R68.83 Chills (without fever); Z98.1 Arthrodesis status; E11.9 Type 2 diabetes mellitus without complications; I48.91 Unspecified atrial fibrillation; Q24.0 Dextrocardia; Z79.82 Long term (current) use of aspirin; Z87.442 Personal history of urinary calculi; Z91.012 Allergy to eggs; Z91.040 Latex allergy status; Z91.011 Allergy to milk products; Z91.018 Allergy to other foods; F17.210 Nicotine dependence, cigarettes, uncomplicated
CPT/HCPCS: 36415; 72158; 80053; 83605; 85025; 85610; 85730; 86140; 87040; 99283; A9270-GY; A9579

== ENCOUNTER 2019-07-24 04:00 | Emergency (ER) | payer OTHER ==
--- OUTSIDE RECORDS SUMMARY | 2019-07-24 04:10 | XMS REPORT | Continuity of Care Document ---
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 Onset: 09/23/2011 Situs inversus viscerum Barb Plata M.D. Onset: 09/23/2011 Allergic rhinitis due to pollen Barb Plata M.D. Onset: 09/23/2011 Gastroesophageal reflux disease Barb Plata M.D. Onset: 09/23/2011 Tobacco user Barb Plata M.D. Onset: 09/23/2011 Stress fracture of metatarsal bone Eugene Barnard MD Onset: 11/05/2018 Thoracic and lumbosacral neuritis Eugene Barnard MD Onset: 11/05/2018 Congenital pes planus Eugene Barnard MD Onset: 12/06/2018 Peroneal tendinitis, right leg Eugene Barnard MD Onset: 12/06/2018 Preoperative cardiovascular examination Frankie Akbar MD Onset: 01/19/2019 Degeneration of lumbar intervertebral disc Frankie Akbar MD Onset: 01/19/2019 Paroxysmal atrial fibrillation Frankie Akbar MD Onset: 01/19/2019 Note: 20 years old,takes juan jose [employer] Dysuria Frankie Akbar MD Onset: 01/19/2019 Increased frequency of urination Frankie Akbar MD Onset: 01/19/2019 Social History Type Date Description Comments Sex Unknown Tobacco Use Start: Unknown currently smokes 1/2 Pack Daily Tobacco Use Start: Unknown 10/29 quit date Smoking Status Reviewed: 07/06/1910/29 quit date ETOH Use used to drink heavily 6 months ago/along with binge drinking ETOH Use consumes 1-2 glasses of states not currently wine per week drinking because it makes him sick Recreational Drug Use Sporadically uses Marijuana Tobacco Use Start: Unknown Light tobacco smoker (10 or fewer cigarettes/day) Exercise Type/Frequency Exercises rarely starting PT on 05/06/19 due to back surgery Allergies, Adverse Reactions, Alerts Active Allergies Reaction Severity Comments Date Lactose Intolerance 02/29/2008 Eggs 02/29/2008 Chocolate 02/29/2008 Dust sneezing 11/04/2011 Pollen sneezing 11/04/2011 Latex 09/02/2017 Gluten 01/19/2019 Numb Nuts 01/19/2019 Banana Extract 04/26/2019 Medications Active Medications SIG Qnty Indications Ordering Provider Date Ibuprofen three times a day 90tabs M54.5 Frankie Akbar MD 06/27/2019 600mg Tablets as needed for pain Omeprazole 1 by mouth every 30caps R10.9 Frankie Akbar MD 03/23/[address] Ondansetron take 1 every 8 90tabs Frankie Akbar MD 03/23/2019 8mg Tablets hours as needed Dispers nausea Hydrocodone take 1 tab every 30tabs R10.9 Frankie Akbar MD 03/23/2019 Bitartrate/Acetaminop night or during hen physical therapy 5-325mg Tablets as needed for pain [facility] [employer] takes daily Unknown 500-32.5mg Tablets History Medications Ondansetron HCL take one every 30tabs Frankie Akbar MD 03/09/2019 - 4mg Tablets 6 hours as 03/23/2019 needed for nausea Oxycodone-Acetaminophen 1 tab by mouth 30tabs Vassilios 03/03/2019 - every 6 hours MD Brendan 03/10/2019 10-325mg Tablets as needed meyer Oxycodone-Acetaminophen 1 tabs by 30tabs Vassiljean carlos 03/01/2019 - mouth every 6 MD Brendan 03/23/2019 5-325mg Tablets hours as needed pain Hydrocodone 1 tab by mouth 30tabs Geovanny 03/01/2019 - Bitartrate/Acetaminophe every 6 hours MD Brendan 03/23/2019 n as needed pain 5-325mg Tablets Oxycodone-Acetaminophen 1 tabs by 30tabs Geovanny 03/01/2019 - mouth every 6 MD Brendan 03/23/2019 5-325mg Tablets hours as needed pain Hydrocodone 2 tabs by 56tabs Geovanny 02/10/2019 - Bitartrate/Acetaminophe mouth every 6 MD Brendan 03/23/2019 n hours as 5-325mg Tablets needed pain Oxycodone-Acetaminophen 2 tabs by 56tabs Geovanny 02/10/2019 - mouth every 6 MD Brendan 03/23/2019 5-325mg Tablets hours as needed pain Cyclobenzaprine HCL 1 by mouth 30tabs M51.36 Geovanny 02/04/2019 - 10mg every 8 h as MD Brendan 06/21/2019 Tablets needed Immunizations CPT Code Status Date Vaccine Lot # [id number] Given 11/04/2007 Tdap - Tetanus/Diptheria/Acellular Pertussis Vital Signs Date Vital Result Comment 07/06/2019 8:33am Height 74 inches 6'2" Weight 238.00 lb Heart Rate 92 /min BP Systolic Sitting 124 mmHg Lue large cuff BP Diastolic Sitting 88 mmHg Lue large cuff Respiratory Rate 16 /min BMI (Body Mass Index) 30.6 kg/m2 06/27/2019 2:59pm Height 74 inches 6'2" Weight 235.00 lb Heart Rate 92 /min BP Systolic 126 mmHg BP Diastolic 86 mmHg O2 % BldC Oximetry 98 % BMI (Body Mass Index) 30.2 kg/m2 Results Test Acquired Facility Test Result H/L Range Note Date Laboratory 04/26/2019 [facility] Helico Pylori Negative Negative 1 test finding [address] [address] [phone] Celiac Panel 04/26/2019 [facility] Tissue <1.2 U/mL [address] [place] [address] IgA Ab [phone] Immunoglobulin A 154 mg/dL 61 - 356 Celiac Interpretation See Comment 3 Laboratory 04/26/2019 [facility] TSH (Thyroid 1.47 Normal 0.34 -5.60 test finding 101 [facility] Stim Horm) mcIU/[place] [address] [phone] CBC No Diff 04/26/2019 [facility] White Blood 6.3 10^3/uL Normal 3.5-10.[address] [place] [address] [phone] Red Blood Count 4.77 10^6/uL Normal 4.18-5.48 Hemoglobin 13.7 g/dL Low 14.0-18.0 Hematocrit 41 % Low 42-52 Mean Corpuscular Volume 86 fL Normal 80-94 Mean Corpuscular Hemoglobin 29 pg Normal 27-31 Mean Corpuscular HGB Conc 34 g/dL Normal 31-36 Red Cell Distribution Width 14 % Normal 10-15 Platelet Count 155 10^3/uL Normal 150-450 Mean Platelet Volume 9.6 fL Normal 7.4-10.4 Laboratory test 04/26/2019 [facility] Amylase 45 U/L Normal 29 -103 finding [address] [place] [address] [phone] Lipase 18 U/L Normal 11.0-82.0 Liver Function 04/26/2019 [facility] Total Protein 6.6 g/dL Normal 6.4-8.9 Panel [address] [place] [address] [phone] Albumin 4.3 g/dL Normal 3.2-5.2 Globulin 2.3 g/dL Normal 2-4 Albumin/Globulin Ratio 1.9 Normal 1-3 Total Bilirubin 0.30 mg/dL Normal 0.2-1.0 Direct Bilirubin 0.00 mg/dL Low 0.03-0.18 Alkaline Phosphatase 58 U/L Normal 34-104 Alt 28 U/L Normal 7-52 Ast 23 U/L Normal 13-39 Comp Metabolic 03/23/2019 [facility] Sodium 136 mmol/L Normal 135-145 Panel 101 [place] [address] [phone] Potassium 4.0 mmol/L Normal 3.5-5.0 Chloride 102 mmol/L Normal 101-111 Co2 Carbon Dioxide 30 mmol/L Normal 22-32 Anion Gap 4 mmol/L Normal 2-11 Glucose 109 mg/dL High 70-100 Blood Urea Nitrogen 13 mg/dL Normal 6-24 Creatinine 0.93 mg/dL Normal 0.67-1.17 BUN/Creatinine Ratio 14.0 Normal 8-20 Calcium 9.8 mg/dL Normal 8.6-10.3 Total Protein 7.0 g/dL Normal 6.4-8.9 Albumin 4.5 g/dL Normal 3.2-5.2 Globulin 2.5 g/dL Normal 2-4 Albumin/Globulin Ratio 1.8 Normal 1-3 Total Bilirubin 0.60 mg/dL Normal 0.2-1.0 Alkaline Phosphatase 66 U/L Normal 34-104 Alt 32 U/L Normal 7-52 Ast 28 U/L Normal 13-39 Egfr Non- 95.4 >60 Egfr 115.4 >60 4 Laboratory test 03/23/2019 [facility] C Reactive < 1.00 Normal <8.[address] Protein mg/[place] [address] [phone] Lipase 13 U/L Normal 11.0-82.0 Lactic Acid 1.2 mmol/L Normal 0.5-2.0 5 Urinalysis Profile 03/23/2019 [facility] Urine Color Yola [address] [place] [address] [phone] Urine Appearance Clear Urine Specific [place] 1.025 Normal 1.010-1.030 Urine pH 6.0 Normal 5-9 Urine Urobilinogen Negative Negative Urine Ketones Trace Abnormal Negative Urine Protein Negative Negative Urine Leukocytes Negative Negative Urine Blood Negative Negative Urine Nitrite Negative Negative Urine Bilirubin Negative Negative Urine Glucose Negative Negative Laboratory test 02/09/2019 [facility] C Reactive < 1.00 Normal <8.[address] Protein mg/[place] [address] [phone] Blood Culture SEE RESULT BELOW 6 Comp Metabolic 02/09/2019 [facility] Sodium 136 mmol/L Normal 135-[address] [place] [address] [phone] Chloride 104 mmol/L Normal 101-111 Co2 Carbon Dioxide 28 mmol/L Normal 22-32 Calcium 9.5 mg/dL Normal 8.6-10.3 Albumin 4.3 g/dL Normal 3.2-5.2 Total Bilirubin 0.30 mg/dL Normal 0.2-1.0 Glucose 100 mg/dL Normal 70-100 Blood Urea Nitrogen 17 mg/dL Normal 6-24 Creatinine 0.88 mg/dL Normal 0.67-1.17 BUN/Creatinine Ratio 19.3 Normal 8-20 Total Protein 7.3 g/dL Normal 6.4-8.9 Globulin 3.0 g/dL Normal 2-4 Albumin/Globulin Ratio 1.4 Normal 1-3 Alkaline Phosphatase 80 U/L Normal 34-104 Alt 115 U/L High 7-52 Egfr Non- 101.7 >60 Egfr 123.0 >60 7 Potassium TNP mmol/L 3.5-5.0 8 Anion Gap 4 mmol/L Normal 2-11 Ast TNP U/L 13-39 9 Laboratory test 02/09/2019 [facility] Lactic Acid 1.0 mmol/L Normal 0.5-2.0 [address] [place] [address] [phone] CBC Auto Diff 02/09/2019 [facility] White Blood 6.5 Normal 3.5 -10.[address] Count 10^3/[place] [address] [phone] Red Blood Count 5.14 10^6/uL Normal 4.18-5.48 Hemoglobin 15.2 g/dL Normal 14.0-18.0 Hematocrit 45 % Normal 42-52 Mean Corpuscular Volume 87 fL Normal 80-94 Mean Corpuscular Hemoglobin 30 pg Normal 27-31 Mean Corpuscular HGB Conc 34 g/dL Normal 31-36 Red Cell Distribution Width 14 % Normal 10-15 Platelet Count 168 10^3/uL Normal 150-450 Mean Platelet Volume 9.5 fL Normal 7.4-10.4 Abs Neutrophils 2.6 10^3/uL Normal 1.5-7.7 Abs Lymphocytes 2.5 10^3/uL Normal 1.0-4.8 Abs Monocytes 1.0 10^3/uL High 0-0.8 Abs Eosinophils 0.4 10^3/uL Normal 0-0.6 Abs Basophils 0.1 10^3/uL Normal 0-0.2 Abs Nucleated RBC 0.0 10^3/uL Granulocyte % 39.9 % Lymphocyte % 37.7 % Monocyte % 15.4 % Eosinophil % 6.0 % Basophil % 1.0 % Nucleated Red Blood Cells % 0.2 Laboratory test 02/09/2019 [facility] Potassium TNP mmol/L 3.5-5.0 11, [address] [place] [address] [phone] Ast Redraw TNP U/L 13-39 13 Urinalysis Profile 01/25/2019 [facility] Urine Color Yellow [address] [place] [address] [phone] Urine Appearance Cloudy Urine Specific [place] 1.031 High 1.010-1.030 Urine pH 6.0 Normal 5-9 Urine Urobilinogen Negative Negative Urine Ketones Negative Negative Urine Protein Negative Negative Urine Leukocytes Negative Negative Urine Blood Negative Negative Urine Nitrite Negative Negative Urine Bilirubin Negative Negative Urine Glucose Negative Negative Inr/Protime 01/25/2019 [facility] Inr 1.07 Normal 0.82-1.[address] [place] [address] [phone] Laboratory test 01/25/2019 [facility] Partial 36.1 Normal 26.0 -38.[address] [place] [address] Time PTT [phone] CBC No Diff 01/25/2019 [facility] White Blood 6.3 Normal 3.5- 10.8 DRIVE Count 10^3/[place] [address] [phone] Red Blood Count 4.95 10^6/uL Normal 4.18-5.48 Hemoglobin 14.7 g/dL Normal 14.0-18.0 Hematocrit 43 % Normal 42-52 Mean Corpuscular Volume 87 fL Normal 80-94 Mean Corpuscular Hemoglobin 30 pg Normal 27-31 Mean Corpuscular HGB Conc 34 g/dL Normal 31-36 Red Cell Distribution Width 14 % Normal 10-15 Platelet Count 134 10^3/uL Low 150-450 Mean Platelet Volume 9.4 fL Normal 7.4-10.4 Basic Metabolic 01/25/2019 [facility] Sodium 138 mmol/L Normal 135-[address] [place] [address] [phone] Potassium 3.9 mmol/L Normal 3.5-5.0 Chloride 102 mmol/L Normal 101-111 Co2 Carbon Dioxide 29 mmol/L Normal 22-32 Anion Gap 7 mmol/L Normal 2-11 Glucose 82 mg/dL Normal 70-100 Blood Urea Nitrogen 19 mg/dL Normal 6-24 Creatinine 1.04 mg/dL Normal 0.67-1.17 BUN/Creatinine Ratio 18.3 Normal 8-20 Calcium 9.7 mg/dL Normal 8.6-10.3 Egfr Non- 83.9 >60 Egfr 101.5 >60 17 Type & Screen 01/25/2019 [facility] Patient Blood Type O Positive [address] [place] [address] [phone] Antibody Screen NEGATIVE CBC Auto 01/19/2019 [facility] White Blood 7.0 10^3/uL Normal 3.5-10.8 Diff [address] [place] [address] [phone] Red Blood Count 4.71 10^6/uL Normal 4.18-5.48 Hemoglobin 13.9 g/dL Low 14.0-18.0 Hematocrit 41 % Low 42-52 Mean Corpuscular Volume 88 fL Normal 80-94 Mean Corpuscular Hemoglobin 30 pg Normal 27-31 Mean Corpuscular HGB Conc 34 g/dL Normal 31-36 Red Cell Distribution Width 14 % Normal 10-15 Platelet Count 127 10^3/uL Low 150-450 Mean Platelet Volume 9.6 fL Normal 7.4-10.4 Abs Neutrophils 3.4 10^3/uL Normal 1.5-7.7 Abs Lymphocytes 2.3 10^3/uL Normal 1.0-4.8 Abs Monocytes 0.9 10^3/uL High 0-0.8 Abs Eosinophils 0.3 10^3/uL Normal 0-0.6 Abs Basophils 0.0 10^3/uL Normal 0-0.2 Abs Nucleated RBC 0.0 10^3/uL Granulocyte % 48.9 % Lymphocyte % 33.2 % Monocyte % 13.0 % Eosinophil % 4.3 % Basophil % 0.6 % Nucleated Red Blood Cells % 0.1 Comp Metabolic 01/19/2019 [facility] Sodium 138 mmol/L Normal 135-145 Panel [address] [place] [address] [phone] Potassium 4.6 mmol/L Normal 3.5-5.0 Chloride 104 mmol/L Normal 101-111 Co2 Carbon Dioxide 30 mmol/L Normal 22-32 Anion Gap 4 mmol/L Normal 2-11 Glucose 87 mg/dL Normal 70-100 Blood Urea Nitrogen 13 mg/dL Normal 6-24 Creatinine 0.95 mg/dL Normal 0.67-1.17 BUN/Creatinine Ratio 13.7 Normal 8-20 Calcium 9.4 mg/dL Normal 8.6-10.3 Total Protein 6.8 g/dL Normal 6.4-8.9 Albumin 4.4 g/dL Normal 3.2-5.2 Globulin 2.4 g/dL Normal 2-4 Albumin/Globulin Ratio 1.8 Normal 1-3 Total Bilirubin 0.40 mg/dL Normal 0.2-1.0 Alkaline Phosphatase 52 U/L Normal 34-104 Alt 21 U/L Normal 7-52 Ast 20 U/L Normal 13-39 Egfr Non- 93.1 >60 Egfr 112.6 >60 18 Laboratory 01/19/2019 [facility] Magnesium 2.0 mg/dL Normal 1.9-2.7 test finding [address] [place], [place] [address] [phone] Inr/Protime 01/19/2019 [facility] Inr 1.06 Normal 0.82-1.09 [address] [place] [address] [phone] Urinalysis 01/19/2019 [facility] Urine Color Yellow Profile [facility] [place] [address] [phone] Urine Appearance Clear Urine Specific [place] 1.024 Normal 1.010-1.030 Urine pH 5.0 Normal 5-9 Urine Urobilinogen Negative Negative Urine Ketones Negative Negative Urine Protein Negative Negative Urine Leukocytes 1+ Abnormal Negative Urine Blood Negative Negative Urine Nitrite Negative Negative Urine Bilirubin Negative Negative Urine Glucose Negative Negative Urine White Blood Cell Trace(0-5/hpf) Absent Urine Red Blood Cell Trace(0-2/hpf) Absent Urine Bacteria Absent Absent Urine Squamous Epithelial Cell Present Abnormal Absent Laboratory test 01/19/2019 [facility] Hemoglobin A1c 5.9 % High 4.0-5.6 20 finding 101 [facility] ([facility] [place], [place] [address] [phone] Urine Culture And 01/19/2019 [facility] Urine Culture SEE [address] [place] [address] BELOW [phone] 1 Test Performed by: [facility] - [address] [address] Chemotherapist: Pieter Laboy M.D. Ph.D.; CLIA# [id number] 2 REFERENCE VALUE <4.0 (Negative) Test Performed by: [facility] [place] [address] Chemotherapist: Pieter Laboy M.D. Ph.D.; CLIA# [id number] 3 Negative serology. Celiac disease unlikely. However, approximately 10% of patients with celiac disease are seronegative. Also, patients who are already adhering to a gluten-free diet may be seronegative. If celiac disease is highly clinically suspected, consider HLA-DQ typing. Test Performed by: [facility] [place] [address] Chemotherapist: Pieter Laboy M.D. Ph.D.; CLIA# [id number] 4 Because ethnic data is not always [...] 5 Kidney failure <15 (or dialysis) 5 [facility] Severe Sepsis and Septic Shock Management Bundle Measure requires all lactic acids initially measuring >2.0 mmol/L be repeated. 6 SEE RESULT BELOW Name: RONI LUNDY : [address]: Reggie Hernandez MD Acct: [id number] Unit: [id number] AGE: 28 Location: ED Re02/09/19 SEX: M Status: REG ER SPEC: [id number] CASSANDRA: 02/09/[address]: Delicia MEMBRENO REQ: [id number] RECD: 02/09/19 STATUS: JOY FULLER DR: Frankie Hernandez MD _ SOURCE: BLOOD,VENO SPDESC: ORDERED: Blood Cult COMMENTS: Patient is On Antibiotics? NO Procedure Result Reported Site Aerobic Culture Bottle Final 02/14/19- 1655 ML No Growth Day 5 Anaerobic Culture Bottle Final 02/14/19- 1655 ML No Growth Day 5 * ML - Main Lab . END OF REPORT DEPARTMENT OF PATHOLOGY, [address] [place] [address] Ahmet Carlos M.D. Director [facility] # [id number] 7 Because ethnic data is not always readily [...] 15-29 5 Kidney failure <15 (or dialysis) 8 Specimen Hemolyzed. Result may not be valid. Unable to report test result due to hemolysis. 9 Unable to report test result due to hemolysis. 10 [facility] Severe Sepsis and Septic Shock Management Bundle Measure requires all lactic acids initially measuring >2.0 mmol/L be repeated. 11 Specimen hemolyzed. Unable to perform tests requested. [id number] was called for recollect at 1939 o 12 Specimen Hemolyzed. Result may not be valid. Unable to report test result due to hemolysis. 13 Unable to report test result due to hemolysis. 14 AA 01/28 15 Standard intensity warfarin therapeutic range: 2.0-3.0 High intensity warfarin therapeutic range: 2.5-3.5 16 AA 01/28 17 Because ethnic data is not always readily [...] 15-29 5 Kidney failure <15 (or dialysis) 18 Because ethnic data is not always readily [...] 15-29 5 Kidney failure <15 (or dialysis) 19 Standard intensity warfarin therapeutic range: 2.0-3.0 High intensity warfarin therapeutic range: 2.5-3.5 20 Therapeutic target for the treatment of diabetes mellitus patients is <7% HBA1C, and in selective patients <6.0%. Please refer to [place] [employer] diabetic care guidelines for further information. 21 SEE RESULT BELOW Name: RONI LUNDY : [address]: Frankie Akbar MD Acct: [id number] Unit: [id number] AGE: 28 Location: LAB Re01/19/19 SEX: M Status: REG REF SPEC: [id number] CASSANDRA: 01/19/19-12[address] [facility] DR: Frankie Akbar MD REQ: [id number] RECD: 01/19/19-1252 STATUS: COMP _ SOURCE: URINE SPDESC: ORDERED: Urine Culture Procedure Result Reported Site Urine Culture Final 01/20/19- 1306 ML No Growth (<1,000 CFU/mL) * ML - Main Lab . END OF REPORT DEPARTMENT OF PATHOLOGY, [address] [place] [address] Ahmet Carlos M.D. Director [facility] # [id number] Procedures Date Code Description Status 01/28/2019 60995 Use Of Operating Microscope Completed 01/28/2019 39220 Laminotomy W/Decomp NRV RT,One Interspace,Lumbar Completed 01/28/2019 75873 Laminotomy W/Decomp NRV RT,One Interspace,Lumbar Completed 01/25/2019 56445 EKG, Interpretation Only Completed Medical Devices Description No Information Available Encounters Type Date Location Provider Dx Diagnosis Office Visit 05/18/2019 Neurosurgery Sathya Christianson, Z48.89 Encounter for 10:30a [facility] other specified surgical aftercare M54.5 Low back pain Office Visit 04/26/2019 [facility] Gastroenterology Mabel R10.9 Unspecified 9:15a TRINI Campo abdominal pain Z79.891 jail (current) use of opiate analgesic K59.00 Constipation, unspecified D64.9 Anemia, unspecified Office Visit 03/23/2019 1:00p [facility] Joel Akbar MD R11.2 Nausea with Medicine - Suite vomiting, R unspecified R10.9 Unspecified abdominal pain Office Visit 01/19/2019 10:20a [facility] Internal Frankie Akbar Z01.810 Encounter for Medicine - preprocedural Suite R cardiovascular examination M51.36 Other intervertebral disc degeneration, lumbar region M51.16 Intervertebral disc disorders w radiculopathy, lumbar region Q89.3 Situs inversus I48.0 Paroxysmal atrial fibrillation R30.0 Dysuria R35.0 Frequency of micturition Office 01/14/2019 Neurosurgery Vassilios M51.36 Other Visit 2:30p [facility] MD intervertebral disc degeneration, lumbar region M51.16 Intervertebral disc disorders w radiculopathy, lumbar region Assessments Date Code Description Provider 07/06/2019 M51.16 Intervertebral disc disorders with Geovanny Cardona MD radiculopathy, lumbar reg 06/27/2019 Z79.891 jail (current) use of opiate Frankie Akbar MD analgesic 06/27/2019 R10.9 Unspecified abdominal pain Frankie Akbar MD 06/27/2019 R11.2 Nausea with vomiting, unspecified Frankie Akbar MD 06/27/2019 M54.5 Low back pain Frankie Akbar MD 05/18/2019 Z48.89 Encounter for other specified HASEEB Delvalle surgical aftercare 05/18/2019 M54.5 Low back pain HASEEB Delvalle 04/26/2019 R10.9 Unspecified abdominal pain Mabel Campo, PROJECT CONSULTANT 04/26/2019 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 Mabel Campo NP 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 04/26/2019 K59.00 Constipation, unspecified Mabel Campo, PROJECT CONSULTANT 04/26/2019 D64.9 Anemia, unspecified Mabel Campo, PROJECT CONSULTANT 04/20/2019 R10.9 Unspecified abdominal pain Frankie Akbar MD 04/20/2019 R11.2 Nausea with vomiting, unspecified Frankie Akbar MD 04/20/2019 Z48.89 Encounter for other specified Frankie Akbar MD surgical aftercare 03/23/2019 R11.2 Nausea with vomiting, unspecified Frankie Akbar MD 03/23/2019 R10.9 Unspecified abdominal pain Frankie Akbar MD 03/01/2019 Z48.89 Encounter for other specified HASEEB Delvalle surgical aftercare 02/14/2019 Z48.89 Encounter for other specified Vasmaurisio Cardona MD surgical aftercare 02/11/2019 Z48.89 Encounter for other specified Geovanny Cardona MD surgical aftercare 02/04/2019 Z48.89 Encounter for other specified Geovanny Cardona MD surgical aftercare 01/29/2019 Z48.89 Encounter for other specified Geovanny Cardona MD surgical aftercare 01/28/2019 M51.16 Intervertebral disc disorders with HASEEB Delvalle radiculopathy, lumbar reg 01/28/2019 M51.16 Intervertebral disc disorders with Vassilios Dimopoulos, MD radiculopathy, lumbar reg 01/25/2019 R94.31 Abnormal electrocardiogram [ECG] Nic Bernardo M.D., [facility], [EKG] [facility] 01/19/2019 Z01.810 Encounter for preprocedural Frankie Akbar MD cardiovascular examination 01/19/2019 M51.36 Other intervertebral disc Geovanny Cardona MD degeneration, lumbar region 01/19/2019 M51.36 Other intervertebral disc Frankie Akbar MD degeneration, lumbar region 01/19/2019 M51.16 Intervertebral disc disorders with Geovanny Cardona MD radiculopathy, lumbar reg 01/19/2019 M51.16 Intervertebral disc disorders with Frankie Akbar MD radiculopathy, lumbar reg 01/19/2019 Q89.3 Situs inversus Frankie Akbar MD 01/19/2019 I48.0 Paroxysmal atrial fibrillation Frankie Akbar MD 01/19/2019 R30.0 Dysuria Frankie Akbar MD 01/19/2019 R35.0 Frequency of micturition Frankie Akbar MD 01/14/2019 M51.36 Other intervertebral disc Geovanny Cardona MD degeneration, lumbar region 01/14/2019 M51.16 Intervertebral disc disorders with Geovanny Cardona MD radiculopathy, lumbar reg Plan of Treatment Future Appointment(s):10/27/2019 9:40 am - Frankie Akbar MD at [facility] Internal Medicine - [address]/06/2018 - Geovanny Cardona MDM51.16 Intervertebral disc disorders w radiculopathy, lumbar regionFollow up:RV prn Functional Status Description No Information Available Mental Status Description No Information Available Referrals Refer to Dr Reason for Referral Status Appt Date Stefan Clarke MD nausea vomiting, abdominal pain. Sent 04/26/2019 [address] [place] [phone] Georgi Dominguez MD extensive food allergies, now with chronic Sent 04/[address] [facility] [place] [address] [place] [address] [phone]
--- OUTSIDE RECORDS SUMMARY | 2019-07-24 04:10 | XMS REPORT | Continuity of Care Document ---
:1990 External Reference #:[id number] Author Name JOSUE Dean (transmitted by agent of provider Georgi Dominguez) Address [address] [facility] [address] [place] [address] Care Team Providers Name Role Phone Frankie Akbar MD - Hospitalist Care Team Information Advertising Vice President [phone] Problems Active Problems Provider Date Dietetic gastroenteritis JOSUE Dean Onset: 07/04/2019 Allergy to other foods JOSUE Dean Onset: 04/20/2019 Social History Type Date Description Comments Sex Unknown Tobacco Use Start: Unknown Light tobacco smoker (10 or fewer cigarettes/day) Tobacco Use Start: Unknown Light tobacco smoker (10 or fewer cigarettes/day) Tobacco Use Start: Unknown Also smokes marijuana Smoking Status Reviewed: 07/04/19 Also smokes marijuana Allergies, Adverse Reactions, Alerts Description No Known Drug Allergies Medications Active Medications SIG Qnty Indications Ordering Provider Date Epinephrine use as directed 2units Z91.018 Georgi Donaldson 04/20/2019 as needed for MD Alberto 0.3mg/0.3ML Solution anaphylaxis. Auto-Inject Hydrocodone-Acetamin Frankie Akbar MD ophen 5-325mg Tablets Omeprazole Frankie Akbar MD 40mg Capsules Ondansetron HCL Unknown 4mg Tablets Zyrtec Allergy one tablet by Unknown 10mg mouth every Tablets evening Ibuprofen TK 1 T PO tid Unknown 600mg prn P Tablets Immunizations Description No Information Available Vital Signs Date Vital Result Comment 07/04/2019 2:40pm BP Systolic 138 mmHg BP Diastolic 80 mmHg Height 72 inches 6'0" Weight 229.00 lb BMI (Body Mass Index) 31.1 kg/m2 Heart Rate 88 /min Respiratory Rate 16 /min Body Temperature 98.0 F O2 % BldC Oximetry 99 % 04/20/2019 11:18am BP Systolic 128 mmHg BP Diastolic 82 mmHg Height 72 inches 6'0" Weight 229.25 lb BMI (Body Mass Index) 31.1 kg/m2 Heart Rate 92 /min Respiratory Rate 18 /min Body Temperature 97.9 F O2 % BldC Oximetry 98 % Results Description No Information Available Procedures Description No Information Available Medical Devices Description No Information Available Encounters Type Date Location Provider Dx Diagnosis Office Visit 07/04/2019 [place] Angela Pike K52.29 Other allergic and 2:30p [place], dietetic gastroenteritis RPA-C and colitis Office Visit 04/20/2019 [place] Pike Z91.018 Allergy to other foods 11:00a CALLIE King-C Assessments Date Code Description Provider 07/04/2019 K52.29 Other allergic and dietetic Angela King RPA-Juliet gastroenteritis and colitis 04/20/2019 Z91.018 Allergy to other foods Angela King RPA-C Plan of Treatment Future Appointment(s):09/26/2019 3:30 pm - Angela King RPA-C at [facility]/04/2019 - KATRINA DeanCK52.29 Other allergic and dietetic gastroenteritis and colitisComments:Patient is RAST positive (all weak positives) to the following foods; peanut, wheat, rye, barley, tomato, garlic, shrimp, malgorzata nut and sesame seed. Patient is already gluten free and strictly avoids peanuts. I have advised him to start a food elimination diet of the other foods and monitor for improvement in symptoms. This will help correlate any relationship between his chronic GI symptoms and these foods. I suspect use of narcotic pain medication and marijuana may also be triggering his nausea and vomiting. The time frame from when his GI symptoms began directly correlates with use of these drugs. Patient has follow-up with his Chief Science Officer later this week and if no cause for his symptomsis determined and he fails to respond to food elimination diet, I would recommend follow-up with pain medicine to discuss other non-narcotic pain treatment options.Follow up:3 months. Functional Status Description No Information Available Mental Status Description No Information Available Referrals Description No Information Available
--- OUTSIDE RECORDS SUMMARY | 2019-07-24 04:10 | XMS REPORT | Continuity of Care Document ---
:1990 External Reference #:[id number] Author Name Frankie Akbar MD (transmitted by agent of provider Domi Dominguez) Address [address] [place] [address] Care Team Providers Name Role Phone Frankie Akbar MD - Hospitalist Care Team Information Director Of Instructional Technology [phone] Problems Active Problems Provider Date Constipation - [...] Unknown 10/29 quit date Smoking Status Reviewed: 06/27/1910/29 quit date ETOH Use used to drink [...] Medications Active Medications SIG Qnty Indications Ordering Date Provider Ibuprofen three times a 90tabs M54.5 Frankie Akbar MD 06/27/2019 600mg Tablets day as needed for pain Omeprazole 1 by mouth every 30caps R10.9 Frankie Akbar MD 03/23/[address] day Ondansetron take 1 every 8 90tabs Frankie Akbar MD 03/23/2019 8mg Tablets hours as needed Dispers nausea Hydrocodone take 1 tab qpm 30tabs R10.9 Frankie Akbar MD 03/23/2019 Bitartrate/Acetaminophe or during n physical therapy 5-325mg Tablets as needed for pain Cyclobenzaprine HCL 1 by mouth every 30tabs M51.36 Vassilios 02/04/2019 10mg 8 h as needed MD Brendan Tablets Juan [facility] takes daily Unknown 500-32.5mg Tablets History Medications Ondansetron HCL take one every 6 30tabs Frankie Akbar MD 03/09/2019 - 4mg hours as needed 03/23/2019 Tablets for nausea Oxycodone-Acetaminoph 1 tab by mouth 30tabs V[place]ilios 03/03/2019 - en every 6 hours as MD Brendan 03/10/2019 10-325mg Tablets needed meyer Oxycodone-Acetaminoph 1 tabs by mouth 30tabs Vassilios 03/01/2019 - en every 6 hours as MD Brendan 03/23/2019 5-325mg Tablets needed pain Hydrocodone 1 tab by mouth 30tabs V[place]ilios 03/01/2019 - Bitartrate/Acetaminop every 6 hours as MD Brendan 03/23/2019 hen needed pain 5-325mg Tablets Oxycodone-Acetaminoph 1 tabs by mouth 30tabs [place]os 03/01/2019 - en every 6 hours as MD Brendan 03/23/2019 5-325mg Tablets needed pain Hydrocodone 2 tabs by mouth 56tabs Vassilios 02/10/2019 - Bitartrate/Acetaminop every 6 hours as MD Brendan 03/23/2019 hen needed pain 5-325mg Tablets Oxycodone-Acetaminoph 2 tabs by mouth 56tabs Vassilios 02/10/2019 - en every 6 hours as MD Brendan 03/23/2019 5-325mg Tablets needed pain Immunizations CPT Code Status Date Vaccine Lot # [id number] Given 11/04/2007 Tdap - Tetanus/Diptheria/Acellular Pertussis Vital Signs Date Vital Result Comment 06/27/2019 2:59pm Height 74 inches 6'2" Weight 235.00 lb Heart Rate 92 /min BP Systolic 126 mmHg BP Diastolic 86 mmHg O2 % BldC Oximetry 98 % BMI (Body Mass Index) 30.2 kg/m2 05/18/2019 10:37am Height 74 inches 6'2" Weight 234.00 lb Heart Rate 86 /min BP Systolic Sitting 118 mmHg Lue Reg Cuff BP Diastolic Sitting 86 mmHg Lue Reg Cuff Pain Level 8 BMI (Body Mass Index) 30.0 kg/m2 Results Test Acquired Facility Test Result H/L Range Note Date Laboratory 04/26/2019 [facility] Helico Pylori Negative Negative 1 test finding [address] [place] [address] [phone] Celiac Panel 04/26/2019 [facility] Tissue <1.2 U/mL [address] [place] [address] IgA Ab [phone] Immunoglobulin A 154 mg/dL 61 - 356 Celiac Interpretation See Comment 3 Laboratory 04/26/2019 [facility] TSH (Thyroid 1.47 Normal 0.34 -5.60 test finding 101 [facility] Stim Horm) mcIU/[place] [address] [phone] CBC No Diff 04/26/2019 [facility] White Blood 6.3 10^3/uL Normal 3.5-10.[address] [place] [address] [phone] Red Blood Count 4.77 10^6/uL Normal 4.18-5.48 Hemoglobin 13.7 g/dL Low 14.0-18.0 Hematocrit 41 % Low 42-52 Mean Corpuscular Volume 86 fL Normal 80-94 Mean Corpuscular Hemoglobin 29 pg Normal 27-31 Mean Corpuscular HGB Conc 34 g/dL Normal 31-36 Red Cell Distribution Width 14 % Normal 10-15 Platelet Count 155 10^3/uL Normal 150-450 Mean Platelet Volume 9.6 fL Normal 7.4-10.4 Laboratory test 04/26/2019 [facility] Amylase 45 U/L Normal 29 -103 finding [address] [place] [address] [phone] Lipase 18 U/L Normal 11.0-82.0 Liver Function 04/26/2019 [facility] Total Protein 6.6 g/dL Normal 6.4-8.9 Panel [address] [place] [address] [phone] Albumin 4.3 g/dL Normal 3.2-5.2 Globulin 2.3 g/dL Normal 2-4 Albumin/Globulin Ratio 1.9 Normal 1-3 Total Bilirubin 0.30 mg/dL Normal 0.2-1.0 Direct Bilirubin 0.00 mg/dL Low 0.03-0.18 Alkaline Phosphatase 58 U/L Normal 34-104 Alt 28 U/L Normal 7-52 Ast 23 U/L Normal 13-39 Comp Metabolic 03/23/2019 [facility] Sodium 136 mmol/L Normal 135-145 Panel [address] [place] [address] [phone] Potassium 4.0 mmol/L Normal 3.5-5.0 Chloride 102 [...] Egfr 115.4 >60 4 Laboratory test 03/23/2019 [facility] C Reactive < 1.00 Normal <8.[address] Protein mg/[place] [address] [phone] Lipase 13 U/L Normal 11.0-82.0 Lactic Acid 1.2 mmol/L Normal 0.5-2.0 5 Urinalysis Profile 03/23/2019 [facility] Urine Color Yola [address] [place] [address] [phone] Urine Appearance Clear Urine Specific [place] 1.025 Normal 1.010-1.030 Urine pH 6.0 Normal 5-9 Urine Urobilinogen Negative Negative Urine Ketones Trace Abnormal Negative Urine Protein Negative Negative Urine Leukocytes Negative Negative Urine Blood Negative Negative Urine Nitrite Negative Negative Urine Bilirubin Negative Negative Urine Glucose Negative Negative Laboratory test 02/09/2019 [facility] C Reactive < 1.00 Normal <8.[address] Protein mg/[place] [address] [phone] Blood Culture SEE RESULT BELOW 6 Comp Metabolic 02/09/2019 [facility] Sodium 136 mmol/L Normal 135-[address] [place] [address] [phone] Chloride 104 mmol/L Normal 101-111 Co2 Carbon [...] TNP U/L 13-39 9 Laboratory test 02/09/2019 [facility] Lactic Acid 1.0 mmol/L Normal 0.5-2.0 [address] [place] [address] [phone] CBC Auto Diff 02/09/2019 [facility] White Blood 6.5 Normal 3.5 -10.[address] Count 10^3/[place] [address] [phone] Red Blood Count 5.14 10^6/uL Normal 4.18-5.48 [...] Blood Cells % 0.2 Laboratory test 02/09/2019 [facility] Potassium TNP mmol/L 3.5-5.0 11, [address] [place] [address] [phone] Ast Redraw TNP U/L 13-39 13 Urinalysis Profile 01/25/2019 [facility] Urine Color Yellow [address] [place] [address] [phone] Urine Appearance Cloudy Urine Specific [place] 1.031 High 1.010-1.030 Urine pH 6.0 Normal 5-9 Urine Urobilinogen Negative Negative Urine Ketones Negative Negative Urine Protein Negative Negative Urine Leukocytes Negative Negative Urine Blood Negative Negative Urine Nitrite Negative Negative Urine Bilirubin Negative Negative Urine Glucose Negative Negative Inr/Protime 01/25/2019 [facility] Inr 1.07 Normal 0.82-1.[address] [place] [address] [phone] Laboratory test 01/25/2019 [facility] Partial 36.1 Normal 26.0 -38.[address] [place] [address] Time PTT [phone] CBC No Diff 01/25/2019 [facility] White Blood 6.3 Normal 3.5- 10.8 DRIVE Count 10^3/[place] [address] [phone] Red Blood Count 4.95 10^6/uL Normal 4.18-5.48 Hemoglobin 14.7 g/dL Normal 14.0-18.0 Hematocrit 43 % Normal 42-52 Mean Corpuscular Volume 87 fL Normal 80-94 Mean Corpuscular Hemoglobin 30 pg Normal 27-31 Mean Corpuscular HGB Conc 34 g/dL Normal 31-36 Red Cell Distribution Width 14 % Normal 10-15 Platelet Count 134 10^3/uL Low 150-450 Mean Platelet Volume 9.4 fL Normal 7.4-10.4 Basic Metabolic 01/25/2019 [facility] Sodium 138 mmol/L Normal 135-[address] [place] [address] [phone] Potassium 3.9 mmol/L Normal 3.5-5.0 Chloride 102 mmol/L Normal 101-111 Co2 Carbon Dioxide 29 mmol/L Normal 22-32 Anion Gap 7 mmol/L Normal 2-11 Glucose 82 mg/dL Normal 70-100 Blood Urea Nitrogen 19 mg/dL Normal 6-24 Creatinine 1.04 mg/dL Normal 0.67-1.17 BUN/Creatinine Ratio 18.3 Normal 8-20 Calcium 9.7 mg/dL Normal 8.6-10.3 Egfr Non- 83.9 >60 Egfr 101.5 >60 17 Type & Screen 01/25/2019 [facility] Patient Blood Type O Positive [address] [place] [address] [phone] Antibody Screen NEGATIVE CBC Auto 01/19/2019 [facility] White Blood 7.0 10^3/uL Normal 3.5-10.8 Diff [address] [place] [address] [phone] Red Blood Count 4.71 10^6/uL Normal 4.18-5.48 [...] Blood Cells % 0.1 Comp Metabolic 01/19/2019 [facility] Sodium 138 mmol/L Normal 135-145 Panel [address] [place] [address] [phone] Potassium 4.6 mmol/L Normal 3.5-5.0 Chloride 104 [...] >60 Egfr 112.6 >60 18 Laboratory 01/19/2019 [facility] Magnesium 2.0 mg/dL Normal 1.9-2.7 test finding [facility] [place] [address] [phone] Inr/Protime 01/19/2019 [facility] Inr 1.06 Normal 0.82-1.09 19 [facility] [place] [address] [phone] Urinalysis 01/19/2019 [facility] Urine Color Yellow Profile [facility] [place] [address] [phone] Urine Appearance Clear Urine Specific [place] 1.024 Normal 1.010-1.030 Urine pH 5.0 Normal [...] Cell Present Abnormal Absent Laboratory test 01/19/2019 [facility] Hemoglobin A1c 5.9 % High 4.0-5.6 20 finding [facility] ([facility]GB) [place] [address] [phone] Urine Culture And 01/19/2019 [facility] Urine Culture SEE 21 Sensitivities [facility] [place] [address] BELOW [phone] 1 Test Performed by: [facility] - [address] [address] Privacy Manager: Pieter Laboy M.D. Ph.D.; CLIA# [id number] 2 REFERENCE VALUE <4.0 (Negative) Test Performed by: [facility] [place] [address] Privacy Manager: Pieter Laboy M.D. Ph.D.; CLIA# [id number] 3 Negative serology. Celiac disease unlikely. However, approximately 10% of patients with celiac disease are seronegative. Also, patients who are already adhering to a gluten-free diet may be seronegative. If celiac disease is highly clinically suspected, consider HLA-DQ typing. Test Performed by: [facility] [place] [address] Privacy Manager: Pieter Laboy M.D. Ph.D.; CLIA# [id number] 4 Because ethnic data is not always [...] 5 Kidney failure <15 (or dialysis) 5 [facility] Severe Sepsis and Septic Shock Management Bundle Measure requires all lactic acids initially measuring >2.0 mmol/L be repeated. 6 SEE RESULT BELOW Name: RONI LUNDY : [address]: Reggie Hernandez MD Acct: [id number] Unit: [id number] AGE: 28 Location: ED Re02/09/19 SEX: M Status: REG ER SPEC: [id number] CASSANDRA: 02/09/[address]: Delicia MEM[facility] REQ: [id number] RECD: 02/09/19 STATUS: JOY FULLER DR: Frankie Hernandez MD _ SOURCE: BLOOD,VENO SPDESC: ORDERED: Blood Cult COMMENTS: Patient is On Antibiotics? NO Procedure Result Reported Site Aerobic Culture Bottle Final 02/14/19- 1655 ML No Growth Day 5 Anaerobic Culture Bottle Final 02/14/19- 1655 ML No Growth Day 5 * ML - Main Lab . END OF REPORT DEPARTMENT OF PATHOLOGY, [address] [place] [address] Ahmet Carlos M.D. Director [facility] # [id number] 7 Because ethnic data is not always [...] report test result due to hemolysis. 10 [facility] Severe Sepsis and Septic Shock Management Bundle Measure requires all lactic acids initially measuring >2.0 mmol/L be repeated. 11 Specimen hemolyzed. Unable to perform tests requested. [id number] was called for recollect at 1939 o [...] in selective patients <6.0%. Please refer to [place] [employer] diabetic care guidelines for further information. 21 SEE RESULT BELOW Name: RONI LUNDY : [address]: Frankie Akbar MD Acct: [id number] Unit: [id number] AGE: 28 Location: LAB Re01/19/19 SEX: M Status: REG REF SPEC: [id number] CASSANDRA: 01/19/19-[address] [facility] [address]: Frankie Akbar MD REQ: [id number] RECD: 01/19/19 STATUS: COMP _ SOURCE: URINE SPDESC: ORDERED: Urine Culture Procedure Result Reported Site Urine Culture Final 01/20/19- 1306 ML No Growth (<1,000 CFU/mL) * ML - Main Lab . END OF REPORT DEPARTMENT OF PATHOLOGY, [address] [place] [address] Ahmet Carlos M.D. Director [facility] # [id number] Procedures Date Code Description Status 01/28/2019 87353 Use Of Operating Microscope Completed 01/28/2019 07050 Laminotomy W/Decomp NRV RT,One Interspace,Lumbar Completed 01/28/2019 28231 Laminotomy W/Decomp NRV RT,One Interspace,Lumbar Completed 01/25/2019 48911 EKG, Interpretation Only Completed 12/31/2018 77780 Nerve Conduction 05-06 Studies Completed 12/31/2018 08455 Needle Electromyography Complete, Five Or More Muscles Completed Studied Medical Devices Description No Information Available Encounters Type Date Location Provider Dx Diagnosis Office Visit 05/18/2019 Neurosurgery Sathya Christianson, Z48.89 Encounter for 10:30a [facility] other specified surgical aftercare M54.5 Low back pain Office Visit 04/26/2019 [facility] Gastroenterology Mabel R10.9 Unspecified 9:15a TRINI Campo abdominal pain Z79.891 M[facility] (current) use of opiate analgesic K59.00 Constipation, unspecified D64.9 Anemia, unspecified Office Visit 03/23/2019 1:00p [facility] Joel Akbar MD R11.2 Nausea with Medicine - Suite vomiting, R unspecified R10.9 Unspecified abdominal pain Office Visit 01/19/2019 10:20a [facility] Joel Akbar Z01.810 Encounter for Medicine - preprocedural [...] lumbar region Assessments Date Code Description Provider 06/27/2019 Z79.891 M[facility] (current) use of opiate Frankie Akbar MD analgesic 06/27/2019 R10.9 Unspecified abdominal pain Frankie Akbar MD 06/27/2019 R11.2 Nausea with vomiting, unspecified Frankie Akbar MD 06/27/2019 M54.5 Low back pain Frankie Akbar MD 05/18/2019 Z48.89 Encounter for other specified HASEEB Delvalle surgical aftercare 05/18/2019 M54.5 Low back pain HASEEB Delvalle 04/26/2019 R10.9 Unspecified abdominal pain Mabel Campo, HAZARDOUS [employer]STANCES SCIENTIST 04/26/2019 Z79.891 [facility] (current) use of opiate Mabel Campo NP analgesic 04/26/2019 K59.00 Constipation, unspecified Mabel Campo, HAZARDOUS SUBSTANCES SCIENTIST 04/26/2019 D64.9 Anemia, unspecified Mabel Campo, HAZARDOUS SUBSTANCES SCIENTIST 04/20/2019 R10.9 Unspecified abdominal pain Frankie Akbar MD 04/20/2019 R11.2 Nausea with vomiting, unspecified Frankie Akbar MD 04/20/2019 Z48.89 Encounter for other specified Frankie Akbar MD surgical aftercare 03/23/2019 R11.2 Nausea with vomiting, unspecified Frankie Akbar MD 03/23/2019 R10.9 Unspecified abdominal pain Frankie Akbar MD 03/01/2019 Z48.89 Encounter for other specified HASEEB Delvalle surgical aftercare 02/14/2019 Z48.89 Encounter for other specified Geovanny Cardona MD surgical aftercare 02/11/2019 Z48.89 Encounter for other specified Geovanny Cardona MD surgical aftercare 02/04/2019 Z48.89 Encounter for other specified Geovanny Cardona MD surgical aftercare 01/29/2019 Z48.89 Encounter for other specified Geovanny Cardona MD surgical aftercare 01/28/2019 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 Plan of Treatment Future Appointment(s):10/27/2019 9:40 am - Frankie Akbar MD at [facility] Internal Medicine - [address]/06/2018 8:30 am - Geovanny Cardona MD at [facility]06/27/2019 - Frankie Akbar MDZ79.891 MCC (current ) use of opiate reiqxlmlrV77.9 Unspecified abdominal painFollow up:4 emeihdU18.2 Nausea with vomiting, jytexkiwjzlE51.5 Low back painNew Medication: Ibuprofen 600 mg - three times a day as needed for pain Functional Status Description No Information Available Mental Status Description No Information Available Referrals Refer to Reason for Referral Status Appt Date Stefan Clarke MD nausea vomiting, abdominal pain. Sent 04/26/[address] [facility] [place] [address] [phone] Georgi Dominguez MD extensive food allergies, now with chronic Sent 04/13 nausea [address] [facility] [place] [address] [place] [address] [phone]
[2019-07-24] MEDS ORDERED: methylPREDNISolone 125 MG* 2 ML VIAL IV ONE (04:25)
[2019-07-24] MEDS ORDERED: NS 0.9% 1000 ML** 1,000 ML IV ONE (04:25)
[2019-07-24] MEDS ORDERED: diPHENhydraMINE IV* 50 MG/ML 1 ml VIAL (BENADRYL) IV ONE (04:25)
[2019-07-24] MEDS ORDERED: Famotidine IV* 10 MG/ML 2 ML (20 mg) IV SLOW PU ONE (04:27)
--- NOTE | 2019-07-24 04:48 | ED ---
Allergic Reaction/Systemic - HPI Summary HPI Summary: Patient is a 28 y/o M w/ allergies to banana, egg, gluten, milk, latex, and nuts who presents to [facility] for concerns of allergic reaction. He states that at around 2100 07/23/19, he and some companions were eating some calzones. He mistakenly ate half of the wrong calzone. Patient had subsequent onset of pruritic rash to his thighs, tongue swelling, throat-closing sensation, and an epigastric pain that is characterized as a burning sensation. He took Benadryl and Epi-pen [employer]. However, he states that it feels as if his tongue swelling has progressively worsened. No allergies to medications noted. PSHx of back surgery in 2017. FMHx of HTN endorsed. He reports some alcohol usage but denies tobacco and substance usage. Home medications and allergies are reviewed. Significant other is present in the room. - History of Current Complaint Chief Complaint: EDAllergicReaction Hx Obtained From: Patient Onset/Duration: Started hours ago, Worse Since Timing: Lasting Hours Pain Intensity: 0 Pain Scale Used: 0-10 Numeric Location: Discrete @ - rash at thighs, epigastric pain, tongue swelling, throat closing sensation Character: Swelling - tongue, Pruritus - thighs Associated Signs And Symptoms: Positive: Abdominal Pain - epigastric, Rash - thighs, Throat Tightening, Other: - positive - tongue swelling - Allergies/Home Medications Allergies/Adverse Reactions: Allergies Allergy/AdvReac Type Severity Reaction Status Date / Time banana Allergy Severe Rash Verified 07/24/19 04:02 egg Allergy Severe Rash And Verified 07/24/19 04:02 Itching, throat swelling gluten Allergy Severe Swelling/Ra Verified 07/24/19 05:48 sh latex Allergy Severe Rash Verified 07/24/19 04:02 milk Allergy Severe Vomiting, Verified 07/24/19 04:02 sever stomach pain nut - unspecified Allergy Severe Anaphylatic Verified 07/24/19 04:02 Shock garlic Allergy Rash Verified 07/24/19 05:48 tomato Allergy Rash Verified 07/24/19 05:48 Home Medications: Home Medications Ibuprofen TAB* [Motrin TAB* 600 MG] 600 mg PO TID PRN 07/24/19 [History Confirmed 07/24/19] Omeprazole 40 mg PO DAILY 07/24/19 [History Confirmed 07/24/19] diphenhydrAMINE HCl [Benadryl Allergy 25 MG CAP] 1 - 2 cap PO Q8H PRN 07/24/19 [ History Confirmed 07/24/19] PMH/Surg Hx/FS Hx/Imm Hx Endocrine/Hematology History: Denies: Hx Anticoagulant Therapy - asa 325mg daily, Hx Diabetes, Hx Thyroid Disease Cardiovascular History: Reports: Hx Atrial Fibrillation Denies: Hx Hypertension, Hx Pacemaker/ICD Comment Only: 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 Respiratory History: Denies: Hx Chronic Obstructive Pulmonary Disease (COPD) Comment Only: Hx Asthma - SEASONAL ALLERGIES GI History: Reports: Hx Gastroesophageal Reflux Disease Denies: Hx Ulcer History: Reports: Hx Kidney Stones - hx of Comment Only: Other Problems/Disorders - intermittent pain in stomach - multiple food allergies Musculoskeletal History: Denies: Hx Scoliosis Sensory History: Denies: Hx Contacts or Glasses, Hx Hearing Aid Opthamlomology History: Denies: Hx Contacts or Glasses Neurological History: Denies: Hx Headaches, Hx Seizures, Other Neuro Impairments/Disorders Psychiatric History: Denies: Hx Panic Disorder - Cancer History Hx Chemotherapy: No - Surgical History Surgery Procedure, Year, and Place: COLONOSCOPY. - Immunization History Date of Tetanus Vaccine: utd Date of Influenza Vaccine: none Infectious Disease History: No Infectious Disease History: Denies: Hx Hepatitis, Hx Human Immunodeficiency Virus (HIV), Traveled Outside the [place] in Last 30 Days - Family History Known Family History: Positive: Hypertension, Diabetes - Social History Alcohol Use: Occasionally Hx Substance Use: No Substance Use Type: Reports: None Substance Use Comment - Amount & Last Used: rarely Hx Tobacco Use: Yes Smoking Status (MU): Light Every Day Tobacco Smoker Type: Cigarettes Amount Used/How Often: 1/2 PPD- did get nicorette gum and patches to quit Review of Systems ENT: Other - positive - tongue swelling, throat closing Positive: Abdominal Pain - epigastric Positive: Rash - thighs All Other Systems Reviewed And Are Negative: Yes Physical Exam - Summary Physical Exam Summary: General: Well-developed, Well-nourished male. No acute distress. HEENT: Normocephalic, Atraumatic. Eyes: Conjuctiva normal, PERRL. Oropharynx: Clear, mucous membranes moist, (-) exudates. Neck: Soft, FROM, (-) lymphadenopathy, (-) thyromegaly, (-) JVD. Cardiovascular: Normal sinus rhythm, (-) murmur. Lungs: Clear to auscultation bilaterally (-) wheezes, (-) rales, (-) rhonchi. Abdomen: Soft, non-tender, non-distended, (-) organomegaly, normal bowel sounds. Back: (-) CVA tenderness Extremities: No edema. Skin: Warm, dry, (-) rash. Neuro: Alert and oriented x3, no focal deficits. Psychiatric: Mood normal, affect normal. Triage Information Reviewed: Yes Vital Signs On Initial Exam: Initial Vitals Temp Pulse Resp BP Pulse Ox 97.8 F 100 18 141/93 98 07/24/19 04:02 07/24/19 04:02 07/24/19 04:02 07/24/19 04:02 07/24/19 04:02 Vital Signs Reviewed: Yes Procedures - Sedation Patient Received Moderate/Deep Sedation with Procedure: No Diagnostics - Vital Signs Vital Signs Temp Pulse Resp BP Pulse Ox 07/24/19 04:02 97.8 F 100 18 141/93 98 - Laboratory Lab Statement: Any lab studies that have been ordered have been reviewed, and results considered in the medical decision making process. Re-Evaluation - Re-Evaluation First Eval Re-Evaluation Time: 05:57 - Comment: Patient is stable for discharge. Benadryl Q6H as needed for the patient. Allergic Reaction Course/Dx - Course Course Of Treatment: 28 year old male with symptoms of allergic reaction after accidentally eating the wrong meal. shortness of breath, feeling like throat is closing up. multiple food allergies. took benadryl and epi-pen prior to arrival. During ED course, patient received fluids, solu-medrol 125 mg IV, Pepcid 40 mg IV, and Benadryl 50 mg IV. patient had sginificant improvement in symptoms, discharged to home. continue benadryl as needed. Follow up with PCP, follow up sooner for any worsening symptoms. - Diagnoses Provider Diagnoses: Allergic reaction Discharge ED - Sign-Out/Discharge Documenting (check all that apply): Patient Departure - discharge - Discharge Plan Condition: Stable Disposition: HOME Patient Education Materials: General Allergic Reaction (ED) Referrals: Frankie Akbar MD [Primary Care Provider] - 3 Days Additional Instructions: PLEASE RETURN TO ED FOR ANY NEW OR CONCERNING SYMPTOMS. PLEASE FOLLOW UP WITH YOUR PRIMARY CARE PHYSICIAN WITHIN THREE DAYS. - Billing Disposition and Condition Condition: STABLE Disposition: Home - Attestation Statements Document Initiated by Sivakumar: Yes Documenting Scribe: JANELLE PAPPAS Provider For Whom Sivakumar is Documenting (Include Credential): CHARO BRITTON MD Scribe Attestation: IJANELLE, scribed for CHARO BRITTON MD on 07/27/19 at 2000. Scribe Documentation Reviewed: Yes Provider Attestation: The documentation as recorded by the JANELLE pardo accurately reflects the service I personally performed and the decisions made by me, CHARO BRITTON MD Status of Scribe Document: Viewed
[2019-07-24 06:29] VITALS: BP 121/84
== END 2019-07-24 06:28 | disposition home or self-care (01) ==
LOC: ED 04:00
DX: T78.40XA Allergy, unspecified, initial encounter (principal); X58.XXXA Exposure to other specified factors, initial encounter; E11.9 Type 2 diabetes mellitus without complications; E07.9 Disorder of thyroid, unspecified; I48.91 Unspecified atrial fibrillation; K21.9 Gastro-esophageal reflux disease without esophagitis; F17.210 Nicotine dependence, cigarettes, uncomplicated; Z79.82 Long term (current) use of aspirin; Z79.899 Other long term (current) drug therapy; Z91.040 Latex allergy status
CPT/HCPCS: 96361; 96374; 96375; 99283; J1200; J2930